=== PATIENT | female | born 1965 | race Two or more races ===

== ENCOUNTER 2018-10-26 18:33 | Emergency (ER) | payer SELFPAY ==
[~2018-10-26] VITALS: Ht 165.1 cm; Wt 95.3 kg
[2018-10-26] MEDS ORDERED: cefTRIAXone SOD 1,000 MG VL IM ONE (21:15)
[2018-10-26] MEDS ORDERED: DEXAMETHASONE SOD PHOS 10MG/1ML VIAL INJ IM ONE (21:15)
[2018-10-26 21:20] VITALS: BP 148/74
== END 2018-10-26 22:26 | disposition home or self-care (01) ==
LOC: ER 18:36
DX: Q69.9 Polydactyly, unspecified (principal)
CPT/HCPCS: 96372; 99283; J0696; J1100

== ENCOUNTER 2019-06-19 11:13 | Emergency (ER) | payer MEDICAID ==
[~2019-06-19] VITALS: Ht 167.6 cm; Wt 93.9 kg
[2019-06-19 11:45] VITALS: BP 142/71
== END 2019-06-19 13:43 | disposition home or self-care (01) ==
LOC: ER 11:13
DX: L98.9 Disorder of the skin and subcutaneous tissue, unspecified (principal)
CPT/HCPCS: 10120

== ENCOUNTER 2022-01-17 22:10 | Emergency (ER) | payer MEDICAID ==
[~2022-01-17] VITALS: Ht 170.2 cm; Wt 86.2 kg
[~2022-01-17 22:10] MED LIST: ASPI-431; ATOR40TA52; INSU1INJ26 SC; INSUINJ18 SC; LISI-716; METF-371
[2022-01-17 23:07] LABS: Eosinophils # (auto) 0 10 ^3/uL (0-0.8); Hemoglobin 12.4 g/dL (12.2-16.2); Lymphocytes # (auto) 2.2 10 ^3/uL (0.4-5.4)
[2022-01-17 23:11] LABS: Basophils # (auto) 0 10 ^3/uL (0-0.2); Basophils % (auto) 0.3 % (0.0-2.0); Hematocrit 38.2 % (36.0-46.0); Lymphocytes % (auto) 13.7 % (10.0-50.0); Mean Corpuscular Hemoglobin 26.3 pg (28.0-32.0); Mean Corpuscular Hgb Conc. 32.6 g/dL (32.0-36.0); Mean Corpuscular Volume 80.9 fL (80.0-100.0); Monocytes # (auto) 1.1 10 ^3/uL (0-1.3); Monocytes % (auto) 6.6 % (0.0-12.0); Neutrophils # (auto) 12.6 10 ^3/uL (1.6-8.6); Neutrophils % (auto) 79.4 % (37.0-80.0); Nucleated Red Blood Cells % 0.1 %; Red Blood Cells 4.72 10^6/uL (4.0-5.20); Red Cell Distribution Width 14.4 % (11.8-14.3); White Blood Cell 15.9 10^3/uL (4.4-10.8)
[2022-01-17 23:27] LABS: Albumin 3.2 g/dL (3.4-5.0); Potassium 4.2 mmol/L (3.5-5.1)
[2022-01-17 23:29] LABS: Bilirubin, Total 0.6 mg/dL (0.2-1.0); Total Protein 7.5 g/dL (6.4-8.2)
[2022-01-17] MEDS ORDERED: ACETAMINOPHEN 500 MG TAB PO ONE (23:45)
[2022-01-18 02:09] LABS: Urine Bacteria NONE SEEN /hpf (None Seen); Urine Blood TRACE /uL (Negative); Urine Mucus FEW (None Seen); Urine Specific Gravity 1.024 (1.001-1.035); Urine WBC 17 /hpf (0 - 5)
[2022-01-18] MEDS ORDERED: PRED20TA2 PO (05:50)
[2022-01-18] MEDS ORDERED: ACE3T PO (05:50)
[2022-01-18] MEDS ORDERED: LEVO500T31 PO (05:50)
[2022-01-18 06:09] VITALS: BP 113/47
== END 2022-01-18 06:11 | disposition home or self-care (01) ==
LOC: ER 22:10
DX: N39.0 Urinary tract infection, site not specified (principal); J20.9 Acute bronchitis, unspecified; Z20.822 Contact with and (suspected) exposure to COVID-19
CPT/HCPCS: 36415; 71045; 74176; 80053; 81001; 84484; 85025; 93005

== ENCOUNTER 2022-11-01 18:03 | Emergency (ER) | payer MEDICAID ==
[~2022-11-01] VITALS: Ht 167.6 cm; Wt 86.0 kg
[~2022-11-01 18:03] MED LIST changes: +ACE3T PO; +LEVO500T31 PO; +PRED20TA2 PO
[2022-11-01 18:17] VITALS: BP 150/89
[2022-11-01 18:59] LABS: Urine Bacteria NONE SEEN /hpf (None Seen); Urine Blood TRACE /uL (Negative); Urine Specific Gravity 1.026 (1.001-1.035); Urine WBC 3 /hpf (0 - 5)
[2022-11-01 19:41] LABS: Basophils # (auto) 0 10 ^3/uL (0-0.2); Basophils % (auto) 0.3 % (0.0-2.0); Eosinophils # (auto) 0 10 ^3/uL (0-0.8); Hematocrit 38.3 % (36.0-46.0); Hemoglobin 12.1 g/dL (12.2-16.2); Lymphocytes % (auto) 14.1 % (10.0-50.0); Mean Corpuscular Hemoglobin 25.3 pg (28.0-32.0); Mean Corpuscular Hgb Conc. 31.5 g/dL (32.0-36.0); Mean Corpuscular Volume 80.3 fL (80.0-100.0); Monocytes # (auto) 1.1 10 ^3/uL (0-1.3); Neutrophils # (auto) 11.2 10 ^3/uL (1.6-8.6); Neutrophils % (auto) 77.6 % (37.0-80.0); Nucleated Red Blood Cells % 0.1 %; Red Blood Cells 4.78 10^6/uL (4.0-5.20); Red Cell Distribution Width 15.1 % (11.8-14.3); White Blood Cell 14.4 10^3/uL (4.4-10.8)
[2022-11-01 19:45] LABS: BUN/Creatinine Ratio 11.9 (10.0-20.0); Calcium 8.8 mg/dL (8.5-10.1); Potassium 4.7 mmol/L (3.5-5.1)
[2022-11-01 19:48] LABS: Bilirubin, Total 0.5 mg/dL (0.2-1.0); Total Protein 8.2 g/dL (6.4-8.2)
[2022-11-01] MEDS ORDERED: SODIUM CHLORIDE 0.9% 1,000 ML IV ONE (22:00)
[2022-11-01] MEDS ORDERED: cefTRIAXone 1GM/50ML D5W 50 ML IV ONE (22:00)
[2022-11-01] MEDS ORDERED: InsuLIN REG 1unit/0.01ml Soln (100units/ml) IV ONE (22:00)
== END 2022-11-01 23:04 | disposition left against medical advice (07) ==
LOC: ER 18:03
DX: R05.9 Cough, unspecified (principal); E11.9 Type 2 diabetes mellitus without complications; E78.5 Hyperlipidemia, unspecified; I10 Essential (primary) hypertension; R11.2 Nausea with vomiting, unspecified
CPT/HCPCS: 36415; 71045; 80053; 81001; 82962; 84484; 85025

== ENCOUNTER 2022-11-09 17:55 | Inpatient (IN) | payer MEDICAID ==
[~2022-11-09] VITALS: Ht 167.6 cm; Wt 90.3 kg
[2022-11-09 18:39] LABS: Eosinophils % (auto) 0.3 % (0.0-7.0); Hemoglobin 10.8 g/dL (12.2-16.2); Monocytes # (auto) 1.2 10 ^3/uL (0-1.3); Nucleated Red Blood Cells % 0.1 %
[2022-11-09 18:41] LABS: Basophils # (auto) 0.1 10 ^3/uL (0-0.2); Basophils % (auto) 0.7 % (0.0-2.0); Eosinophils # (auto) 0 10 ^3/uL (0-0.8); Hematocrit 32.8 % (36.0-46.0); Lymphocytes # (auto) 2.6 10 ^3/uL (0.4-5.4); Lymphocytes % (auto) 15.3 % (10.0-50.0); Mean Corpuscular Hemoglobin 25.6 pg (28.0-32.0); Mean Corpuscular Hgb Conc. 32.9 g/dL (32.0-36.0); Mean Corpuscular Volume 77.8 fL (80.0-100.0); Monocytes % (auto) 7.2 % (0.0-12.0); Neutrophils # (auto) 12.9 10 ^3/uL (1.6-8.6); Neutrophils % (auto) 76.5 % (37.0-80.0); Red Blood Cells 4.22 10^6/uL (4.0-5.20); Red Cell Distribution Width 15.3 % (11.8-14.3); White Blood Cell 16.9 10^3/uL (4.4-10.8)
[2022-11-09 18:56] LABS: Albumin 2.6 g/dL (3.4-5.0); Calcium 9.3 mg/dL (8.5-10.1); Potassium 3.4 mmol/L (3.5-5.1)
[2022-11-09 18:59] LABS: Lactic Acid w/Reflex 2.1 mmol/L (0.4-2.0)
[2022-11-09 19:00] LABS: BUN/Creatinine Ratio 10.8 (10.0-20.0); Bilirubin, Total 0.4 mg/dL (0.2-1.0); Total Protein 8.9 g/dL (6.4-8.2)
[2022-11-09] MEDS ORDERED: PIPERACILLIN-TAZOB 3.375GM 100 ML IV ONE (19:15)
[2022-11-09] MEDS ORDERED: CLINDAMYCIN 600MG IV 50 ML IV ONE (20:30)
[2022-11-09] MEDS ORDERED: SODIUM CHLORIDE 0.9% 1,000 ML IV ONE ×2 (20:30)
[2022-11-09] MEDS ORDERED: NITROGLYCERIN 0.4 MG SL TAB SL PRN (23:30)
[2022-11-09] MEDS ORDERED: ONDANSETRON HCL 4 MG/2 ML VIAL IV PRN (23:30)
[2022-11-09] MEDS ORDERED: DOCUSATE SOD 100 MG CAP PO PRN (23:30)
[2022-11-09] MEDS ORDERED: DEXTROSE (50%) 50ML SYRG IV PRN (23:30)
[2022-11-09] MEDS ORDERED: MORPHINE SULFATE INJ 2 MG/ml SYRG IV PRN ×2 (23:30)
[2022-11-09] MEDS ORDERED: HYDROcodone-ACET 5/325MG TAB PO PRN (23:30)
[2022-11-10] VITALS (7 sets, daily range): BP systolic 103–138; BP diastolic 43–67
[2022-11-10] MEDS ORDERED: CLINDAMYCIN 600MG IV 50 ML IV SCH (06:00)
[2022-11-10] MEDS: SODIUM CHLOR 0.9% PF (SALINE LOCK) 10ML VIAL/SYR IV SCH ×3 (06:10→21:25)
[2022-11-10] MEDS: PIPERACILLIN-TAZOB 3.375GM 100 ML IV SCH ×3 (06:10→21:22)
[2022-11-10] MEDS: InsuLIN REG 1unit/0.01ml Soln (100units/ml) SC SCH ×4 (06:18→21:41)
[2022-11-10] MEDS: ACCU-CHEK COMFORT CURVE STRIP VI SCH ×4 (06:18→21:26)
[2022-11-10 06:25] LABS: Basophils # (auto) 0 10 ^3/uL (0-0.2); Eosinophils # (auto) 0.1 10 ^3/uL (0-0.8); Eosinophils % (auto) 0.5 % (0.0-7.0); Monocytes # (auto) 0.9 10 ^3/uL (0-1.3)
[2022-11-10 06:27] LABS: Basophils % (auto) 0.3 % (0.0-2.0); Hematocrit 29.9 % (36.0-46.0); Hemoglobin 9.6 g/dL (12.2-16.2); Lymphocytes # (auto) 2.8 10 ^3/uL (0.4-5.4); Lymphocytes % (auto) 21.5 % (10.0-50.0); Mean Corpuscular Volume 78.1 fL (80.0-100.0); Monocytes % (auto) 7.4 % (0.0-12.0); Neutrophils % (auto) 70.3 % (37.0-80.0); Red Blood Cells 3.83 10^6/uL (4.0-5.20); Red Cell Distribution Width 15.1 % (11.8-14.3); White Blood Cell 12.8 10^3/uL (4.4-10.8)
[2022-11-10 06:37] LABS: Potassium 3.8 mmol/L (3.5-5.1)
[2022-11-10 06:53] LABS: BUN/Creatinine Ratio 12.5 (10.0-20.0); Bilirubin, Total 0.3 mg/dL (0.2-1.0); Calcium 8.5 mg/dL (8.5-10.1); Total Protein 7.1 g/dL (6.4-8.2)
[2022-11-10] MEDS: CLINDAMYCIN 600MG IV 50 ML IV SCH ×2 (10:00→18:00)
[2022-11-10] MEDS: ASPirin-EC 81 mg tab PO SCH (10:29)
[2022-11-10] MEDS: LISINOPRIL 10 MG TAB PO SCH (10:30)
[2022-11-10] MEDS ORDERED: GADOTERATE MEG 10 MMOL/20ml INJ (0.5MMOL/ml) IV ONE (11:07)
[2022-11-10] MEDS ORDERED: LIDOCAINE 1% HCL (LOCAL ANESTH.) INJ 20ML MDV IJ ONE ×2 (12:30)
[2022-11-10] MEDS: ATORVASTATIN 20 MG TAB PO SCH (21:22)
[2022-11-10] MEDS: DAKINS QUARTER STR 0.125% (NaHypochlorite) 473 ML TOPICAL SOL TOP SCH (21:26)
[2022-11-11 00:20] LABS: Urine WBC None Seen /hpf (0 - 5)
[2022-11-11 00:34] LABS: Urine Bacteria NONE SEEN /hpf (None Seen); Urine Blood Negative /uL (Negative); Urine Specific Gravity 1.005 (1.001-1.035)
[2022-11-11] MEDS: CLINDAMYCIN 600MG IV 50 ML IV SCH ×2 (02:00→10:00)
[2022-11-11 05:00] VITALS: BP 117/50
[2022-11-11 05:15] LABS: Eosinophils # (auto) 0.1 10 ^3/uL (0-0.8); Lymphocytes # (auto) 3.6 10 ^3/uL (0.4-5.4); Monocytes # (auto) 0.8 10 ^3/uL (0-1.3)
[2022-11-11 05:18] LABS: Basophils # (auto) 0 10 ^3/uL (0-0.2); Basophils % (auto) 0.5 % (0.0-2.0); Eosinophils % (auto) 0.9 % (0.0-7.0); Hematocrit 29.3 % (36.0-46.0); Hemoglobin 9.6 g/dL (12.2-16.2); Lymphocytes % (auto) 37.2 % (10.0-50.0); Mean Corpuscular Hemoglobin 25.5 pg (28.0-32.0); Mean Corpuscular Hgb Conc. 32.9 g/dL (32.0-36.0); Mean Corpuscular Volume 77.5 fL (80.0-100.0); Monocytes % (auto) 8.6 % (0.0-12.0); Neutrophils # (auto) 5.2 10 ^3/uL (1.6-8.6); Neutrophils % (auto) 52.8 % (37.0-80.0); Nucleated Red Blood Cells % 0.2 %; Red Blood Cells 3.77 10^6/uL (4.0-5.20); Red Cell Distribution Width 15.1 % (11.8-14.3); White Blood Cell 9.8 10^3/uL (4.4-10.8)
[2022-11-11 05:33] LABS: BUN/Creatinine Ratio 10.6 (10.0-20.0); Magnesium 1.9 mg/dL (1.6-2.6); Potassium 4.8 mmol/L (3.5-5.1)
[2022-11-11] MEDS: SODIUM CHLOR 0.9% PF (SALINE LOCK) 10ML VIAL/SYR IV SCH ×3 (05:38→21:46)
[2022-11-11] MEDS: PIPERACILLIN-TAZOB 3.375GM 100 ML IV SCH ×3 (05:38→23:30)
[2022-11-11] MEDS: ACCU-CHEK COMFORT CURVE STRIP VI SCH ×4 (06:21→22:00)
[2022-11-11] MEDS: InsuLIN REG 1unit/0.01ml Soln (100units/ml) SC SCH ×4 (06:26→21:56)
[2022-11-11 09:14] VITALS: BP 111/51
[2022-11-11] MEDS: ASPirin-EC 81 mg tab PO SCH (10:18)
[2022-11-11] MEDS: LISINOPRIL 10 MG TAB PO SCH (10:19)
[2022-11-11] MEDS: DAKINS QUARTER STR 0.125% (NaHypochlorite) 473 ML TOPICAL SOL TOP SCH ×2 (10:21→22:00)
[2022-11-11] MEDS ORDERED: PATIENTS OWN MEDICATION (zyvox 600 MG) IV SCH (13:00)
[2022-11-11 13:04] VITALS: BP 126/57
[2022-11-11] MEDS ORDERED: LINEZOLID 600MG/300ML 300 ML IV SCH (13:08)
[2022-11-11] MEDS: INSULIN 70/30 1unit/0.01ml Susp (100units/ml) SC SCH ×2 (13:16→17:46)
[2022-11-11] MEDS ORDERED: LINEZOLID 600MG/300ML 300 ML IV ONE (13:45)
[2022-11-11 17:00] VITALS: BP 126/60
[2022-11-11 20:00] VITALS: BP 126/60
[2022-11-11] MEDS: LINEZOLID 600MG/300ML 300 ML IV SCH (21:55)
[2022-11-11] MEDS: ATORVASTATIN 20 MG TAB PO SCH (21:56)
[2022-11-12 05:00] VITALS: BP 96/43
[2022-11-12] MEDS: PIPERACILLIN-TAZOB 3.375GM 100 ML IV SCH ×3 (05:21→22:05)
[2022-11-12] MEDS: SODIUM CHLOR 0.9% PF (SALINE LOCK) 10ML VIAL/SYR IV SCH ×3 (05:21→21:50)
[2022-11-12] MEDS: ACCU-CHEK COMFORT CURVE STRIP VI SCH ×4 (06:06→21:51)
[2022-11-12] MEDS: InsuLIN REG 1unit/0.01ml Soln (100units/ml) SC SCH ×5 (06:06→21:51)
[2022-11-12] MEDS: INSULIN 70/30 1unit/0.01ml Susp (100units/ml) SC SCH ×2 (08:00→17:52)
[2022-11-12] MEDS: LINEZOLID 600MG/300ML 300 ML IV SCH ×2 (08:23)
[2022-11-12] MEDS: ASPirin-EC 81 mg tab PO SCH (08:23)
[2022-11-12 08:47] VITALS: BP 108/68
[2022-11-12] MEDS: LISINOPRIL 10 MG TAB PO SCH (08:53)
[2022-11-12] MEDS: DAKINS QUARTER STR 0.125% (NaHypochlorite) 473 ML TOPICAL SOL TOP SCH ×2 (08:53→21:51)
[2022-11-12 13:00] VITALS: BP 144/69
[2022-11-12 17:00] VITALS: BP 115/55
[2022-11-12] MEDS: ACETAMINOPHEN 325 MG TAB PO PRN (18:25)
[2022-11-12 20:00] VITALS: BP 115/55
[2022-11-12] MEDS: ATORVASTATIN 20 MG TAB PO SCH (21:51)
[2022-11-12 22:00] VITALS: BP 121/44
[2022-11-13 05:00] VITALS: BP 134/58
[2022-11-13] MEDS: PIPERACILLIN-TAZOB 3.375GM 100 ML IV SCH ×3 (06:02→21:37)
[2022-11-13] MEDS: SODIUM CHLOR 0.9% PF (SALINE LOCK) 10ML VIAL/SYR IV SCH ×4 (06:02→21:39)
[2022-11-13] MEDS: ACCU-CHEK COMFORT CURVE STRIP VI SCH ×4 (06:03→21:44)
[2022-11-13] MEDS: ASPirin-EC 81 mg tab PO SCH (08:25)
[2022-11-13] MEDS: LISINOPRIL 10 MG TAB PO SCH (08:26)
[2022-11-13] MEDS: INSULIN 70/30 1unit/0.01ml Susp (100units/ml) SC SCH ×2 (08:30→19:07)
[2022-11-13 08:52] VITALS: BP 140/65
[2022-11-13] MEDS: DAKINS QUARTER STR 0.125% (NaHypochlorite) 473 ML TOPICAL SOL TOP SCH ×2 (10:15→21:44)
[2022-11-13] MEDS: LINEZOLID 600MG/300ML 300 ML IV SCH ×2 (10:15→21:38)
[2022-11-13 13:00] VITALS: BP 110/61
[2022-11-13] MEDS: InsuLIN REG 1unit/0.01ml Soln (100units/ml) SC SCH ×3 (15:18→21:44)
[2022-11-13 16:51] LABS: INR 1.04 (0.9-1.15); Partial Thromboplastin Time 23.9 sec (24.6-33.4)
[2022-11-13] MEDS: ACETAMINOPHEN 325 MG TAB PO PRN (17:12)
[2022-11-13] MEDS ORDERED: LIDOCAINE 1% (LOCAL ANESTH.) PF 5ml SDV ID ONE (19:15)
[2022-11-13 20:00] VITALS: BP 111/56
[2022-11-13] MEDS: ATORVASTATIN 20 MG TAB PO SCH ×3 (21:37→23:00)
[2022-11-13 23:03] VITALS: BP 111/56
[2022-11-14 04:41] VITALS: BP 110/55
[2022-11-14] MEDS: PIPERACILLIN-TAZOB 3.375GM 100 ML IV SCH (05:30)
[2022-11-14] MEDS: SODIUM CHLOR 0.9% PF (SALINE LOCK) 10ML VIAL/SYR IV SCH ×3 (05:30→14:16)
[2022-11-14] MEDS: ACCU-CHEK COMFORT CURVE STRIP VI SCH ×3 (06:30→17:57)
[2022-11-14] MEDS: InsuLIN REG 1unit/0.01ml Soln (100units/ml) SC SCH ×3 (06:36→17:00)
[2022-11-14] MEDS ORDERED: VANCOMYCIN PER PHARMACY 0 MG IV SCH (07:45)
[2022-11-14 08:00] VITALS: BP 139/58
[2022-11-14] MEDS: INSULIN 70/30 1unit/0.01ml Susp (100units/ml) SC SCH ×2 (08:00→18:00)
[2022-11-14 09:00] VITALS: BP 139/58
[2022-11-14] MEDS ORDERED: CEFEPIME 2 GM in SODIUM CHL 0.9% 50 ML IV SCH (09:00)
[2022-11-14] MEDS: ASPirin-EC 81 mg tab PO SCH (10:50)
[2022-11-14] MEDS: LISINOPRIL 10 MG TAB PO SCH (10:51)
[2022-11-14] MEDS ORDERED: VANCOMYCIN 1GM/250ML 250 ML IV SCH (11:00)
[2022-11-14] MEDS: DAKINS QUARTER STR 0.125% (NaHypochlorite) 473 ML TOPICAL SOL TOP SCH (11:08)
[2022-11-14 13:00] VITALS: BP 112/75
[2022-11-14 17:00] VITALS: BP 117/60
[2022-11-14 18:24] VITALS: BP 112/75
[2022-11-15] MEDS ORDERED: VANCOMYCIN 1GM/250ML 250 ML IV SCH (01:00)
== END 2022-11-14 21:10 | disposition home health service (06) | DRG 720 ==
LOC: ER 17:55 → OVERFLOW 23:27 → TELE-EAST 11-10 00:40 → EAST 11-10 00:42
PROVIDERS: ADMIT Nurse Practitioner Family; ATTEND Internal Medicine
PROC: 0Y9N0ZZ Drainage of Left Foot, Open Approach (ICD-10-PCS; 2022-11-10)
PROC: 0JBQ0ZZ Excision of Right Foot Subcutaneous Tissue and Fascia, Open Approach (ICD-10-PCS; 2022-11-12)
PROC: 02HV33Z Insertion of Infusion Device into Superior Vena Cava, Percutaneous Approach (ICD-10-PCS; principal; 2022-11-13)
DX: A41.9 Sepsis, unspecified organism (principal); E87.20 Acidosis, unspecified; A48.0 Gas gangrene; E46 Unspecified protein-calorie malnutrition; N17.9 Acute kidney failure, unspecified; E11.52 Type 2 diabetes mellitus with diabetic peripheral angiopathy with gangrene; M86.172 Other acute osteomyelitis, left ankle and foot; E11.621 Type 2 diabetes mellitus with foot ulcer; D50.9 Iron deficiency anemia, unspecified; E88.09 Other disorders of plasma-protein metabolism, not elsewhere classified; L02.612 Cutaneous abscess of left foot; L03.116 Cellulitis of left lower limb; L97.512 Non-pressure chronic ulcer of other part of right foot with fat layer exposed; L97.522 Non-pressure chronic ulcer of other part of left foot with fat layer exposed; E11.69 Type 2 diabetes mellitus with other specified complication; E78.5 Hyperlipidemia, unspecified; I10 Essential (primary) hypertension; Z68.32 Body mass index [BMI] 32.0-32.9, adult; Z80.0 Family history of malignant neoplasm of digestive organs; Z80.8 Family history of malignant neoplasm of other organs or systems; Z79.4 Long term (current) use of insulin
CPT/HCPCS: 36415; 36569; 73700; 73720; 80048; 80053; 81001; 82962; 83036; 83605; 83735; 84484; 85025; 85610; 85730; 87040; 87205; 96361; 96365; 96366; G0378; J1815; J2001; J2543

== ENCOUNTER 2022-12-01 20:07 | Emergency (ER) | payer MEDICAID ==
[~2022-12-01] VITALS: Ht 167.6 cm; Wt 90.9 kg
[~2022-12-01 20:07] MED LIST changes: -ACE3T PO; -LEVO500T31 PO; -PRED20TA2 PO
[2022-12-01] MEDS ORDERED: DexAMETHasone SOD PHOS 10MG/1ML VIAL INJ IM ONE (21:00)
[2022-12-01] MEDS ORDERED: hydrOXYzine 25 MG TAB or CAP PO ONE (21:00)
[2022-12-01] MEDS ORDERED: LEVO500T31 IV (22:00)
[2022-12-01] MEDS ORDERED: HYDR-3682 PO (22:06)
[2022-12-01 22:53] VITALS: BP 105/48
[2022-12-01] MEDS ORDERED: ACETAMINOPHEN 500 MG TAB PO ONE (23:15)
== END 2022-12-01 23:28 | disposition home or self-care (01) ==
LOC: ER 20:07
DX: R21 Rash and other nonspecific skin eruption (principal); T36.1X5A Adverse effect of cephalosporins and other beta-lactam antibiotics, initial encounter; E11.9 Type 2 diabetes mellitus without complications; E78.5 Hyperlipidemia, unspecified; I10 Essential (primary) hypertension; Y92.89 Other specified places as the place of occurrence of the external cause
CPT/HCPCS: 96372; 99283; J1100

== ENCOUNTER 2024-01-30 18:32 | Inpatient (IN) | payer MEDICAID ==
[~2024-01-30] VITALS: Ht 157.5 cm; Wt 93.6 kg
[~2024-01-30 18:32] MED LIST changes: +HYDR-3682 PO; +LEVO500T31 IV; -LISI-716; +LISI10TA34
[2024-01-30] MEDS: ACETAMINOPHEN 325 MG TAB PO ONE (19:01)
[2024-01-30 19:31] LABS: Basophils # (auto) 0.1 10 ^3/uL (0-0.2); Eosinophils # (auto) 0 10 ^3/uL (0-0.8); Eosinophils % (auto) 0.1 % (0.0-7.0); Hemoglobin 11.5 g/dL (12.2-16.2); Lymphocytes # (auto) 1.1 10 ^3/uL (0.4-5.4); Mean Corpuscular Hgb Conc. 32.9 g/dL (32.0-36.0); Monocytes # (auto) 0.6 10 ^3/uL (0-1.3); Red Blood Cells 4.31 10^6/uL (4.0-5.20)
[2024-01-30 19:34] LABS: Basophils % (auto) 0.4 % (0.0-2.0); Hematocrit 34.9 % (36.0-46.0); Lymphocytes % (auto) 7.8 % (10.0-50.0); Mean Corpuscular Hemoglobin 26.6 pg (28.0-32.0); Mean Corpuscular Volume 80.9 fL (80.0-100.0); Neutrophils # (auto) 12.1 10 ^3/uL (1.6-8.6); Neutrophils % (auto) 87.7 % (37.0-80.0); Nucleated Red Blood Cells % 0.1 %; Red Cell Distribution Width 14.6 % (11.8-14.3); White Blood Cell 13.8 10^3/uL (4.4-10.8)
[2024-01-30 19:51] LABS: Alanine Aminotransferase 35 U/L (7-40); Albumin 3.8 g/dL (3.2-4.8); Alkaline Phosphatase 123 U/L (46-116); Anion Gap 8 (5-15); Aspartate Aminotransferase 35 U/L (13-40); BUN/Creatinine Ratio 11.3 (10.0-20.0); Bilirubin, Total 0.7 mg/dL (0.2-1.0); Blood Urea Nitrogen 11 mg/dL (9-23); Calcium 9.2 mg/dL (8.7-10.4); Carbon Dioxide 22 mmol/L (20-30); Chloride 99 mmol/L (98-107); Potassium 4.3 mmol/L (3.5-5.1); Sodium 129 mmol/L (136-145)
[2024-01-30 20:11] LABS: Lactic Acid w/Reflex 2.1 mmol/L (0.4-2.0)
[2024-01-30 20:12] LABS: Glucose 405 mg/dL (74-106)
[2024-01-30] MEDS: SODIUM CHLORIDE 0.9% 1,500 ML IV ONE (20:40)
[2024-01-30 21:42] LABS: INR 1.06 (0.9-1.15); Partial Thromboplastin Time 26.6 SEC (24.5-34.5); Prothrombin Time 11.2 sec (9.3-11.8)
[2024-01-30] MEDS: cefTRIAXone 1GM/50ML D5W 50 ML IV SCH (22:16)
[2024-01-30] MEDS: VANCOMYCIN 1GM/200ML 200 ML IV SCH (22:18)
[2024-01-31] MEDS ORDERED: MORPHINE SULFATE INJ 2 MG/ml SYRG IV PRN (00:30)
[2024-01-31] MEDS ORDERED: DEXTROSE (50%) 50ML SYRG IV PRN ×2 (00:30→09:30)
[2024-01-31] MEDS ORDERED: ONDANSETRON HCL 4 MG/2 ML VIAL IV PRN (00:30)
[2024-01-31] MEDS: CLINDAMYCIN 900MG IV 50 ML IV ONE (01:00)
[2024-01-31] MEDS: HYDROcodone-ACET 5/325MG TAB PO PRN (01:16)
[2024-01-31] MEDS: InsuLIN REG 1unit/0.01ml Soln (100units/ml) SC ONE (01:41)
[2024-01-31] MEDS: ACCU-CHEK COMFORT CURVE STRIP VI SCH ×2 (04:45→11:30)
[2024-01-31] MEDS: InsuLIN REG 1unit/0.01ml Soln (100units/ml) SC SCH ×3 (04:58→21:39)
[2024-01-31 05:40] VITALS: PULSE 84; RESP 18; O2SAT 97
[2024-01-31] MEDS: CLINDAMYCIN 900MG IV 50 ML IV SCH (05:57)
[2024-01-31] MEDS: LISINOPRIL 5 MG TAB PO SCH (08:10)
[2024-01-31 09:00] VITALS: BP 147/71; PULSE 96; RESP 18; TEMP 100; O2SAT 98
[2024-01-31] MEDS ORDERED: VANCOMYCIN PER PHARMACY 0 MG IV SCH (09:45)
[2024-01-31 11:30] LABS: Triglycerides 158 mg/dL (< 150)
[2024-01-31 11:31] LABS: LDL Cholesterol 64 mg/dL (< 100)
[2024-01-31 11:32] LABS: Cholesterol 122 mg/dL (< 200); HDL Cholesterol 32 mg/dL (40-59)
[2024-01-31 13:00] VITALS: BP 131/62; PULSE 89; RESP 16; TEMP 99; O2SAT 97
[2024-01-31] MEDS: LINEZOLID 600MG/300ML 300 ML IV SCH (14:18)
[2024-01-31] MEDS: ASPirin 81 mg TAB PO ONE (14:22)
[2024-01-31 16:08] LABS: Triglycerides 177 mg/dL (< 150)
[2024-01-31 16:09] LABS: LDL Cholesterol 71 mg/dL (< 100)
[2024-01-31 16:10] LABS: Cholesterol 136 mg/dL (< 200); HDL Cholesterol 33 mg/dL (40-59)
[2024-01-31 17:00] VITALS: BP 104/52; PULSE 95; RESP 17; TEMP 99.6; O2SAT 94
[2024-01-31 17:34] LABS: Urine Bacteria None Seen /hpf (None Seen)
[2024-01-31] MEDS: PANTOPRAZOLE 40 MG TAB PO ONE (17:52)
[2024-01-31] MEDS: ENOXAPARIN SOD 40 MG/0.4 ML SYRINGE SC ONE (17:54)
[2024-01-31 17:55] LABS: Urine Blood 1+ /uL (Negative); Urine Clarity Clear (Clear); Urine Color Light-Yellow (Yellow); Urine Protein, UAD 1+ (Negative); Urine Specific Gravity 1.023 (1.001-1.035); Urine Urobilinogen Normal (Negative); Urine WBC 1 /hpf (0 - 5)
[2024-01-31] MEDS: CEFEPIME 1GM/ 50ML 50 ML IV SCH (17:55)
[2024-01-31] MEDS: INSULIN LANTUS (GLARGINE) 1 /0.01ml (100units/ml) SC SCH (18:08)
[2024-01-31 20:10] LABS: Rapid Influenza A Negative (Negative); Rapid Influenza B Negative (Negative)
[2024-01-31 20:11] LABS: COVID19 ANTIGEN SOFIA FIA NEGATIVE (NEGATIVE)
[2024-01-31 21:00] VITALS: BP_SYST 128; BP_SYST 98; BP_DIAS 53; BP_DIAS 69; PULSE 66; PULSE 91; RESP 21; TEMP 100.5; TEMP 98.1; O2SAT 96; O2SAT 98
[2024-01-31] MEDS: ACETAMINOPHEN 325 MG TAB PO PRN (21:47)
[2024-01-31] MEDS: ATORVASTATIN 20 MG TAB PO SCH (21:47)
[2024-02-01] VITALS (7 sets, daily range): BP systolic 111–137; BP diastolic 40–81; PULSE 77–89; RESP 14–20; TEMP 97.5–100.1; O2SAT 95–97
[2024-02-01] MEDS: PANTOPRAZOLE 40 MG TAB PO SCH (05:58)
[2024-02-01 07:10] LABS: Basophils # (auto) 0 10 ^3/uL (0-0.2); Basophils % (auto) 0.1 % (0.0-2.0); Eosinophils # (auto) 0 10 ^3/uL (0-0.8); Eosinophils % (auto) 0.3 % (0.0-7.0); Monocytes # (auto) 1.5 10 ^3/uL (0-1.3)
[2024-02-01 07:13] LABS: Hematocrit 32.3 % (36.0-46.0); Hemoglobin 10.7 g/dL (12.2-16.2); Lymphocytes # (auto) 2.1 10 ^3/uL (0.4-5.4); Mean Corpuscular Hemoglobin 26.4 pg (28.0-32.0); Mean Corpuscular Volume 80.1 fL (80.0-100.0); Monocytes % (auto) 10.9 % (0.0-12.0); Neutrophils # (auto) 10.3 10 ^3/uL (1.6-8.6); Neutrophils % (auto) 73.7 % (37.0-80.0); Nucleated Red Blood Cells % 0.1 %; Red Blood Cells 4.03 10^6/uL (4.0-5.20); Red Cell Distribution Width 14.4 % (11.8-14.3)
[2024-02-01 07:28] LABS: Chloride 102 mmol/L (98-107); Potassium 4.1 mmol/L (3.5-5.1)
[2024-02-01 07:29] LABS: Anion Gap 7 (5-15); Carbon Dioxide 26 mmol/L (20-30)
[2024-02-01 07:34] LABS: BUN/Creatinine Ratio 9.2 (10.0-20.0); Blood Urea Nitrogen 7 mg/dL (9-23); Glucose 238 mg/dL (74-106)
[2024-02-01 07:46] LABS: Sodium 135 mmol/L (136-145)
[2024-02-01] MEDS: ASPirin 81 mg TAB PO SCH (09:27)
[2024-02-01] MEDS: ENOXAPARIN SOD 40 MG/0.4 ML SYRINGE SC SCH (09:28)
[2024-02-01] MEDS: IRON SUCROSE COMPLEX 100 ML IV SCH (14:30)
[2024-02-01] MEDS ORDERED: IOHEXOL 350 MG/ML 100ML IJ ONE (17:38)
[2024-02-02] VITALS (8 sets, daily range): BP systolic 122–138; BP diastolic 51–63; PULSE 65–85; RESP 16–18; TEMP 98.1–99.3; O2SAT 92–99
[2024-02-02] MEDS: CEFEPIME 1GM/ 50ML 50 ML IV SCH (00:13)
[2024-02-02 06:46] LABS: Basophils # (auto) 0 10 ^3/uL (0-0.2); Basophils % (auto) 0.3 % (0.0-2.0); Eosinophils # (auto) 0.1 10 ^3/uL (0-0.8); Hemoglobin 10.4 g/dL (12.2-16.2); Monocytes # (auto) 1.2 10 ^3/uL (0-1.3); Red Blood Cells 3.88 10^6/uL (4.0-5.20)
[2024-02-02 06:49] LABS: Hematocrit 31.3 % (36.0-46.0); Lymphocytes # (auto) 2.6 10 ^3/uL (0.4-5.4); Lymphocytes % (auto) 20.4 % (10.0-50.0); Mean Corpuscular Hemoglobin 26.8 pg (28.0-32.0); Mean Corpuscular Hgb Conc. 33.2 g/dL (32.0-36.0); Mean Corpuscular Volume 80.7 fL (80.0-100.0); Monocytes % (auto) 9.8 % (0.0-12.0); Neutrophils # (auto) 8.7 10 ^3/uL (1.6-8.6); Neutrophils % (auto) 68.5 % (37.0-80.0); Red Cell Distribution Width 14.2 % (11.8-14.3); White Blood Cell 12.6 10^3/uL (4.4-10.8)
[2024-02-02 06:50] LABS: Anion Gap 7 (5-15); Carbon Dioxide 25 mmol/L (20-30); Chloride 105 mmol/L (98-107); Potassium 3.8 mmol/L (3.5-5.1); Sodium 137 mmol/L (136-145)
[2024-02-02 06:52] LABS: Calcium 8.9 mg/dL (8.5-10.1)
[2024-02-02 06:56] LABS: Glucose 153 mg/dL (74-106)
[2024-02-02 06:57] LABS: BUN/Creatinine Ratio 8.6 (10.0-20.0); Blood Urea Nitrogen 6 mg/dL (9-23)
[2024-02-02] MEDS: cefTRIAXone 1GM/50ML D5W 50 ML IV ONE (10:31)
[2024-02-03] VITALS (7 sets, daily range): BP systolic 119–147; BP diastolic 41–69; PULSE 67–80; RESP 17–18; TEMP 98.1–99.8; O2SAT 95–96
[2024-02-03] MEDS: DOCUSATE SOD 100 MG CAP PO ONE (01:15)
[2024-02-03] MEDS: cefTRIAXone 1GM/50ML D5W 50 ML IV SCH (09:18)
[2024-02-03] MEDS: DOCUSATE SOD 100 MG CAP PO SCH (09:19)
[2024-02-03] MEDS: INSULIN LANTUS (GLARGINE) 1 /0.01ml (100units/ml) SC ONE (09:29)
[2024-02-03] MEDS ORDERED: DEXTROSE (50%) 50ML SYRG IV PRN (16:45)
[2024-02-03] MEDS: InsuLIN REG 1unit/0.01ml Soln (100units/ml) SC SCH (17:40)
[2024-02-03] MEDS: ACCU-CHEK COMFORT CURVE STRIP VI SCH (17:40)
[2024-02-04] VITALS (7 sets, daily range): BP systolic 128–140; BP diastolic 48–73; PULSE 64–78; RESP 16–18; TEMP 97.6–98.6; O2SAT 97–99
[2024-02-04] MEDS: INSULIN LANTUS (GLARGINE) 1 /0.01ml (100units/ml) SC SCH ×2 (06:26→17:35)
[2024-02-04 06:54] LABS: Basophils # (auto) 0.1 10 ^3/uL (0-0.2); Basophils % (auto) 0.7 % (0.0-2.0); Eosinophils # (auto) 0.3 10 ^3/uL (0-0.8); Eosinophils % (auto) 2.4 % (0.0-7.0); Hematocrit 34.1 % (36.0-46.0); Hemoglobin 11.5 g/dL (12.2-16.2); Lymphocytes # (auto) 3.3 10 ^3/uL (0.4-5.4); Lymphocytes % (auto) 28.5 % (10.0-50.0); Mean Corpuscular Hemoglobin 26.9 pg (28.0-32.0); Mean Corpuscular Hgb Conc. 33.9 g/dL (32.0-36.0); Mean Corpuscular Volume 79.5 fL (80.0-100.0); Monocytes # (auto) 1.1 10 ^3/uL (0-1.3); Monocytes % (auto) 9.2 % (0.0-12.0); Neutrophils # (auto) 6.8 10 ^3/uL (1.6-8.6); Neutrophils % (auto) 59.2 % (37.0-80.0); Nucleated Red Blood Cells % 0.1 %; Red Blood Cells 4.29 10^6/uL (4.0-5.20); Red Cell Distribution Width 14.1 % (11.8-14.3); White Blood Cell 11.5 10^3/uL (4.4-10.8)
[2024-02-04 07:00] LABS: Alanine Aminotransferase 29 U/L (7-40); Albumin 3.7 g/dL (3.2-4.8); Alkaline Phosphatase 140 U/L (46-116); Anion Gap 3 (5-15); Aspartate Aminotransferase 21 U/L (13-40); BUN/Creatinine Ratio 10.8 (10.0-20.0); Bilirubin, Total 0.3 mg/dL (0.2-1.0); Blood Urea Nitrogen 8 mg/dL (9-23); Calcium 9.3 mg/dL (8.5-10.1); Carbon Dioxide 29 mmol/L (20-30); Chloride 107 mmol/L (98-107); Glucose 106 mg/dL (74-106); Potassium 3.7 mmol/L (3.5-5.1); Sodium 139 mmol/L (136-145); Total Protein 6.7 g/dL (5.7-8.2)
[2024-02-04 07:08] LABS: CRP High Sensitivity 7.72 mg/dL (<1.0)
== END 2024-02-04 19:25 | disposition home health service (06) | DRG 720 ==
LOC: ER 18:32 → OVERFLOW 23:57 → EAST 01-31 05:40
PROVIDERS: ADMIT Internal Medicine Geriatric Medicine; ATTEND Internal Medicine Geriatric Medicine
DX: A41.9 Sepsis, unspecified organism (principal); E87.20 Acidosis, unspecified; E11.22 Type 2 diabetes mellitus with diabetic chronic kidney disease; L97.412 Non-pressure chronic ulcer of right heel and midfoot with fat layer exposed; E11.621 Type 2 diabetes mellitus with foot ulcer; D50.9 Iron deficiency anemia, unspecified; L03.115 Cellulitis of right lower limb; L97.522 Non-pressure chronic ulcer of other part of left foot with fat layer exposed; M86.671 Other chronic osteomyelitis, right ankle and foot; Z20.822 Contact with and (suspected) exposure to COVID-19; E11.69 Type 2 diabetes mellitus with other specified complication; E78.5 Hyperlipidemia, unspecified; I12.9 Hypertensive chronic kidney disease with stage 1 through stage 4 chronic kidney disease, or unspecified chronic kidney disease; N18.30 Chronic kidney disease, stage 3 unspecified; E11.65 Type 2 diabetes mellitus with hyperglycemia; Z79.4 Long term (current) use of insulin; Z80.49 Family history of malignant neoplasm of other genital organs; Z80.0 Family history of malignant neoplasm of digestive organs; Z88.1 Allergy status to other antibiotic agents; Z79.899 Other long term (current) drug therapy
CPT/HCPCS: 36415; 71045; 73700; 73706; 80048; 80053; 80061; 81001; 82553; 82728; 82962; 83036; 83540; 83550; 83605; 83735; 84439; 84443; 85025; 85379; 85610; 85730; 86141; 87040; 87077; 87081; 87186; 87205; 87426; 87804; 93970; 99291; G0378; J1756; J1815; J3490

== ENCOUNTER 2024-05-30 22:05 | Inpatient (IN) | payer MEDICAID ==
[~2024-05-30] VITALS: Ht 167.6 cm; Wt 90.0 kg
[~2024-05-30 22:05] MED LIST changes: -HYDR-3682 PO
--- NOTE | 2024-05-30 22:52 | ED.PDOC ---
Musculoskeletal HPI Comments 58-year-old female who came to ER due to right lower leg swelling. Patient does have history of hypertension and diabetes. Does have a diabetic right foot, status post debridement of a sore of the great toe recently. Noted open wound of the great toe. For the past week, noted swelling and burning pain of the right lower leg. Denies any fever. Patient was seen by wound care nurse and advised to come to the ER. Chief Complaint: Lower Extremity Time Seen by MD: 22:52 Primary Care Provider: SURY Erwin Notes: Nurses Notes Allergies: Coded Allergies: Vancomycin (Verified Allergy, Unknown, 01/30/24) RASH AND ITCHING Home Meds Active Scripts Levofloxacin (Levaquin) 500 Mg Tab, 500 MG IV DAILY for 10 Days, #10 INJ Please dispense in an IV formulary for the patient to self dispense through her PICC line Prov:MICAHEL JEAN PAC 12/01/22 Reported Medications Insulin Aspart Protamine & Asp (Insulin Aspart Protamine/ (70-30) 100 Unit/ml) 1 Inj Inj, 16 UNITS SC QPM, INJ 09/12/19 Insulin Aspart Protamine & Asp (Novolog Mix 70/30 Prefill (70-30) 100 Unit/ml) 1 Inj Inj, 56 UNITS SC QAM, INJ 09/12/19 Metformin Hydrochloride (Metformin Hcl) 850 Mg Tab 09/12/19 Aspirin (EQ ASPIRIN ADULT LOW DOSE) 81 Mg Tab 09/12/19 Atorvastatin Calcium (ATORVASTATIN CALCIUM) 40 Mg Tab 09/12/19 Lisinopril (Lisinopril) 10 Mg Tab 09/12/19 Mode of Arrival: Ambulatory Location: Right Extremity Location: Leg Timing: Days Prehospital treatment: None Severity: Moderate Able to Move Extremity: Yes Bear Weight: Fully Hand Dominance: Right Mechanism: Spontaneous Circumstances: Spontaneous Onset of Symptoms: Spontaneous Symptoms: Swelling DVT Risk Factors: NONE Associated signs and symptoms: Leg pain Past Medical History PAST MEDICAL HISTORY: DM, High Lipids, HTN Past Medical History (Other): Diabetic foot right status post debridement Surgical History: Denies all surgeries 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 Family History Family History: Reviewed,noncontributory to illness Social History Smoker: Non-Smoker Alcohol: Denies ETOH Use Drugs: Denies Drug Use Lives In: Home Constitutional: denies: chills, diaphoresis, fatigue, fever, malaise, sweats, weakness, others EENTM: denies: blurred vision, double vision, ear bleeding, ear discharge, ear drainage, ear pain, ear ringing, eye pain, eye redness, hearing loss, mouth pain, mouth swelling, nasal discharge, nose bleeding, nose congestion, nose pain, photophobia, tearing, throat pain, throat swelling, voice changes, others Respiratory: denies: cough, hemoptysis, orthopnea, SOB at rest, shortness of breath, SOB with excertion, stridor, wheezing, others Cardiovascular: denies: chest pain, dizzy spells, diaphoresis, Dyspnea on exertion, edema, irregular heart beat, left arm pain, lightheadedness, palpitations, PND, syncope, others Gastrointestinal: denies: abdomen distended, abdominal pain, blood streaked bowels, constipated, diarrhea, dysphagia, difficulty swallowing, hematemesis, melena, nausea, poor appetite, poor fluid intake, rectal bleeding, rectal pain, vomiting, others Genitourinary: denies: abnormal vagina bleeding, burning, dyspareunia, dysuria, flank pain, frequency, hematuria, incontinence, pain, , vagina discharge, urgency, others Neurological: denies: dizziness, fainting, headache, left sided numbness, left sided weakness, numbness, paresthesia, pre-existing deficit, right sided numbness, right sided weakness, seizure, speech problems, tingling, tremors, weakness, others Musculoskeletal: reports: others (Right lower leg swelling); denies: back pain, gout, joint pain, joint swelling, muscle pain, muscle stiffness, neck pain Integumetry: reports: wounds (Open wound base of great toe, right foot); denies: bruises, change in color, change in hair/nails, dryness, laceration, lesions, lumps, rash, others Allergic/Immunocompromised: denies: Difficulty Healing, Frequent Infections, Hives, Itching, others Hematologic/Lymphatic: denies: anemia, blood clots, easy bleeding, easy bruising, swollen glands, others Endocrine: denies: excessive hunger, excessive sweating, excessive thirst, excessive urination, flushing, intolerance to cold, intolerance to heat, unexplained weight gain, unexplained weight loss, others Psychiatric: denies: anxiety, bipolar disorder, depression, hopeless, panic disorder, schizophrenia, sleepless, suicidal, others Physical Exam General Appearance: No Apparent Distress, Normal HEENT: Normal ENT Inspection, Pharynx Normal, TMs Normal Neck: Full Range of Motion, Non-Tender, Normal, Normal Inspection Respiratory: Chest Non-Tender, Lungs Clear, No Accessory Muscle Use, No Respiratory Distress, Normal Breath Sounds Cardiovascular: No Edema, No JVD, No Murmur, No Gallop, Normal Peripheral Pulses, Regular Rate/Rhythm Breast Exam: Deferred Gastrointestinal: No Organomegaly, Non Tender, No Pulsatile Mass, Normal Bowel Sounds, Soft Genitalia: Deferred Pelvic: Deferred Rectal: Deferred Extremities: No calf tenderness, Normal capillary refill, Normal inspection, Normal range of motion, Non-tender, No pedal edema, Swelling (Right lower leg), Other (3 x 2 cm ulcerated sore of the great toe of the right foot) Musculoskeletal : Apperance: Normal Neurologic: Alert, marble polisher II-XII nml as Tested, No Motor Deficits, Normal Affect, Normal Mood, No Sensory Deficits Cerebellar Function: Normal Reflexes: Normal Skin: Dry, Normal Color, Warm Lymphatic: No Adenopathy Was a procedure done? Was a procedure done?: No Differential Diagnosis EXT Differential Diagnosis: Cellulitis, CHF, Deep Vein Thrombosis, Other (Diabetes) X-Ray, Labs, Meds, VS Vital Signs Date Time Temp Pulse Resp B/P (MAP) Pulse Ox O2 Delivery O2 Flow Rate FiO2 05/30/24 22:34 98.6 79 14 146/69 (94) 97 Lab Test 05/30/24 23:50 05/30/24 23:33 Range/Units POC Glucose 61 L 70-106 mg/dl White Blood Count 9.4 4.4-10.8 10^3/uL Red Blood Count 4.79 4.0-5.20 10^6/uL Hemoglobin 13.4 12.2-16.2 g/dL Hematocrit 40.3 36.0-46.0 % Mean Corpuscular Volume 84.2 80.0-100.0 fL Mean Corpuscular Hemoglobin 28.0 28.0-32.0 pg Mean Corpuscular Hemoglobin Concent 33.2 32.0-36.0 g/dL Red Cell Distribution Width 14.5 H 11.8-14.3 % Platelet Count 377 140-450 10^3/uL Mean Platelet Volume 6.8 L 6.9-10.8 fL Neutrophils (%) (Auto) 42.8 37.0-80.0 % Lymphocytes (%) (Auto) 49.4 10.0-50.0 % Monocytes (%) (Auto) 5.5 0.0-12.0 % Eosinophils (%) (Auto) 1.8 0.0-7.0 % Basophils (%) (Auto) 0.5 0.0-2.0 % Neutrophils # (Auto) 4.0 1.6-8.6 10 ^3/uL Lymphocytes # (Auto) 4.6 0.4-5.4 10 ^3/uL Monocytes # (Auto) 0.5 0-1.3 10 ^3/uL Eosinophils # (Auto) 0.2 0-0.8 10 ^3/uL Basophils # (Auto) 0 0-0.2 10 ^3/uL Nucleated Red Blood Cells 0.0 % Sodium Level 140 136-145 mmol/L Potassium Level 3.9 3.5-5.1 mmol/L Chloride Level 108 H 98-107 mmol/L Carbon Dioxide Level 27 20-31 mmol/L Anion Gap 5 5-15 Blood Urea Nitrogen 7 L 9-23 mg/dL Creatinine 0.85 0.550-1.02 mg/dL Glomerular Filtration Rate Calc 80 >90 mL/min BUN/Creatinine Ratio 8.2 L 10.0-20.0 Serum Glucose 73 L 74-106 mg/dL Calcium Level 9.7 8.7-10.4 mg/dL Time of 1ST Reevaluation: 22:48 Reevaluation 1ST: Unchanged Patient Education/Counseling: Diagnosis, Treatment Family Education/Counseling: No Family Present Departure 1 Departure Time of Disposition: 00:21 (Patient with worsening cellulitis and ulceration of the right foot. We will empirically cover with antibiotics and admit patient for further workup and expert consultation) Impression: Primary Impression: Cellulitis of right lower extremity Disposition: ADMITTED INPATIENT Admit to: Med Surg Condition: Serious Critical Care Note Critical Care Time?: No Stability Stability form required: No Heart Score Heart Score: Heart Score Response (Comments) Value History N/A 0 EKG N/A 0 Age N/A 0 Risk Factors N/A 0 Troponin N/A 0 Total 0 I personally scribed for RUDDY RODRIGUEZ MD ([email or web address]) on 05/30/24 at 22:52. Electronically submitted by Keagan Fraire ([facility] I personally scribed for RUDDY ROD[facility]IGUEZ MD ([facility] on 05/30/24 at 23:07. Electronically submitted by Keagan Fraire ([facility]). RUDDY RODRIGUEZ MD May 30, 2024 22:52
--- NOTE | 2024-05-30 23:11 | DVH ---
Right lower extremity venous duplex Clinical History: rle swelling and pain Comparison: None Technique: Duplex Doppler evaluation of the deep venous system of the right lower extremity from the common femo ral vein to the popliteal vein including color Doppler and spectral/pulsed waveform analysis was perf ormed. Findings: The common femoral vein demonstrates appropriate compressibility and waveform variability. There is compressibility/patency of the great saphenous vein at the proximal thigh. The femoral vein demonstrates appropriate compressibility and waveform variability. The deep femoral vein demonstrates appropriate compressibility and waveform variability. The popliteal vein demonstrates appropriate compressibility and waveform variability. There is normal compressibility at the tibioperoneal trunk. Impression: No right femoropopliteal venous thrombosis. If clinical concern/symptoms persist or worsen, short-interval follow-up study is suggested. Multiple lymph nodes seen throughout the extremity with largest measuring 4.3 cm in the mid thigh reg ion.
--- NOTE | 2024-05-30 23:38 | DVH ---
CLINICAL INDICATION: chronic wound TECHNIQUE: XY R FOOT 2 VIEW XRAY Comparison: CT of the right foot January 30, 2024 FINDINGS/IMPRESSION: Chronic appearing erosions, subluxations, and deformities of the 1st, 2nd, and 3rd MTP joints. Unchan ged soft tissue calcification of the distal right leg. Diffuse soft tissue edema. No definitive evide nce of acute fracture.
[2024-05-30 23:41] LABS: Basophils # (auto) 0 10 ^3/uL (0-0.2); Basophils % (auto) 0.5 % (0.0-2.0); Eosinophils # (auto) 0.2 10 ^3/uL (0-0.8); Eosinophils % (auto) 1.8 % (0.0-7.0); Hematocrit 40.3 % (36.0-46.0); Hemoglobin 13.4 g/dL (12.2-16.2); Lymphocytes # (auto) 4.6 10 ^3/uL (0.4-5.4); Lymphocytes % (auto) 49.4 % (10.0-50.0); Mean Corpuscular Hgb Conc. 33.2 g/dL (32.0-36.0); Mean Corpuscular Volume 84.2 fL (80.0-100.0); Monocytes # (auto) 0.5 10 ^3/uL (0-1.3); Monocytes % (auto) 5.5 % (0.0-12.0); Neutrophils % (auto) 42.8 % (37.0-80.0); Platelet Count (auto) 377 10^3/uL (140-450); Red Blood Cells 4.79 10^6/uL (4.0-5.20); Red Cell Distribution Width 14.5 % (11.8-14.3); White Blood Cell 9.4 10^3/uL (4.4-10.8)
[2024-05-30 23:55] LABS: Chloride 108 mmol/L (98-107); Potassium 3.9 mmol/L (3.5-5.1); Sodium 140 mmol/L (136-145)
[2024-05-30 23:56] LABS: Anion Gap 5 (5-15); Calcium 9.7 mg/dL (8.7-10.4); Carbon Dioxide 27 mmol/L (20-31)
[2024-05-31 00:01] LABS: BUN/Creatinine Ratio 8.2 (10.0-20.0); Blood Urea Nitrogen 7 mg/dL (9-23); Glucose 73 mg/dL (74-106)
[2024-05-31 00:30] VITALS: PULSE 80; RESP 18; O2SAT 98
[2024-05-31] MEDS ORDERED: DEXTROSE (50%) 50ML SYRG IV PRN (00:45)
[2024-05-31] MEDS ORDERED: DOCUSATE SOD 100 MG CAP PO PRN (00:45)
[2024-05-31] MEDS ORDERED: cloNIDine HCL 0.1 MG TAB PO PRN (00:45)
[2024-05-31] MEDS ORDERED: ONDANSETRON HCL 4 MG/2 ML VIAL IV PRN (00:45)
[2024-05-31] MEDS ORDERED: HYDROcodone-ACET 5/325MG TAB PO PRN (00:45)
[2024-05-31] MEDS: CLINDAMYCIN 900MG IV 50 ML IV ONE (01:02)
[2024-05-31 04:26] LABS: Basophils # (auto) 0 10 ^3/uL (0-0.2); Basophils % (auto) 0.4 % (0.0-2.0); Eosinophils # (auto) 0.2 10 ^3/uL (0-0.8); Eosinophils % (auto) 2.2 % (0.0-7.0); Hematocrit 36.9 % (36.0-46.0); Hemoglobin 12.5 g/dL (12.2-16.2); Lymphocytes # (auto) 3.7 10 ^3/uL (0.4-5.4); Lymphocytes % (auto) 45.1 % (10.0-50.0); Mean Corpuscular Hemoglobin 28.2 pg (28.0-32.0); Mean Corpuscular Hgb Conc. 33.9 g/dL (32.0-36.0); Mean Corpuscular Volume 83.1 fL (80.0-100.0); Monocytes # (auto) 0.5 10 ^3/uL (0-1.3); Monocytes % (auto) 6.6 % (0.0-12.0); Neutrophils # (auto) 3.8 10 ^3/uL (1.6-8.6); Neutrophils % (auto) 45.7 % (37.0-80.0); Nucleated Red Blood Cells % 0.1 %; Platelet Count (auto) 352 10^3/uL (140-450); Red Blood Cells 4.44 10^6/uL (4.0-5.20); Red Cell Distribution Width 14.3 % (11.8-14.3); White Blood Cell 8.3 10^3/uL (4.4-10.8)
[2024-05-31 04:46] LABS: Albumin 3.7 g/dL (3.2-4.8); Alkaline Phosphatase 83 U/L (46-116); Anion Gap 5 (5-15); Aspartate Aminotransferase < 8 U/L (13-40); BUN/Creatinine Ratio 10.8 (10.0-20.0); Bilirubin, Total 0.3 mg/dL (0.2-1.0); Blood Urea Nitrogen 9 mg/dL (9-23); Calcium 9.1 mg/dL (8.7-10.4); Carbon Dioxide 26 mmol/L (20-31); Chloride 109 mmol/L (98-107); Glucose 152 mg/dL (74-106); Potassium 3.9 mmol/L (3.5-5.1); Sodium 140 mmol/L (136-145); Total Protein 6.7 g/dL (5.7-8.2)
[2024-05-31 04:48] LABS: Alanine Aminotransferase < 9 U/L (7-40)
[2024-05-31] MEDS ORDERED: MORPHINE SULFATE INJ 2 MG/ml SYRG IV PRN (05:15)
[2024-05-31] MEDS ORDERED: NITROGLYCERIN 0.4 MG SL TAB SL PRN (05:15)
--- NOTE | 2024-05-31 05:31 | DVHHP2 ---
History of Present Illness Reason for Visit: Cellulitis of right lower extremity History of Present Illness The patient is a 58-year-old female with past medical history of DM, hyperlipidemia, and hypertension who presented to [facility] [place] ED for evaluation of right lower extremity swelling. Patient has diabetic right foot ulcer status post debridement of a sore of the great to recently, noted open wound of the great toe for the past week with swellings, burning pain, getting worse that prompted this visit. Patient was seen by wound care nurse and advised to come to the ER. Patient was seen and evaluated in the ED, laboratory data shows WBC 9.4, platelets 377, sodium 140, potassium 3.9, BUN 7, creatinine 0.85, glucose 73, blood pressure 146/59, heart rate 76, temperature 99.1 F, O2 saturation 98% on room air. Extremity venous study showed no right femoropopliteal venous thrombosis. Patient was started on IV antibiotic regimen clindamycin, please see medication orders section in the computer. On my assessment, patient denies chest pain, no headache, no dizziness, no diaphoresis, no shortness of breath, no nausea, no vomiting, no fever, no chills. Patient was admitted for further evaluation and medical management. Past Medical History DM, High Lipids, HTN Past Surgical History Diabetic foot right status post debridement Family History Reviewed, noncontributory to the management of this case. Past Social History The patient lives at home, denies smoking, alcohol or illicit drugs abuse. Review of Systems Constitutional: No: Fever, Chills, Sweats, Weakness, Malaise, Other Eyes: No: Pain, Vision change, Conjunctivae inflammation, Eyelid inflammation, Other, Redness ENT: No: Ear pain, Ear discharge, Nose pain, Nose discharge, Nose congestion, Mouth pain, Mouth swelling, Throat pain, Throat swelling, Other Respiratory: No: Cough, Dry, Shortness of breath, SOB with excertion, Wheezing, Hemoptysis, Pleuritic Pain, Sputum, Wheezing, Other Cardiovascular: No: Chest Pain, Palpitations, Orthopnea, Paroxysmal Noc. Dyspnea, Edema, Lt Headedness, Other Gastrointestinal: No: Nausea, Vomiting, Abdominal Pain, Diarrhea, Constipation, Melena, Hematochezia, Other Genitourinary: No Dysuria, No Frequency, No Incontinence, No Hematuria, No Retention, No Other Musculoskeletal: other (Right lower leg swelling.); No: neck pain, shoulder pain, arm pain, back pain, hand pain, leg pain, foot pain Skin: Other (Open wound base of great toe, right foot.); No: Rash, Lesions, Jaundice, Bruising Neurological: No: Weakness, Numbness, Incoordination, Change in speech, Confusion, Seizures, Other Allergies: Coded Allergies: Vancomycin (Verified Allergy, Unknown, 01/30/24) RASH AND ITCHING Medications Current Medications Medications Dose Ordered Sig/Mely Route Start Time Stop Time Status Last Admin Dose Admin Clindamycin Phosphate 50 ml @ 50 mls/hr Q8HR IV 05/31/24 06:00 Diagnostic Test (Pha) 1 strip ACHS 05/31/24 07:00 Insulin Human Regular ACHS SC 05/31/24 07:00 Dextrose 50 ml UD PRN IV 05/31/24 00:45 Sodium Chloride 10 ml Q8HR IV 05/31/24 06:00 Acetaminophen/ Hydrocodone Bitart 1 tab Q4HP PRN PO 05/31/24 00:45 Ondansetron HCl 4 mg Q4HP PRN IV 05/31/24 00:45 Docusate Sodium 100 mg BIDPRN PRN PO 05/31/24 00:45 Zinc Sulfate 220 mg DAILY PO 05/31/24 10:00 Ascorbic Acid 500 mg BID PO 05/31/24 10:00 Acetaminophen 650 mg Q6HP PRN PO 05/31/24 00:45 Clonidine HCl 0.1 mg Q4HP PRN PO 05/31/24 00:45 Aspirin 81 mg DAILY PO 05/31/24 10:00 Atorvastatin Calcium 40 mg HS PO 05/31/24 22:00 Exam Vital Signs Vital Signs Date Time Temp Pulse Resp B/P (MAP) Pulse Ox O2 Delivery O2 Flow Rate FiO2 05/31/24 01:00 78 18 146/59 (88) 98 05/31/24 00:30 Room Air* 0 21 05/31/24 00:30 99.1 99.1 General Appearance: Alert, Oriented X3, Cooperative, No acute distress HEENT: Atraumatic, PERRLA, EOMI, Mucous membr. moist/pink Respiratory: Clear to auscultation, Normal air movement Cardiovascular: Regular rate, Normal S1, Normal S2, No murmurs Abdominal: Normal bowel sounds, Soft, No tenderness, No hepatospenomegaly, No masses Extremities: No clubbing, No cyanosis, No edema, Normal pulses, Other (Right great toe swelling/tenderness) Skin: No rashes, No breakdown, No significant lesion Neuro: Normal gait, Normal speech, Strength at 5/5 X4 ext, Normal tone, Sensation intact, Cranial nerves 3-12 NL, Reflexes 2+ Psych/Mental Status: Mental status NL, Mood NL Labs/Xrays Labs Test 05/31/24 03:59 05/30/24 23:50 Range/Units White Blood Count 8.3 4.4-10.8 10^3/uL Red Blood Count 4.44 4.0-5.20 10^6/uL Hemoglobin 12.5 12.2-16.2 g/dL Hematocrit 36.9 36.0-46.0 % Mean Corpuscular Volume 83.1 80.0-100.0 fL Mean Corpuscular Hemoglobin 28.2 28.0-32.0 pg Mean Corpuscular Hemoglobin Concent 33.9 32.0-36.0 g/dL Red Cell Distribution Width 14.3 11.8-14.3 % Platelet Count 352 140-450 10^3/uL Mean Platelet Volume 6.9 6.9-10.8 fL Neutrophils (%) (Auto) 45.7 37.0-80.0 % Lymphocytes (%) (Auto) 45.1 10.0-50.0 % Monocytes (%) (Auto) 6.6 0.0-12.0 % Eosinophils (%) (Auto) 2.2 0.0-7.0 % Basophils (%) (Auto) 0.4 0.0-2.0 % Neutrophils # (Auto) 3.8 1.6-8.6 10 ^3/uL Lymphocytes # (Auto) 3.7 0.4-5.4 10 ^3/uL Monocytes # (Auto) 0.5 0-1.3 10 ^3/uL Eosinophils # (Auto) 0.2 0-0.8 10 ^3/uL Basophils # (Auto) 0 0-0.2 10 ^3/uL Nucleated Red Blood Cells 0.1 % Sodium Level 140 136-145 mmol/L Potassium Level 3.9 3.5-5.1 mmol/L Chloride Level 109 H 98-107 mmol/L Carbon Dioxide Level 26 20-31 mmol/L Anion Gap 5 5-15 Blood Urea Nitrogen 9 9-23 mg/dL Creatinine 0.83 0.550-1.02 mg/dL Glomerular Filtration Rate Calc 82 >90 mL/min BUN/Creatinine Ratio 10.8 10.0-20.0 Serum Glucose 152 H 74-106 mg/dL Calcium Level 9.1 8.7-10.4 mg/dL Total Bilirubin 0.3 0.2-1.0 mg/dL Aspartate Amino Transferase (AST) < 8 L 13-40 U/L Alanine Aminotransferase (ALT) < 9 7-40 U/L Alkaline Phosphatase 83 46-116 U/L Total Protein 6.7 5.7-8.2 g/dL Albumin 3.7 3.2-4.8 g/dL POC Glucose 61 L 70-106 mg/dl PATIENT: CALE SERRANO NACCT: [id number] UNIT: [id number] : 1965 LOC: ER ROOM / BED: / AGE / SEX: 58 / F ADM STATUS: REG ER SERVICE 30 ORDERING PHYSICIAN: RUDDY RODRIGUEZ MD PROCEDURE(s): RLDVT - RT Lower DVT REASON: rle swelling and pain ORDER NUMBER(s): [id number], ACCESSION NUMBER(s): [id number] Right lower extremity venous duplex Clinical History: rle swelling and pain Comparison: None Technique: Duplex Doppler evaluation of the deep venous system of the right lower extremity from the common femoral vein to the popliteal vein including color Doppler and spectral/pulsed waveform analysis was performed. Findings: The common femoral vein demonstrates appropriate compressibility and waveform variability. There is compressibility/patency of the great saphenous vein at the proximal thigh. The femoral vein demonstrates appropriate compressibility and waveform variability. The deep femoral vein demonstrates appropriate compressibility and waveform variability. The popliteal vein demonstrates appropriate compressibility and waveform variability. There is normal compressibility at the tibioperoneal trunk. Impression: No right femoropopliteal venous thrombosis. If clinical concern/symptoms persist or worsen, short-interval follow-up study is suggested. Multiple lymph nodes seen throughout the extremity with largest measuring 4.3 cm in the mid thigh region. ORDERING PHYSICIAN: RUDDY RODRIGUEZ MD PROCEDURE(s): RFOT2 - R FOOT 2 VIEW XRAY REASON: chronic wound ORDER NUMBER(s): [id number], ACCESSION NUMBER(s): [id number] CLINICAL INDICATION: chronic wound TECHNIQUE: XY R FOOT 2 VIEW XRAY Comparison: CT of the right foot January 30, 2024 FINDINGS/IMPRESSION: Chronic appearing erosions, subluxations, and deformities of the 1st, 2nd, and 3rd MTP joints. Unchanged soft tissue calcification of the distal right leg. Diffuse soft tissue edema. No definitive evidence of acute fracture. Assessment/Plan Assessment/Plan Diabetic foot ulcer Cellulitis of right lower extremity Plan 1. Admit to med surge unit 2. Breathing treatment 3. Pain control management 4. IV antibiotic management 5. Management of fluids and electrolytes 6. Consultation for hospitalist/wound care 7. Diagnostic test extremity venous study 8. DVT prophylaxis-on aspirin 9. Repeat labs CBC, CMP in a.m. 10. Home medication reviewed and reconciled 11. Continue with current medical management 12. Treatment plan discussed with patient and RN. Patient verbalized understanding. Plan discussed with: Patient, Other (RN) My Orders Orders - CECI PATEL DNP Procedure Category Date Status Time Clindamycin 600mg Iv PHA 05/31/24 In Process (Cleocin Iv) 06:00 Consistent DIET 05/31/24 Transmitted Carb(Ccho)Diabetes Breakfast Glucose Blood PHA 05/31/24 In Process (Accu-Chek Comfort 07:00 Insulin R (Human) PHA 05/31/24 In Process (Insulin R) 07:00 Dextrose 50% Syringe PHA 05/31/24 In Process 00:45 Allergies MELISSA 05/31/24 In Process 00:31 Code Status CODE 05/31/24 Transmitted 00:31 Sodium Chloride Lock PHA 05/31/24 In Process (Saline Lock Ns) 06:00 Oxygen Per Hour RT 05/31/24 Transmitted 00:31 Hydrocodone-Acet PHA 05/31/24 In Process 5/325mg Tab ([place] 00:45 Ondansetron Hcl PHA 05/31/24 In Process (Zofran) 00:45 Docusate Sodium PHA 05/31/24 In Process Capsule (Colace 00:45 Zinc Sulfate PHA 05/31/24 In Process 10:00 Ascorbic Acid Tablet PHA 05/31/24 In Process (Vitamin C Tablet) 10:00 Complete Blood Count LAB 06/01/24 Verified 04:00 Comprehensive LAB 06/01/24 Verified Metabolic Panel 04:00 Condition: Fair MELISSA 05/31/24 In Process 00:31 Acetaminophen Tablet PHA 05/31/24 In Process (Tylenol Tablet) 00:45 Bedrest With Bathroom MELISSA 05/31/24 In Process Privileg 00:31 Sequential [facility] 05/31/24 In Process Compression Device Clonidine Hcl Tablet PHA 05/31/24 In Process (Catapres Tablet) 00:45 Aspirin Tablet PHA 05/31/24 In Process 10:00 Atorvastatin (Lipitor) [facility] 05/31/24 In Process 22:00 Admit ADMIT 05/31/24 Verified 05:14 Nitroglycerin [facility] 05/31/24 Verified Sublingual (Ntrostat 05:15 Morphine Sulfate [facility] 05/31/24 Verified Injection 05:15 Notify Md Of Changes [facility] 05/31/24 Verified From Base 05:14 Emergency Dysrhythmia [facility] 05/31/24 Verified Protocol 05:14 Oxygen By Nasal RT 05/31/24 Verified Cannula 05:14 Problem List: (1) Diabetic foot ulcer (2) Cellulitis of right lower extremity Date of Service: May 31, 2024 Billing Provider: CECI PATEL DNP Common Visit Codes: 32879-[id number] INP/OBS CARE (HIGH) CECI PATEL DNP May 31, 2024 05:31
[2024-05-31] MEDS: SODIUM CHLOR 0.9% PF (SALINE LOCK) 10ML VIAL/SYR IV SCH (06:02)
[2024-05-31] MEDS: CLINDAMYCIN 600MG IV 50 ML IV SCH (06:04)
[2024-05-31] MEDS: InsuLIN REG 1unit/0.01ml Soln (100units/ml) SC SCH (06:43)
[2024-05-31] MEDS: ACCU-CHEK COMFORT CURVE STRIP VI SCH (06:43)
[2024-05-31 08:00] VITALS: PULSE 70; RESP 15; O2SAT 96
[2024-05-31] MEDS: ZINC SULFATE 220mg CAP or TAB PO SCH (10:00)
[2024-05-31] MEDS: ASCORBIC ACID 500 MG TAB PO SCH (10:07)
[2024-05-31] MEDS: ASPirin 81 mg TAB PO SCH (10:08)
[2024-05-31 17:11] VITALS: BP 144/74; PULSE 72; RESP 18; TEMP 98.1; O2SAT 94
[2024-05-31 17:13] VITALS: BP 144/76; PULSE 80; RESP 17; TEMP 98.3; O2SAT 95
[2024-05-31 20:00] VITALS: PULSE 86; RESP 20; O2SAT 100
[2024-05-31 21:00] VITALS: BP 148/83; PULSE 86; RESP 22; TEMP 98.9; O2SAT 100
[2024-05-31] MEDS: ATORVASTATIN 20 MG TAB PO SCH (21:36)
[2024-05-31] MEDS: ACETAMINOPHEN 325 MG TAB PO PRN (21:37)
[2024-06-01] VITALS (7 sets, daily range): BP systolic 123–154; BP diastolic 43–75; PULSE 67–81; RESP 16–20; TEMP 97.6–98.6; O2SAT 94–98
[2024-06-01 06:41] LABS: Basophils # (auto) 0 10 ^3/uL (0-0.2); Basophils % (auto) 0.6 % (0.0-2.0); Eosinophils # (auto) 0.2 10 ^3/uL (0-0.8); Eosinophils % (auto) 3.4 % (0.0-7.0); Hematocrit 39.3 % (36.0-46.0); Hemoglobin 13.3 g/dL (12.2-16.2); Lymphocytes % (auto) 51.3 % (10.0-50.0); Mean Corpuscular Hemoglobin 28.2 pg (28.0-32.0); Mean Corpuscular Hgb Conc. 33.8 g/dL (32.0-36.0); Mean Corpuscular Volume 83.5 fL (80.0-100.0); Monocytes # (auto) 0.4 10 ^3/uL (0-1.3); Monocytes % (auto) 6.4 % (0.0-12.0); Neutrophils # (auto) 2.3 10 ^3/uL (1.6-8.6); Neutrophils % (auto) 38.3 % (37.0-80.0); Nucleated Red Blood Cells % 0.4 %; Platelet Count (auto) 353 10^3/uL (140-450); White Blood Cell 5.9 10^3/uL (4.4-10.8)
[2024-06-01 07:02] LABS: Albumin 3.7 g/dL (3.2-4.8); Alkaline Phosphatase 93 U/L (46-116); Anion Gap 5 (5-15); Aspartate Aminotransferase < 8 U/L (13-40); BUN/Creatinine Ratio 13.6 (10.0-20.0); Blood Urea Nitrogen 11 mg/dL (9-23); Calcium 9.2 mg/dL (8.7-10.4); Carbon Dioxide 27 mmol/L (20-31); Chloride 109 mmol/L (98-107); Glucose 208 mg/dL (74-106); Potassium 4.3 mmol/L (3.5-5.1); Sodium 141 mmol/L (136-145)
[2024-06-01 07:03] LABS: Bilirubin, Total 0.3 mg/dL (0.2-1.0); Total Protein 6.6 g/dL (5.7-8.2)
[2024-06-01 07:07] LABS: Alanine Aminotransferase < 9 U/L (7-40)
--- NOTE | 2024-06-01 13:29 | DVHPN2 ---
Subjective The patient is seen and examined at bedside. Complain of leg pain. Reviewed: Care Plan, H&P, Labs, Medications, Previous Orders Changes from previous H/P or p: No Changes Eyes: No Pain, No Vision change, No Conjunctivae inflammation, No Eyelid inflammation, No Other, No Redness ENT: No Ear pain, No Ear discharge, No Nose pain, No Nose discharge, No Nose congestion, No Mouth pain, No Mouth swelling, No Throat pain, No Throat swelling, No Other Cardiovascular: No Chest Pain, No Palpitations, No Orthopnea, No Paroxysmal Noc. Dyspnea, No Edema, No Lt Headedness, No Other Respiratory: No Cough, No Dry, No Shortness of breath, No SOB with excertion, No Wheezing, No Hemoptysis, No Pleuritic Pain, No Sputum, No Other Gastrointestinal: No Nausea, No Vomiting, No Abdominal Pain, No Diarrhea, No Constipation, No Melena, No Hematochezia, No Other Genitourinary: No Dysuria, No Frequency, No Incontinence, No Hematuria, No Retention, No Other Musculoskeletal: other (Right lower leg swelling.); No neck pain, No shoulder pain, No arm pain, No back pain, No hand pain, No leg pain, No foot pain Skin: No Rash, No Lesions, No Jaundice, No Bruising; Other (Open wound base of great toe, right foot.) Objective Vitals Vital Signs Date Time Temp Pulse Resp B/P (MAP) Pulse Ox O2 Delivery O2 Flow Rate FiO2 06/01/24 09:00 97.6 69 18 141/60 (87) 96 97.6 06/01/24 08:00 Room Air* 0 21 Intake/Output Intake and Output 06/01/24 07:00 Intake Total 545 ml Output Total 450 ml Balance 95 ml Intake Oral 495 ml IV Total 50 ml Output Urine Total 450 ml # Bowel Movements 1 General Appearance: Alert, Oriented X3, Cooperative, No acute distress HEENT: Atraumatic, PERRLA, EOMI, Mucous membr. moist/pink Neck: Supple Lungs: Clear to auscultation, Normal air movement Cardiovascular: Regular rate, Normal S1, Normal S2, No murmurs, Gallops, Rubs Abdomen: Normal bowel sounds, Soft, No tenderness Extremities: Normal pulses, Other (Right foot ulcer, nonhealing) Neuro: Cranial nerves 3-12 NL Psych/Mental Status: Mental status NL Medications Current Medications Medications Dose Ordered Sig/Mely Route Start Time Stop Time Status Last Admin Dose Admin Clindamycin Phosphate 50 ml @ 50 mls/hr Q8HR IV 05/31/24 06:00 06/01/24 06:05 50 MLS/HR Diagnostic Test (Pha) 1 strip ACHS 05/31/24 07:00 06/01/24 11:36 1 STRIP Insulin Human Regular ACHS SC 05/31/24 07:00 06/01/24 11:36 6 UNITS Dextrose 50 ml UD PRN IV 05/31/24 00:45 Sodium Chloride 10 ml Q8HR IV 05/31/24 06:00 06/01/24 06:10 10 ML Acetaminophen/ Hydrocodone Bitart 1 tab Q4HP PRN PO 05/31/24 00:45 Ondansetron HCl 4 mg Q4HP PRN IV 05/31/24 00:45 Docusate Sodium 100 mg BIDPRN PRN PO 05/31/24 00:45 Zinc Sulfate 220 mg DAILY PO 05/31/24 10:00 06/01/24 08:40 220 MG Ascorbic Acid 500 mg BID PO 05/31/24 10:00 06/01/24 08:39 500 MG Acetaminophen 650 mg Q6HP PRN PO 05/31/24 00:45 05/31/24 21:37 650 MG Clonidine HCl 0.1 mg Q4HP PRN PO 05/31/24 00:45 Aspirin 81 mg DAILY PO 05/31/24 10:00 06/01/24 08:40 81 MG Atorvastatin Calcium 40 mg HS PO 05/31/24 22:00 05/31/24 21:36 40 MG Nitroglycerin 0.4 mg Q5MINP PRN SL 05/31/24 05:15 Morphine Sulfate 2 mg Q30M PRN IV 05/31/24 05:15 Insulin Glargine 25 units HS SC 06/01/24 22:00 UNV Laboratory Results Laboratory Tests 06/01/24 05:42 Chemistry Test 06/01/24 05:42 Albumin 3.7 g/dL (3.2-4.8) Calcium Level 9.2 mg/dL (8.7-10.4) Total Protein 6.6 g/dL (5.7-8.2) LFT Test 06/01/24 05:42 Alanine Aminotransferase (ALT) < 9 U/L (7-40) Alkaline Phosphatase 93 U/L (46-116) Aspartate Amino Transferase (AST) < 8 U/L (13-40) L Total Bilirubin 0.3 mg/dL (0.2-1.0) Microbiology Microbiology Date/Time Source Procedure Growth Status 05/31/24 11:20 Foot Right Gram Stain - Final Resulted 05/31/24 11:20 Foot Right Wound Culture - Preliminary Resulted Assessment/Plan Assessment/Plan Non healing diabetic foot ulcer Cellulitis of right lower extremity Diabetes type 2 uncontrolled Hypertension Hyperlipidemia Plan: Continuing current management. Continuing with IV antibiotic with clindamycin. I will increase sliding scale insulin to moderate scale and add Lantus 25 units subQ q.h.s.. Continuing hypertensive medication. I will consult wildlife biology technician. The patient wanted to go home however I explained to her that her nonhealing diabetic foot ulcer need to be treated with antibiotic and possible wound debridement. Plan discussed with: Patient, Other (RN) My Orders Orders - SHAN SAMAYOA MD Procedure Category Date Status Time Insulin Lantus PHA 06/01/24 Logged (Glargine) (Lantus) 22:00 Date of Service: Jun 01, 2024 Billing Provider: SHAN SAMAYOA MD Common Visit Codes: [id number] INP/OBS CARE(HIGH) SHAN SAMAYOA MD Jun 01, 2024 13:29
[2024-06-01] MEDS ORDERED: DEXTROSE (50%) 50ML SYRG IV PRN (13:45)
[2024-06-01] MEDS: InsuLIN REG 1unit/0.01ml Soln (100units/ml) SC SCH ×2 (17:06→22:01)
[2024-06-01] MEDS: ACCU-CHEK COMFORT CURVE STRIP VI SCH (17:06)
[2024-06-01] MEDS: INSULIN LANTUS (GLARGINE) 1 /0.01ml (100units/ml) SC SCH (22:01)
[2024-06-02] VITALS (7 sets, daily range): BP systolic 122–147; BP diastolic 61–86; PULSE 64–79; RESP 16–20; TEMP 98.4–98.8; O2SAT 95–98
[2024-06-02 09:01] LABS: Basophils # (auto) 0 10 ^3/uL (0-0.2); Basophils % (auto) 0.6 % (0.0-2.0); Eosinophils # (auto) 0.1 10 ^3/uL (0-0.8); Hematocrit 43.3 % (36.0-46.0); Hemoglobin 14.4 g/dL (12.2-16.2); Lymphocytes # (auto) 2.8 10 ^3/uL (0.4-5.4); Lymphocytes % (auto) 39.5 % (10.0-50.0); Mean Corpuscular Hemoglobin 27.8 pg (28.0-32.0); Mean Corpuscular Hgb Conc. 33.2 g/dL (32.0-36.0); Mean Corpuscular Volume 83.8 fL (80.0-100.0); Monocytes # (auto) 0.4 10 ^3/uL (0-1.3); Monocytes % (auto) 6.3 % (0.0-12.0); Neutrophils # (auto) 3.7 10 ^3/uL (1.6-8.6); Neutrophils % (auto) 51.6 % (37.0-80.0); Nucleated Red Blood Cells % 0.1 %; Platelet Count (auto) 404 10^3/uL (140-450); Red Blood Cells 5.17 10^6/uL (4.0-5.20); Red Cell Distribution Width 14.2 % (11.8-14.3); White Blood Cell 7.1 10^3/uL (4.4-10.8)
[2024-06-02 09:08] LABS: Chloride 104 mmol/L (98-107); Potassium 4.5 mmol/L (3.5-5.1); Sodium 138 mmol/L (136-145)
[2024-06-02 09:09] LABS: Anion Gap 5 (5-15); Carbon Dioxide 29 mmol/L (20-31)
[2024-06-02 09:10] LABS: Calcium 9.7 mg/dL (8.7-10.4)
--- NOTE | 2024-06-02 09:12 | DVHINCON2 ---
Date Seen: Jun 02, 2024 Reason for Consultation Right foot wound History of Present Illness The patient is a 58-year-old female with past medical history of DM, hyperlipidemia, and hypertension who presented to [facility] ED for evaluation of right lower extremity swelling. Patient has diabetic right foot ulcer status post debridement of a sore of the great to recently, noted open wound of the great toe for the past week with swellings, burning pain, getting worse that prompted this visit. Patient was seen by wound care nurse and advised to come to the ER. Patient was seen and evaluated in the ED, laboratory data shows WBC 9.4, platelets 377, sodium 140, potassium 3.9, BUN 7, creatinine 0.85, glucose 73, blood pressure 146/59, heart rate 76, temperature 99.1 F, O2 saturation 98% on room air. Extremity venous study showed no right femoropopliteal venous thrombosis. Patient was started on IV antibiotic regimen clindamycin, please see medication orders section in the computer. On my assessment, patient denies chest pain, no headache, no dizziness, no diaphoresis, no shortness of breath, no nausea, no vomiting, no fever, no chills. Patient was admitted for further evaluation and medical management. Past Medical History See HPI Past Surgical History See H&P Family History: FH: stomach cancer G8 FATHER Malignant neoplasm of endometrium G8 MOTHER Allergies: Coded Allergies: Vancomycin (Verified Allergy, Unknown, 01/30/24) RASH AND ITCHING Home Meds Active Scripts Levofloxacin (Levaquin) 500 Mg Tab, 500 MG IV DAILY for 10 Days, #10 INJ Please dispense in an IV formulary for the patient to self dispense through her PICC line Prov:MICHAEL JEAN PAC 12/01/22 Reported Medications Insulin Aspart Protamine & Asp (Insulin Aspart Protamine/ (70-30) 100 Unit/ml) 1 Inj Inj, 16 UNITS SC QPM, INJ 09/12/19 Insulin Aspart Protamine & Asp (Novolog Mix 70/30 Prefill (70-30) 100 Unit/ml) 1 Inj Inj, 56 UNITS SC QAM, INJ 09/12/19 Metformin Hydrochloride (Metformin Hcl) 850 Mg Tab 09/12/19 Aspirin (EQ ASPIRIN ADULT LOW DOSE) 81 Mg Tab 09/12/19 Atorvastatin Calcium (ATORVASTATIN CALCIUM) 40 Mg Tab 09/12/19 Lisinopril (Lisinopril) 10 Mg Tab 2/14/20 Current Medications Current Medications Medications (Trade) Dose Ordered Sig/Mely Route PRN Reason Start Time Stop Time Status Last Admin Insulin Glargine (Lantus) 25 units HS SC 06/01/24 22:00 06/01/24 22:01 Diagnostic Test (Pha) (Accu-Chek Comfort Curve T) 1 strip ACHS 06/01/24 17:00 06/02/24 06:39 Insulin Human Regular (InsuLIN R) HS SC 06/01/24 22:00 06/01/24 22:01 Insulin Human Regular (InsuLIN R) AC SC 06/01/24 17:00 06/02/24 06:42 Dextrose 50 ml UD PRN IV Blood Sugar LESS THAN 60 06/01/24 13:45 Vital Signs Vital Signs Date Time Temp Pulse Resp B/P (MAP) Pulse Ox O2 Delivery O2 Flow Rate FiO2 06/02/24 08:42 98.5 70 17 123/67 (85) 97 98.5 06/01/24 20:00 Room Air* 0 21 Physical Exam DERMATOLOGIC EXAM: - Skin is dry and cool to the touch dry bilaterally. - Nails 1-5 of the bilateral foot are thickened, discolored, dystrophic, and tender to palpate with subungual debris - Hair loss noted to bilateral feet Wound #1: Location: Right plantar foot Measurements: Length 4 cm x width 2 cm x depth 1 cm. Wound margins: Hyperkeratotic. Wound base: Full thickness. General Appearance: Healthy and bleeding. Probes to Bone: Yes Purulent drainage: S Serous drainage: No Erythema: Periwound VASCULAR EXAM: - DP and PT pulses are palpable bilaterally. - DIRECT SUPPORT SPECIALIST is brisk to all digits. - Feet are cool to touch compared to lower legs bilaterally. NEUROLOGIC EXAM: - Normal light touch sensation to the superficial peroneal, deep peroneal, sural , saphenous, and tibial nerve branches. - Protective sensation is diminished as tested with a 5.07 10g Milfay-Jesus bilaterally. MUSCULOSKELETAL EXAM: - No gross deformities - Muscle strength is 5/5 and active motion is pain-free and symmetrical bilat erally - No pain or crepitation with passive range of motion bilaterally to all major pedal joints Labs/Diagnostic Data Labs Test 06/02/24 08:45 06/02/24 05:48 06/01/24 05:42 Range/Units White Blood Count 7.1 4.4-10.8 10^3/uL Red Blood Count 5.17 4.0-5.20 10^6/uL Hemoglobin 14.4 12.2-16.2 g/dL Hematocrit 43.3 # 36.0-46.0 % Mean Corpuscular Volume 83.8 80.0-100.0 fL Mean Corpuscular Hemoglobin 27.8 L 28.0-32.0 pg Mean Corpuscular Hemoglobin Concent 33.2 32.0-36.0 g/dL Red Cell Distribution Width 14.2 11.8-14.3 % Platelet Count 404 140-450 10^3/uL Mean Platelet Volume 6.9 6.9-10.8 fL Neutrophils (%) (Auto) 51.6 37.0-80.0 % Lymphocytes (%) (Auto) 39.5 10.0-50.0 % Monocytes (%) (Auto) 6.3 0.0-12.0 % Eosinophils (%) (Auto) 2.0 0.0-7.0 % Basophils (%) (Auto) 0.6 0.0-2.0 % Neutrophils # (Auto) 3.7 1.6-8.6 10 ^3/uL Lymphocytes # (Auto) 2.8 0.4-5.4 10 ^3/uL Monocytes # (Auto) 0.4 0-1.3 10 ^3/uL Eosinophils # (Auto) 0.1 0-0.8 10 ^3/uL Basophils # (Auto) 0 0-0.2 10 ^3/uL Nucleated Red Blood Cells 0.1 % POC Glucose 137 H 70-106 mg/dl Total Bilirubin 0.3 0.2-1.0 mg/dL Aspartate Amino Transferase (AST) < 8 L 13-40 U/L Alanine Aminotransferase (ALT) < 9 7-40 U/L Alkaline Phosphatase 93 46-116 U/L Total Protein 6.6 5.7-8.2 g/dL Albumin 3.7 3.2-4.8 g/dL Microbiology Date/Time Source Procedure Growth Status 05/31/24 11:20 Foot Right Gram Stain - Final Resulted 05/31/24 11:20 Wound Culture - Preliminary Proteus mirabilis Resulted Problems(with codes): (1) Cellulitis (2) Diabetic foot ulcer associated with type 2 diabetes mellitus, with fat layer exposed (3) Acute bronchitis (4) Sepsis (5) UTI (urinary tract infection) (6) Osteomyelitis (7) Allergic reaction caused by a drug (8) Ulcer of left foot (9) Gangrene of left foot (10) Cellulitis of right lower extremity (11) Diabetic foot ulcer Plan/Recommendation ASSESSMENT: Patient is a 58-year-old female seen on floor for a right foot wound PLAN: - The patients chart was reviewed, clinical findings were discussed with the juan francisco blanca, the etiologies of the conditions were discussed in detail, and a treatment plan was agreed to at this time, with both oral and written instructions provided. - reviewed x-rays do not see any soft tissue emphysema - patient says the wound has been there for almost 15 years and there is some destruction of the metatarsal heads - recommend that we get an MRI to rule out osteomyelitis or any abscess formation - depending on the MRI results would recommend we take her to the OR for I and D possible met head amputation if there is osteomyelitis - continue antibiotics - limit weight-bearing on that foot All questions were answered and concerns addressed to the patient's satisfaction. The patient was given the phone number to the clinic and was told how to make contact with the clinic should any concerns or questions arise. Patient understands that if any questions or concerns arise prior to the next appointment, we should be contacted immediately. FOLLOW-UP: Patient will follow up with me in 1 week for continued wound care Plan discussed with: Patient Date of Service: Jun 02, 2024 Billing Provider: KELLY CASTELLANOS DPM Common Visit Codes: [id number] INP/OBS CARE (MOD) KELLY CASTELLANOS DPM Jun 02, 2024 09:12
[2024-06-02 09:14] LABS: BUN/Creatinine Ratio 11.8 (10.0-20.0); Blood Urea Nitrogen 10 mg/dL (9-23); Glucose 213 mg/dL (74-106)
[2024-06-02] MEDS ORDERED: levoFLOXacin 500MG 100 ML IV ONE (11:15)
--- NOTE | 2024-06-02 11:26 | DVHPN2 ---
Reviewed: Care Plan, H&P, Labs, Medications, Previous Orders Changes from previous H/P or p: No Changes Eyes: No Pain, No Vision change, No Conjunctivae inflammation, No Eyelid inflammation, No Other, No Redness ENT: No Ear pain, No Ear discharge, No Nose pain, No Nose discharge, No Nose congestion, No Mouth pain, No Mouth swelling, No Throat pain, No Throat swelling, No Other Cardiovascular: No Chest Pain, No Palpitations, No Orthopnea, No Paroxysmal Noc. Dyspnea, No Edema, No Lt Headedness, No Other Respiratory: No Cough, No Dry, No Shortness of breath, No SOB with excertion, No Wheezing, No Hemoptysis, No Pleuritic Pain, No Sputum, No Other Gastrointestinal: No Nausea, No Vomiting, No Abdominal Pain, No Diarrhea, No Constipation, No Melena, No Hematochezia, No Other Genitourinary: No Dysuria, No Frequency, No Incontinence, No Hematuria, No Retention, No Other Musculoskeletal: other (Right lower leg swelling.); No neck pain, No shoulder pain, No arm pain, No back pain, No hand pain, No leg pain, No foot pain Skin: No Rash, No Lesions, No Jaundice, No Bruising; Other (Open wound base of great toe, right foot.) Objective Vitals Vital Signs Date Time Temp Pulse Resp B/P (MAP) Pulse Ox O2 Delivery O2 Flow Rate FiO2 06/02/24 08:42 98.5 70 17 123/67 (85) 97 98.5 06/02/24 08:00 Room Air* 0 21 Intake/Output Intake and Output 06/02/24 07:00 Intake Total 2720 ml Balance 2720 ml Intake Oral 2620 ml IV Total 100 ml # Voids 7 General Appearance: Alert, Oriented X3, Cooperative, No acute distress HEENT: Atraumatic, PERRLA, EOMI, Mucous membr. moist/pink Neck: Supple Lungs: Clear to auscultation, Normal air movement Cardiovascular: Regular rate, Normal S1, Normal S2, No murmurs, Gallops, Rubs Abdomen: Normal bowel sounds, Soft, No tenderness Extremities: Normal pulses, Other (Right foot ulcer, nonhealing) Neuro: Cranial nerves 3-12 NL Psych/Mental Status: Mental status NL Medications Current Medications Medications Dose Ordered Sig/Mely Route Start Time Stop Time Status Last Admin Dose Admin Sodium Chloride 10 ml Q8HR IV 05/31/24 06:00 06/02/24 06:39 10 ML Acetaminophen/ Hydrocodone Bitart 1 tab Q4HP PRN PO 05/31/24 00:45 Ondansetron HCl 4 mg Q4HP PRN IV 05/31/24 00:45 Docusate Sodium 100 mg BIDPRN PRN PO 05/31/24 00:45 Zinc Sulfate 220 mg DAILY PO 05/31/24 10:00 06/02/24 08:51 220 MG Ascorbic Acid 500 mg BID PO 05/31/24 10:00 06/02/24 08:51 500 MG Acetaminophen 650 mg Q6HP PRN PO 05/31/24 00:45 05/31/24 21:37 650 MG Clonidine HCl 0.1 mg Q4HP PRN PO 05/31/24 00:45 Aspirin 81 mg DAILY PO 05/31/24 10:00 06/02/24 08:51 81 MG Atorvastatin Calcium 40 mg HS PO 05/31/24 22:00 06/01/24 21:55 40 MG Nitroglycerin 0.4 mg Q5MINP PRN SL 05/31/24 05:15 Morphine Sulfate 2 mg Q30M PRN IV 05/31/24 05:15 Insulin Glargine 25 units HS SC 06/01/24 22:00 06/01/24 22:01 25 UNITS Diagnostic Test (Pha) 1 strip ACHS 06/01/24 17:00 06/02/24 06:39 1 STRIP Insulin Human Regular HS SC 06/01/24 22:00 06/01/24 22:01 8 UNITS Insulin Human Regular AC SC 06/01/24 17:00 06/02/24 06:42 2 UNITS Dextrose 50 ml UD PRN IV 06/01/24 13:45 Levofloxacin/ Dextrose 100 ml @ 100 mls/hr DAILY IV 06/03/24 10:00 UNV Laboratory Results Laboratory Tests 06/02/24 08:45 Chemistry Test 06/02/24 08:45 Calcium Level 9.7 mg/dL (8.7-10.4) Microbiology Microbiology Date/Time Source Procedure Growth Status 05/31/24 11:20 Foot Right Gram Stain - Final Resulted 05/31/24 11:20 Wound Culture - Preliminary Proteus mirabilis Resulted Labs and/or images reviewed: Labs reviewed by me, Image(s) reviewed by me Assessment/Plan Assessment/Plan Sepsis secondary to cellulitis of the right foot Cellulitis of the right foot and lower extremity: MRI right foot pending, podiatric consult by Dr. Soto appreciated Diabetic foot ulcer right foot, wound cultures growing Proteus mirabilis: DC clindamycin start Levaquin Bronchitis UTI Osteomyelitis Gangrene of left foot Uncontrolled diabetes Noncompliance Awaiting MRI right foot result Plan discussed with: Patient My Orders Orders - OMAR ADDISON MD Procedure Category Date Status Time Levofloxacin 500mg PHA 06/03/24 Logged (Levaquin 500mg/ 100m 10:00 Levofloxacin 500mg PHA 06/02/24 Logged (Levaquin 500mg/ 100m 11:15 Date of Service: Jun 02, 2024 Billing Provider: OMAR ADDISON MD Common Visit Codes: [id number] INP/OBS CARE(HIGH) OMAR ADDISON MD Jun 02, 2024 11:26
--- NOTE | 2024-06-02 11:42 | DVH ---
CLINICAL INFORMATION: 58 years old, Female; open wound in the plantar aspect of the right forefoot. Infection. Rule out osteomyelitis. TECHNIQUE: Multi sequence multi planar MRI images of the right midfoot and forefoot were obtained wit hout IV contrast. COMPARISON: Radiographs dated 05/30/2024. CT dated 01/31/2024. FINDINGS: Motion artifact limits evaluation. Wound at the plantar aspect of the forefoot near the lev el of the 2nd MTP joint measuring up to 4 cm in greatest dimension. There are adjacent soft tissue i nflammatory changes, likely cellulitis. Ill-defined fluid extending adjacent to the 2nd MTP joint wit h prominent marrow edema involving most of the proximal phalanx of the 2nd digit with erosive change at the base, suspicious for osteomyelitis. Marrow edema and cortical deformity in the distal aspect o f the 2nd metatarsal, likely sequela of osteomyelitis. Dislocation of the 2nd tarsometatarsal joint a lso noted. There are areas of prominent sclerosis in the distal aspect of the 2nd metatarsal. There is T2 hyperintense signal extending more proximally in the 2nd metatarsal to the base. There is mar ked sclerosis and cortical destruction at the distal aspects of the 1st and 3rd metatarsals, grossly similar in appearance compared to the prior CT exam, with dislocation of the 1st and 3rd MTP joints. There is some T2 hyperintense and T1 hypointense signal at the base of the proximal phalanx of the gr eat toe, suspected acute osteomyelitis. IMPRESSION: 1. Wound at the plantar aspect of the forefoot centered near the 2nd MTP joint with adjacent soft tis kitty inflammatory changes, likely cellulitis and possible phlegmon extending adjacent to the 2nd MTP j oint. Limited evaluation for abscess on noncontrast enhanced exam. T2 hyperintense signal extending m ore proximally to the base of the 2nd metatarsal may be reactive marrow signal changes, although oste omyelitis not excluded. 2. Suspected osteomyelitis involving the distal aspect of the 2nd metatarsal and most of the 2nd digi t proximal phalanx. 3. Suspected osteomyelitis involving the base of the proximal phalanx of the great toe. 4. Dislocations at the 1st through 3rd MTP joints with adjacent cortical destructive changes, also se en on the prior CT exam. 5. Additional findings as detailed above.
[2024-06-02] MEDS: levoFLOXacin 250MG 50 ML IV ONE ×2 (12:04→14:30)
[2024-06-03 05:00] VITALS: BP 116/65; PULSE 75; RESP 18; TEMP 98.3; O2SAT 96
[2024-06-03] MEDS: levoFLOXacin 250MG 50 ML IV SCH (08:23)
[2024-06-03 09:00] VITALS: BP 118/59; PULSE 79; RESP 18; TEMP 98.8; O2SAT 97
--- NOTE | 2024-06-03 09:47 | DVHPN2 ---
Reviewed: Care Plan, H&P, Labs, Medications, Previous Orders Changes from previous H/P or p: No Changes Eyes: No Pain, No Vision change, No Conjunctivae inflammation, No Eyelid inflammation, No Other, No Redness ENT: No Ear pain, No Ear discharge, No Nose pain, No Nose discharge, No Nose congestion, No Mouth pain, No Mouth swelling, No Throat pain, No Throat swelling, No Other Cardiovascular: No Chest Pain, No Palpitations, No Orthopnea, No Paroxysmal Noc. Dyspnea, No Edema, No Lt Headedness, No Other Respiratory: No Cough, No Dry, No Shortness of breath, No SOB with excertion, No Wheezing, No Hemoptysis, No Pleuritic Pain, No Sputum, No Other Gastrointestinal: No Nausea, No Vomiting, No Abdominal Pain, No Diarrhea, No Constipation, No Melena, No Hematochezia, No Other Genitourinary: No Dysuria, No Frequency, No Incontinence, No Hematuria, No Retention, No Other Musculoskeletal: other (Right lower leg swelling.); No neck pain, No shoulder pain, No arm pain, No back pain, No hand pain, No leg pain, No foot pain Skin: No Rash, No Lesions, No Jaundice, No Bruising; Other (Open wound base of great toe, right foot.) Objective Vitals Vital Signs Date Time Temp Pulse Resp B/P (MAP) Pulse Ox O2 Delivery O2 Flow Rate FiO2 06/03/24 08:00 Room Air* 0 21 06/03/24 05:00 98.3 75 18 116/65 (82) 96 98.3 Intake/Output Intake and Output 06/03/24 07:00 Intake Total 3000 ml Output Total 450 ml Balance 2550 ml Intake Oral 2950 ml IV Total 50 ml Output Urine Total 450 ml # Voids 5 # Bowel Movements 1 General Appearance: Alert, Oriented X3, Cooperative, No acute distress HEENT: Atraumatic, PERRLA, EOMI, Mucous membr. moist/pink Neck: Supple Lungs: Clear to auscultation, Normal air movement Cardiovascular: Regular rate, Normal S1, Normal S2, No murmurs, Gallops, Rubs Abdomen: Normal bowel sounds, Soft, No tenderness Extremities: Normal pulses, Other (Right foot ulcer, nonhealing) Neuro: Cranial nerves 3-12 NL Psych/Mental Status: Mental status NL Medications Current Medications Medications Dose Ordered Sig/Mely Route Start Time Stop Time Status Last Admin Dose Admin Sodium Chloride 10 ml Q8HR IV 05/31/24 06:00 06/03/24 06:16 10 ML Acetaminophen/ Hydrocodone Bitart 1 tab Q4HP PRN PO 05/31/24 00:45 Ondansetron HCl 4 mg Q4HP PRN IV 05/31/24 00:45 Docusate Sodium 100 mg BIDPRN PRN PO 05/31/24 00:45 Zinc Sulfate 220 mg DAILY PO 05/31/24 10:00 06/03/24 08:23 220 MG Ascorbic Acid 500 mg BID PO 05/31/24 10:00 06/03/24 08:22 500 MG Acetaminophen 650 mg Q6HP PRN PO 05/31/24 00:45 05/31/24 21:37 650 MG Clonidine HCl 0.1 mg Q4HP PRN PO 05/31/24 00:45 Aspirin 81 mg DAILY PO 05/31/24 10:00 06/03/24 08:23 81 MG Atorvastatin Calcium 40 mg HS PO 05/31/24 22:00 06/02/24 22:24 40 MG Nitroglycerin 0.4 mg Q5MINP PRN SL 05/31/24 05:15 Morphine Sulfate 2 mg Q30M PRN IV 05/31/24 05:15 Insulin Glargine 25 units HS SC 06/01/24 22:00 06/02/24 22:00 25 UNITS Diagnostic Test (Pha) 1 strip ACHS 06/01/24 17:00 06/03/24 06:32 1 STRIP Insulin Human Regular HS SC 06/01/24 22:00 06/02/24 22:55 6 UNITS Insulin Human Regular AC SC 06/01/24 17:00 06/02/24 22:32 6 UNITS Dextrose 50 ml UD PRN IV 06/01/24 13:45 Levofloxacin 50 ml @ 50 mls/hr DAILY@1000,1100 IV 06/03/24 10:00 06/03/24 08:23 50 MLS/HR Laboratory Results Laboratory Tests 06/02/24 08:45 Microbiology Microbiology Date/Time Source Procedure Growth Status 05/31/24 11:20 Foot Right Gram Stain - Final Resulted 05/31/24 11:20 Wound Culture - Preliminary Proteus mirabilis Resulted Labs and/or images reviewed: Labs reviewed by me, Image(s) reviewed by me Assessment/Plan Assessment/Plan Sepsis secondary to cellulitis of the right foot Acute osteomyelitis right 2nd metatarsal: Levaquin 500 mg IV daily for six weeks through PICC line Cellulitis of the right foot and lower extremity: MRI right foot shows osteomyelitis right 2nd metatarsal, podiatric consult by Dr. 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
[2024-06-03] MEDS ORDERED: levoFLOXacin 500MG 100 ML IV SCH (10:00)
--- NOTE | 2024-06-03 12:38 | DVHPN2 ---
Subjective The patient is a 58-year-old female with past medical history of DM, hyperlipidemia, and hypertension who presented to [facility] ED for evaluation of right lower extremity swelling. Patient has diabetic right foot ulcer status post debridement of a sore of the great to recently, noted open wound of the great toe for the past week with swellings, burning pain, getting worse that prompted this visit. Patient was seen by wound care nurse and advised to come to the ER. Patient was seen and evaluated in the ED, laboratory data shows WBC 9.4, platelets 377, sodium 140, potassium 3.9, BUN 7, creatinine 0.85, glucose 73, blood pressure 146/59, heart rate 76, temperature 99.1 F, O2 saturation 98% on room air. Extremity venous study showed no right femoropopliteal venous thrombosis. Patient was started on IV antibiotic regimen clindamycin, please see medication orders section in the computer. On my assessment, patient denies chest pain, no headache, no dizziness, no diaphoresis, no shortness of breath, no nausea, no vomiting, no fever, no chills. Patient was admitted for further evaluation and medical management. Reviewed: Care Plan, H&P, Labs, Medications, Previous Orders Changes from previous H/P or p: No Changes Eyes: No Pain, No Vision change, No Conjunctivae inflammation, No Eyelid inflammation, No Other, No Redness ENT: No Ear pain, No Ear discharge, No Nose pain, No Nose discharge, No Nose congestion, No Mouth pain, No Mouth swelling, No Throat pain, No Throat swelling, No Other Cardiovascular: No Chest Pain, No Palpitations, No Orthopnea, No Paroxysmal Noc. Dyspnea, No Edema, No Lt Headedness, No Other Respiratory: No Cough, No Dry, No Shortness of breath, No SOB with excertion, No Wheezing, No Hemoptysis, No Pleuritic Pain, No Sputum, No Other Gastrointestinal: No Nausea, No Vomiting, No Abdominal Pain, No Diarrhea, No Constipation, No Melena, No Hematochezia, No Other Genitourinary: No Dysuria, No Frequency, No Incontinence, No Hematuria, No Retention, No Other Musculoskeletal: other (Right lower leg swelling.); No neck pain, No shoulder pain, No arm pain, No back pain, No hand pain, No leg pain, No foot pain Skin: No Rash, No Lesions, No Jaundice, No Bruising; Other (Open wound base of great toe, right foot.) Objective Vitals Vital Signs Date Time Temp Pulse Resp B/P (MAP) Pulse Ox O2 Delivery O2 Flow Rate FiO2 06/03/24 09:00 98.8 79 18 118/59 (78) 97 98.8 06/03/24 08:00 Room Air* 0 21 Intake/Output Intake and Output 06/03/24 07:00 Intake Total 3000 ml Output Total 450 ml Balance 2550 ml Intake Oral 2950 ml IV Total 50 ml Output Urine Total 450 ml # Voids 5 # Bowel Movements 1 Exam DERMATOLOGIC EXAM: - Skin is dry and cool to the touch dry bilaterally. - Nails 1-5 of the bilateral foot are thickened, discolored, dystrophic, and tender to palpate with subungual debris - Hair loss noted to bilateral feet Wound #1: Location: Right plantar foot Measurements: Length 4 cm x width 2 cm x depth 1 cm. Wound margins: Hyperkeratotic. Wound base: Full thickness. General Appearance: Healthy and bleeding. Probes to Bone: Yes Purulent drainage: S Serous drainage: No Erythema: Periwound VASCULAR EXAM: - DP and PT pulses are palpable bilaterally. - ROUTE AIDE is brisk to all digits. - Feet are cool to touch compared to lower legs bilaterally. NEUROLOGIC EXAM: - Normal light touch sensation to the superficial peroneal, deep peroneal, sural, saphenous, and tibial nerve branches. - Protective sensation is diminished as tested with a 5.07 10g [place]-Jesus bilaterally. MUSCULOSKELETAL EXAM: - No gross deformities - Muscle strength is 5/5 and active motion is pain-free and symmetrical bilaterally - No pain or crepitation with passive range of motion bilaterally to all major pedal joints General Appearance: Alert, Oriented X3, Cooperative, No acute distress HEENT: Atraumatic, PERRLA, EOMI, Mucous membr. moist/pink Neck: Supple Lungs: Clear to auscultation, Normal air movement Cardiovascular: Regular rate, Normal S1, Normal S2, No murmurs, Gallops, Rubs Abdomen: Normal bowel sounds, Soft, No tenderness Extremities: Normal pulses, Other (Right foot ulcer, nonhealing) Neuro: Cranial nerves 3-12 NL Psych/Mental Status: Mental status NL Medications Current Medications Medications Dose Ordered Sig/Mely Route Start Time Stop Time Status Last Admin Dose Admin Sodium Chloride 10 ml Q8HR IV 05/31/24 06:00 06/03/24 06:16 10 ML Acetaminophen/ Hydrocodone Bitart 1 tab Q4HP PRN PO 05/31/24 00:45 Ondansetron HCl 4 mg Q4HP PRN IV 05/31/24 00:45 Docusate Sodium 100 mg BIDPRN PRN PO 05/31/24 00:45 Zinc Sulfate 220 mg DAILY PO 05/31/24 10:00 06/03/24 08:23 220 MG Ascorbic Acid 500 mg BID PO 05/31/24 10:00 06/03/24 08:22 500 MG Acetaminophen 650 mg Q6HP PRN PO 05/31/24 00:45 05/31/24 21:37 650 MG Clonidine HCl 0.1 mg Q4HP PRN PO 05/31/24 00:45 Aspirin 81 mg DAILY PO 05/31/24 10:00 06/03/24 08:23 81 MG Atorvastatin Calcium 40 mg HS PO 05/31/24 22:00 06/02/24 22:24 40 MG Nitroglycerin 0.4 mg Q5MINP PRN SL 05/31/24 05:15 Morphine Sulfate 2 mg Q30M PRN IV 05/31/24 05:15 Insulin Glargine 25 units HS SC 06/01/24 22:00 06/02/24 22:00 25 UNITS Diagnostic Test (Pha) 1 strip ACHS 06/01/24 17:00 06/03/24 11:32 1 STRIP Insulin Human Regular HS SC 06/01/24 22:00 06/02/24 22:55 6 UNITS Insulin Human Regular AC SC 06/01/24 17:00 06/03/24 11:32 12 UNITS Dextrose 50 ml UD PRN IV 06/01/24 13:45 Levofloxacin 50 ml @ 50 mls/hr DAILY@1000,1100 IV 06/03/24 10:00 06/03/24 09:58 50 MLS/HR Laboratory Results Laboratory Tests 06/02/24 08:45 Microbiology Microbiology Date/Time Source Procedure Growth Status 05/31/24 11:20 Foot Right Gram Stain - Final Complete 05/31/24 11:20 Wound Culture - Final Proteus mirabilis Enterococcus faecalis Complete Assessment/Plan Assessment/Plan ASSESSMENT: Patient is a 58-year-old female seen on floor for a right foot wound PLAN: - The patients chart was reviewed, clinical findings were discussed with the patient, the etiologies of the conditions were discussed in detail, and a treatment plan was agreed to at this time, with both oral and written instructions provided. - reviewed MRI which did show osteomyelitis of the 2nd metatarsal as well as concern in the 1st proximal phalanx and dislocation of the 3rd - Discussed what but patient my recommendation is to perform I&D with amputation of the 2nd possibly 1st and 3rd metatarsals - discussed that we would keep the toes but the surgical operation would offload and decrease pressure which would allow the plantar wound to heal - patient to be NPO at midnight - we will obtain cultures All questions were answered and concerns addressed to the patient's satisfaction. The patient was given the phone number to the clinic and was told how to make contact with the clinic should any concerns or questions arise. Patient understands that if any questions or concerns arise prior to the next appointment, we should be contacted immediately. FOLLOW-UP: Follow while inpatient Plan discussed with: Patient Problem List: (1) Cellulitis of right lower extremity (2) Diabetic foot ulcer (3) Cellulitis (4) Acute bronchitis (5) Sepsis (6) UTI (urinary tract infection) (7) Osteomyelitis (8) Allergic reaction caused by a drug (9) Ulcer of left foot (10) Diabetic foot ulcer associated with type 2 diabetes mellitus, with fat layer exposed (11) Gangrene of left foot Date of Service: Jun 03, 2024 Billing Provider: KELLY CASTELLANOS DPM Common Visit Codes: [id number] INP/OBS CARE(MOD) KELLY CASTELLANOS DPM Jun 03, 2024 12:38
[2024-06-03 13:00] VITALS: BP 134/69; PULSE 70; RESP 17; TEMP 98.4; O2SAT 93
[2024-06-03 14:23] LABS: COVID19 ANTIGEN SOFIA FIA NEGATIVE (NEGATIVE)
[2024-06-03 15:23] LABS: INR 1.08 (0.9-1.15); Partial Thromboplastin Time 24.5 SEC (24.5-34.5); Prothrombin Time 11.4 sec (9.3-11.8)
[2024-06-03 17:00] VITALS: BP 124/60; PULSE 67; RESP 17; TEMP 99; O2SAT 95
--- NOTE | 2024-06-03 18:16 | MEDREC ---
[facility] Intervention Section I [facility] Intervention: Review courses of therapy (PLEASE CONSIDER REVIEWING COURSE OF THERAPY ACCORDING TO CULTURE RESULTS ) ADRIAN VO PHARMACIST Jun 03, 2024 18:16
[2024-06-03 20:00] VITALS: PULSE 73; O2SAT 96
[2024-06-03 21:00] VITALS: BP 113/59; PULSE 73; RESP 17; TEMP 98.9; O2SAT 96
[2024-06-03] MEDS: SODIUM CHLOR 0.9% PF (SALINE LOCK) 10ML VIAL/SYR IV SCH (22:15)
[2024-06-04] VITALS (7 sets, daily range): BP systolic 97–136; BP diastolic 50–81; PULSE 61–84; RESP 18–20; TEMP 97.6–98.3; O2SAT 95–98
[2024-06-04 06:25] LABS: Basophils # (auto) 0 10 ^3/uL (0-0.2); Basophils % (auto) 0.6 % (0.0-2.0); Eosinophils # (auto) 0.1 10 ^3/uL (0-0.8); Eosinophils % (auto) 1.5 % (0.0-7.0); Hematocrit 40.3 % (36.0-46.0); Hemoglobin 13.8 g/dL (12.2-16.2); Lymphocytes # (auto) 3.3 10 ^3/uL (0.4-5.4); Lymphocytes % (auto) 40.7 % (10.0-50.0); Mean Corpuscular Hemoglobin 28.5 pg (28.0-32.0); Mean Corpuscular Hgb Conc. 34.3 g/dL (32.0-36.0); Mean Corpuscular Volume 83.1 fL (80.0-100.0); Monocytes # (auto) 0.5 10 ^3/uL (0-1.3); Monocytes % (auto) 6.4 % (0.0-12.0); Neutrophils # (auto) 4.1 10 ^3/uL (1.6-8.6); Neutrophils % (auto) 50.8 % (37.0-80.0); Nucleated Red Blood Cells % 0.1 %; Platelet Count (auto) 366 10^3/uL (140-450); Red Blood Cells 4.85 10^6/uL (4.0-5.20); White Blood Cell 8.1 10^3/uL (4.4-10.8)
[2024-06-04 06:31] LABS: Alanine Aminotransferase 11 U/L (7-40); Albumin 3.7 g/dL (3.2-4.8); Alkaline Phosphatase 87 U/L (46-116); Anion Gap 5 (5-15); Aspartate Aminotransferase < 8 U/L (13-40); BUN/Creatinine Ratio 17.5 (10.0-20.0); Bilirubin, Total 0.4 mg/dL (0.2-1.0); Blood Urea Nitrogen 17 mg/dL (9-23); Calcium 9.6 mg/dL (8.7-10.4); Carbon Dioxide 29 mmol/L (20-31); Chloride 109 mmol/L (98-107); Glucose 117 mg/dL (74-106); Potassium 4.1 mmol/L (3.5-5.1); Sodium 143 mmol/L (136-145); Total Protein 7.1 g/dL (5.7-8.2)
[2024-06-04 06:44] LABS: INR 1.07 (0.9-1.15); Partial Thromboplastin Time 24.5 SEC (24.5-34.5); Prothrombin Time 11.3 sec (9.3-11.8)
--- NOTE | 2024-06-04 09:32 | DVHPN2 ---
Reviewed: Care Plan, H&P, Labs, Medications, Previous Orders Changes from previous H/P or p: No Changes Eyes: No Pain, No Vision change, No Conjunctivae inflammation, No Eyelid inflammation, No Other, No Redness ENT: No Ear pain, No Ear discharge, No Nose pain, No Nose discharge, No Nose congestion, No Mouth pain, No Mouth swelling, No Throat pain, No Throat swelling, No Other Cardiovascular: No Chest Pain, No Palpitations, No Orthopnea, No Paroxysmal Noc. Dyspnea, No Edema, No Lt Headedness, No Other Respiratory: No Cough, No Dry, No Shortness of breath, No SOB with excertion, No Wheezing, No Hemoptysis, No Pleuritic Pain, No Sputum, No Other Gastrointestinal: No Nausea, No Vomiting, No Abdominal Pain, No Diarrhea, No Constipation, No Melena, No Hematochezia, No Other Genitourinary: No Dysuria, No Frequency, No Incontinence, No Hematuria, No Retention, No Other Musculoskeletal: other (Right lower leg swelling.); No neck pain, No shoulder pain, No arm pain, No back pain, No hand pain, No leg pain, No foot pain Skin: No Rash, No Lesions, No Jaundice, No Bruising; Other (Open wound base of great toe, right foot.) Objective Vitals Vital Signs Date Time Temp Pulse Resp B/P (MAP) Pulse Ox O2 Delivery O2 Flow Rate FiO2 06/04/24 09:00 98.3 80 18 97/57 (70) 97 98.3 06/03/24 20:00 Room Air* 0 21 Intake/Output Intake and Output 06/04/24 07:00 Intake Total 2085 ml Balance 2085 ml Intake Oral 1985 ml IV Total 100 ml # Voids 6 # Bowel Movements 1 General Appearance: Alert, Oriented X3, Cooperative, No acute distress HEENT: Atraumatic, PERRLA, EOMI, Mucous membr. moist/pink Neck: Supple Lungs: Clear to auscultation, Normal air movement Cardiovascular: Regular rate, Normal S1, Normal S2, No murmurs, Gallops, Rubs Abdomen: Normal bowel sounds, Soft, No tenderness Extremities: Normal pulses, Other (Right foot ulcer, nonhealing) Neuro: Cranial nerves 3-12 NL Psych/Mental Status: Mental status NL Medications Current Medications Medications Dose Ordered Sig/Mely Route Start Time Stop Time Status Last Admin Dose Admin Acetaminophen/ Hydrocodone Bitart 1 tab Q4HP PRN PO 05/31/24 00:45 Ondansetron HCl 4 mg Q4HP PRN IV 05/31/24 00:45 Docusate Sodium 100 mg BIDPRN PRN PO 05/31/24 00:45 Zinc Sulfate 220 mg DAILY PO 05/31/24 10:00 06/03/24 08:23 220 MG Ascorbic Acid 500 mg BID PO 05/31/24 10:00 06/03/24 22:05 500 MG Acetaminophen 650 mg Q6HP PRN PO 05/31/24 00:45 05/31/24 21:37 650 MG Clonidine HCl 0.1 mg Q4HP PRN PO 05/31/24 00:45 Aspirin 81 mg DAILY PO 05/31/24 10:00 06/03/24 08:23 81 MG Atorvastatin Calcium 40 mg HS PO 05/31/24 22:00 06/03/24 22:05 40 MG Nitroglycerin 0.4 mg Q5MINP PRN SL 05/31/24 05:15 Morphine Sulfate 2 mg Q30M PRN IV 05/31/24 05:15 Insulin Glargine 25 units HS SC 06/01/24 22:00 06/03/24 22:08 25 UNITS Diagnostic Test (Pha) 1 strip ACHS 06/01/24 17:00 06/04/24 06:21 1 STRIP Insulin Human Regular HS SC 06/01/24 22:00 06/03/24 22:14 6 UNITS Insulin Human Regular AC SC 06/01/24 17:00 06/03/24 17:01 9 UNITS Dextrose 50 ml UD PRN IV 06/01/24 13:45 Levofloxacin 50 ml @ 50 mls/hr DAILY@1000,1100 IV 06/03/24 10:00 06/03/24 09:58 50 MLS/HR Sodium Chloride 10 ml QSHIFT@10,22 IV 06/03/24 22:00 06/03/24 22:15 10 ML Laboratory Results Laboratory Tests 06/04/24 05:37 Chemistry Test 06/04/24 05:37 Albumin 3.7 g/dL (3.2-4.8) Calcium Level 9.6 mg/dL (8.7-10.4) Total Protein 7.1 g/dL (5.7-8.2) Coagulation Test 06/03/24 14:40 06/04/24 05:37 Prothrombin Time 11.4 sec (9.3-11.8) 11.3 sec (9.3-11.8) Prothrombin Time INR 1.08 (0.9-1.15) 1.07 (0.9-1.15) Activated Partial Thromboplast Time 24.5 SEC (24.5-34.5) 24.5 SEC (24.5-34.5) LFT Test 06/04/24 05:37 Alanine Aminotransferase (ALT) 11 U/L (7-40) Alkaline Phosphatase 87 U/L (46-116) Aspartate Amino Transferase (AST) < 8 U/L (13-40) L Total Bilirubin 0.4 mg/dL (0.2-1.0) HgA1c, TSH Test 06/03/24 14:40 Hemoglobin A1c 7.5 % A1C (<5.7) H Microbiology Microbiology Date/Time Source Procedure Growth Status 05/31/24 11:20 Foot Right Gram Stain - Final Complete 05/31/24 11:20 Wound Culture - Final Proteus mirabilis Enterococcus faecalis Complete Labs and/or images reviewed: Labs reviewed by me, Image(s) reviewed by me Assessment/Plan Assessment/Plan Sepsis secondary to cellulitis of the right foot Acute osteomyelitis right 2nd metatarsal: Rocephin 2 g IV daily for six weeks through PICC line Cellulitis of the right foot and lower extremity: MRI right foot shows osteomyelitis right 2nd metatarsal, podiatric consult by Dr. Soto appreciated Diabetic foot ulcer right foot, wound cultures growing Proteus mirabilis: DC clindamycin start Levaquin Bronchitis UTI Osteomyelitis Old Gangrene of left foot Uncontrolled diabetes: Diabetic education, insulin Noncompliance Awaiting possible amputation of the right 2nd metatarsal head by the wallpaper remover steam Patient does not want to go to snf facility wants to be discharged home on home health with [facility] Examined and discussed with the patient with the help of import export manager Plan discussed with: Patient My Orders Orders - OMAR ADDISON MD Procedure Category Date Status Time * Picc Line Consult CONS 06/03/24 Transmitted 10:06 * Loss Prevention Auditor CONS 06/03/24 Transmitted Consult Pt Request For Service PT 06/03/24 Logged 10:06 Change Dressing Prn MELISSA 06/03/24 In Process 17:42 Sodium Chloride Lock [facility] 06/03/24 In Process (Saline Lock Ns) 22:00 Do Not Use Picc For [facility] 06/03/24 In Process Blood Cult 17:42 May Draw Blood From [facility] 06/03/24 In Process Picc 17:42 Ok To Use Picc [facility] 06/03/24 In Process 17:42 Change Picc Dressing [facility] 06/03/24 In Process Q7 Days 17:42 Us Guided Vascular US 06/03/24 Taken Access 17:42 Date of Service: Jun 04, 2024 Billing Provider: OMAR ADDISON MD Common Visit Codes: [id number] INP/OBS CARE(HIGH) OMAR ADDISON MD Jun 04, 2024 09:32
[2024-06-04] MEDS: cefTRIAXone 2GM/50ML D5W 50 ML IV SCH (11:19)
[2024-06-04] MEDS: LINEZOLID 600MG/300ML 300 ML IV SCH (12:44)
--- NOTE | 2024-06-04 14:08 | DVHPN2 ---
Subjective The patient is a 58-year-old female with past medical history of DM, hyperlipidemia, and hypertension who presented to [facility] ED for evaluation of right lower extremity swelling. Patient has diabetic right foot ulcer status post debridement of a sore of the great to recently, noted open wound of the great toe for the past week with swellings, burning pain, getting worse that prompted this visit. Patient was seen by wound care nurse and advised to come to the ER. Patient was seen and evaluated in the ED, laboratory data shows WBC 9.4, platelets 377, sodium 140, potassium 3.9, BUN 7, creatinine 0.85, glucose 73, blood pressure 146/59, heart rate 76, temperature 99.1 F, O2 saturation 98% on room air. Extremity venous study showed no right femoropopliteal venous thrombosis. Patient was started on IV antibiotic regimen clindamycin, please see medication orders section in the computer. On my assessment, patient denies chest pain, no headache, no dizziness, no diaphoresis, no shortness of breath, no nausea, no vomiting, no fever, no chills. Patient was admitted for further evaluation and medical management. Reviewed: Care Plan, H&P, Labs, Medications, Previous Orders Changes from previous H/P or p: No Changes Eyes: No Pain, No Vision change, No Conjunctivae inflammation, No Eyelid inflammation, No Other, No Redness ENT: No Ear pain, No Ear discharge, No Nose pain, No Nose discharge, No Nose congestion, No Mouth pain, No Mouth swelling, No Throat pain, No Throat swelling, No Other Cardiovascular: No Chest Pain, No Palpitations, No Orthopnea, No Paroxysmal Noc. Dyspnea, No Edema, No Lt Headedness, No Other Respiratory: No Cough, No Dry, No Shortness of breath, No SOB with excertion, No Wheezing, No Hemoptysis, No Pleuritic Pain, No Sputum, No Other Gastrointestinal: No Nausea, No Vomiting, No Abdominal Pain, No Diarrhea, No Constipation, No Melena, No Hematochezia, No Other Genitourinary: No Dysuria, No Frequency, No Incontinence, No Hematuria, No Retention, No Other Musculoskeletal: other (Right lower leg swelling.); No neck pain, No shoulder pain, No arm pain, No back pain, No hand pain, No leg pain, No foot pain Skin: No Rash, No Lesions, No Jaundice, No Bruising; Other (Open wound base of great toe, right foot.) Objective Vitals Vital Signs Date Time Temp Pulse Resp B/P (MAP) Pulse Ox O2 Delivery O2 Flow Rate FiO2 06/04/24 12:13 98.1 83 18 104/56 (72) 95 98.1 06/03/24 20:00 Room Air* 0 21 Intake/Output Intake and Output 06/04/24 07:00 Intake Total 2085 ml Balance 2085 ml Intake Oral 1985 ml IV Total 100 ml # Voids 6 # Bowel Movements 1 Exam DERMATOLOGIC EXAM: - Skin is dry and cool to the touch dry bilaterally. - Nails 1-5 of the bilateral foot are thickened, discolored, dystrophic, and tender to palpate with subungual debris - Hair loss noted to bilateral feet Wound #1: Location: Right plantar foot Measurements: Length 4 cm x width 2 cm x depth 1 cm. Wound margins: Hyperkeratotic. Wound base: Full thickness. General Appearance: Healthy and bleeding. Probes to Bone: Yes Purulent drainage: S Serous drainage: No Erythema: Periwound VASCULAR EXAM: - DP and PT pulses are palpable bilaterally. - MELLOWING MACHINE OPERATOR is brisk to all digits. - Feet are cool to touch compared to lower legs bilaterally. NEUROLOGIC EXAM: - Normal light touch sensation to the superficial peroneal, deep peroneal, sural, saphenous, and tibial nerve branches. - Protective sensation is diminished as tested with a 5.07 10g [place]-Jesus bilaterally. MUSCULOSKELETAL EXAM: - No gross deformities - Muscle strength is 5/5 and active motion is pain-free and symmetrical bilaterally - No pain or crepitation with passive range of motion bilaterally to all major pedal joints General Appearance: Alert, Oriented X3, Cooperative, No acute distress HEENT: Atraumatic, PERRLA, EOMI, Mucous membr. moist/pink Neck: Supple Lungs: Clear to auscultation, Normal air movement Cardiovascular: Regular rate, Normal S1, Normal S2, No murmurs, Gallops, Rubs Abdomen: Normal bowel sounds, Soft, No tenderness Extremities: Normal pulses, Other (Right foot ulcer, nonhealing) Neuro: Cranial nerves 3-12 NL Psych/Mental Status: Mental status NL Medications Current Medications Medications Dose Ordered Sig/Mely Route Start Time Stop Time Status Last Admin Dose Admin Acetaminophen/ Hydrocodone Bitart 1 tab Q4HP PRN PO 05/31/24 00:45 Ondansetron HCl 4 mg Q4HP PRN IV 05/31/24 00:45 Docusate Sodium 100 mg BIDPRN PRN PO 05/31/24 00:45 Zinc Sulfate 220 mg DAILY PO 05/31/24 10:00 06/04/24 11:18 220 MG Ascorbic Acid 500 mg BID PO 05/31/24 10:00 06/04/24 11:18 500 MG Acetaminophen 650 mg Q6HP PRN PO 05/31/24 00:45 05/31/24 21:37 650 MG Clonidine HCl 0.1 mg Q4HP PRN PO 05/31/24 00:45 Aspirin 81 mg DAILY PO 05/31/24 10:00 06/03/24 08:23 81 MG Atorvastatin Calcium 40 mg HS PO 05/31/24 22:00 06/03/24 22:05 40 MG Nitroglycerin 0.4 mg Q5MINP PRN SL 05/31/24 05:15 Morphine Sulfate 2 mg Q30M PRN IV 05/31/24 05:15 Insulin Glargine 25 units HS SC 06/01/24 22:00 06/03/24 22:08 25 UNITS Diagnostic Test (Pha) 1 strip ACHS 06/01/24 17:00 06/04/24 12:20 1 STRIP Insulin Human Regular HS SC 06/01/24 22:00 06/03/24 22:14 6 UNITS Insulin Human Regular AC SC 06/01/24 17:00 06/03/24 17:01 9 UNITS Dextrose 50 ml UD PRN IV 06/01/24 13:45 Sodium Chloride 10 ml QSHIFT@10,22 IV 06/03/24 22:00 06/04/24 11:19 10 ML Ceftriaxone Sodium/Dextrose 50 ml @ 50 mls/hr DAILY IV 06/04/24 10:00 06/04/24 11:19 50 MLS/HR Linezolid 300 ml @ 150 mls/hr Q12H IV 06/04/24 10:30 06/04/24 12:44 150 MLS/HR Laboratory Results Laboratory Tests 06/04/24 05:37 Chemistry Test 06/04/24 05:37 Albumin 3.7 g/dL (3.2-4.8) Calcium Level 9.6 mg/dL (8.7-10.4) Total Protein 7.1 g/dL (5.7-8.2) Coagulation Test 06/03/24 14:40 06/04/24 05:37 Prothrombin Time 11.4 sec (9.3-11.8) 11.3 sec (9.3-11.8) Prothrombin Time INR 1.08 (0.9-1.15) 1.07 (0.9-1.15) Activated Partial Thromboplast Time 24.5 SEC (24.5-34.5) 24.5 SEC (24.5-34.5) LFT Test 06/04/24 05:37 Alanine Aminotransferase (ALT) 11 U/L (7-40) Alkaline Phosphatase 87 U/L (46-116) Aspartate Amino Transferase (AST) < 8 U/L (13-40) L Total Bilirubin 0.4 mg/dL (0.2-1.0) HgA1c, TSH Test 06/03/24 14:40 Hemoglobin A1c 7.5 % A1C (<5.7) H Microbiology Microbiology Date/Time Source Procedure Growth Status 05/31/24 11:20 Foot Right Gram Stain - Final Complete 05/31/24 11:20 Wound Culture - Final Proteus mirabilis Enterococcus faecalis Complete Assessment/Plan Assessment/Plan ASSESSMENT: Patient is a 58-year-old female seen on floor for a right foot wound PLAN: - The patients chart was reviewed, clinical findings were discussed with the patient, the etiologies of the conditions were discussed in detail, and a treatment plan was agreed to at this time, with both oral and written instructions provided. - reviewed MRI which did show osteomyelitis of the 2nd metatarsal as well as concern in the 1st proximal phalanx and dislocation of the 3rd - Discussed what but patient my recommendation is to perform I&D with amputation of the 2nd possibly 1st and 3rd metatarsals - discussed that we would keep the toes but the surgical operation would offload and decrease pressure which would allow the plantar wound to heal - patient NPO since midnight - we will obtain cultures All questions were answered and concerns addressed to the patient's satisfaction. The patient was given the phone number to the clinic and was told how to make contact with the clinic should any concerns or questions arise. Patient understands that if any questions or concerns arise prior to the next appointment, we should be contacted immediately. FOLLOW-UP: Follow while inpatient Plan discussed with: Patient Problem List: (1) Cellulitis of right lower extremity (2) Diabetic foot ulcer (3) Cellulitis (4) Acute bronchitis (5) Sepsis (6) UTI (urinary tract infection) (7) Osteomyelitis (8) Allergic reaction caused by a drug (9) Ulcer of left foot (10) Diabetic foot ulcer associated with type 2 diabetes mellitus, with fat layer exposed (11) Gangrene of left foot Date of Service: Jun 04, 2024 Billing Provider: KELLY CASTELLANOS DPM Common Visit Codes: [id number] INP/OBS CARE(MOD) KELLY CASTELLANOS DPM Jun 04, 2024 14:08
[2024-06-04] MEDS ORDERED: DexAMETHasone SOD PHOS 10MG/1ML VIAL INJ ONE (15:46)
[2024-06-04] MEDS ORDERED: GLYCOPYRROLATE 0.2 MG/ML 1ML VIAL ONE (15:46)
[2024-06-04] MEDS ORDERED: ONDANSETRON HCL 4 MG/2 ML VIAL ONE (15:46)
[2024-06-04] MEDS ORDERED: PROPOFOL 10 MG/ML 20 ML IV ONE (15:46)
[2024-06-04] MEDS ORDERED: KETOROLAC TROMETH 30 MG/ML 1ML VIAL ONE (15:46)
[2024-06-04] MEDS ORDERED: KETAMINE 50mg/ML 1ml syringe ONE (15:51)
--- NOTE | 2024-06-04 16:33 | DVHOP2 ---
Operative Report - 2 Report Details Date: 06/04/24 Preop Diagnosis: 1. Right foot osteomyelitis 2. Right foot abscess 3. Right foot diabetic ulcer Postop Diagnosis: Same as preop Surgeon: Kelly Castellanos MD Anesthesiologist: See anesthesia Anesthesia: Mac Consent: The patient was informed of the risks and benefits of the procedure. These include but are not limited to complications of anesthesia, postoperative infection, incomplete relief of symptoms, recurrence of symptoms, damage to blood vessels, nerves and tendons, deep venous thrombosis, pulmonary embolism and possible need for repeat surgery in the future. Complications: None Estimated Blood Loss: Minimal Fluids: See anesthesia Findings: Consistent with diagnosis Indications for Surgery: Worsening right foot wound Name of Procedure Performed 1. Right foot I&D to bone 2. Right foot second metatarsal partial amputation 3. Right foot bone biopsy Procedure Details Procedure Details: PRE-PROCEDURE INFORMATION: In the pre-op holding area, the extremity to be operated on was clearly marked and the patient verified correct laterality of the marking. The patient was transferred to the OR table and placed in a supine position. A timeout was performed in which identification of the correct patient, procedure, location, and materials was done. The right foot and leg were prepped and draped in normal sterile fashion. DESCRIPTION OF PROCEDURE: Attention was directed to the right foot where area of fluctuance was noted. An incision was made over this area and was deepened through blunt dissection. The incision was deepened to the level of abscess and bone. Care was taken to the dissection to avoid any neurovascular and tendinous structures. The incision was deepened to the area of fluctuance. The abscess appeared to be purulent fluid consistent with pus, proximally 2 cc. After the abscess was drained, the area was irrigated with 3 L normal saline using cysto tubing. It was decided at that point that partial amputation of the 2nd metatarsal head was in agreement per MRI as well as clinically. He is in sagittal saw the metatarsal head was then amputated. Deep cultures were then obtained of the right foot. The wound was then closed with 2-0 nylon. All surgical wounds were irrigated copiously with saline and closed in layers with the aforementioned suture material. A dry sterile dressing was placed on the surgical extremity. The patient was placed in a postop shoe POSTOPERATIVE INFORMATION: The patient tolerated the above noted procedure and anesthesia well and was transferred to the PACU with vital signs stable, and vascular status intact with capillary refill intact to all digits. Cultures were obtained the patient will return for IV antibiotics on the floor. Patient can weightbear as tolerated in the postoperative shoe. Condition Good Disposition Still a Patient KELLY CASTELLANOS DPM Jun 04, 2024 16:33
[2024-06-04] MEDS: BUPIVACAINE 0.5% P/F INJ 10 ML VIAL ONE (16:41)
[2024-06-04] MEDS ORDERED: fentaNYL CITRATE 100 MCG/2 ML VL IV PRN (16:45)
[2024-06-04] MEDS ORDERED: FLUMAZENIL 0.1 MG/ML INJ 10ML MDV IV PRN (16:45)
[2024-06-04] MEDS ORDERED: ePHEDrine SULFATE 50 MG/ML AMP IV PRN (16:45)
[2024-06-04] MEDS ORDERED: NALOXONE HCL 0.4 MG/ML VIAL IV PRN (16:45)
[2024-06-04] MEDS ORDERED: HYDROmorphone HCL 2 MG/ML VL/or syr IV PRN (16:45)
[2024-06-04] MEDS ORDERED: hydrALAZINE HCL 20 MG/ML VL IV PRN (16:45)
[2024-06-04] MEDS ORDERED: ONDANSETRON HCL 4 MG/2 ML VIAL IV PRN (16:45)
[2024-06-04] MEDS ORDERED: DEXTROSE (50%) 50ML SYRG IV PRN (22:45)
[2024-06-04] MEDS: InsuLIN REG 1unit/0.01ml Soln (100units/ml) SC SCH (23:09)
[2024-06-04] MEDS: ACCU-CHEK COMFORT CURVE STRIP VI SCH (23:23)
[2024-06-05 05:00] VITALS: BP 123/48; PULSE 78; RESP 18; TEMP 97.5; O2SAT 93
[2024-06-05 08:46] VITALS: BP 142/69; PULSE 81; RESP 16; TEMP 97.6; O2SAT 95
--- NOTE | 2024-06-05 10:08 | DVHPN2 ---
Reviewed: Care Plan, H&P, Labs, Medications, Previous Orders Changes from previous H/P or p: No Changes Eyes: No Pain, No Vision change, No Conjunctivae inflammation, No Eyelid inflammation, No Other, No Redness ENT: No Ear pain, No Ear discharge, No Nose pain, No Nose discharge, No Nose congestion, No Mouth pain, No Mouth swelling, No Throat pain, No Throat swelling, No Other Cardiovascular: No Chest Pain, No Palpitations, No Orthopnea, No Paroxysmal Noc. Dyspnea, No Edema, No Lt Headedness, No Other Respiratory: No Cough, No Dry, No Shortness of breath, No SOB with excertion, No Wheezing, No Hemoptysis, No Pleuritic Pain, No Sputum, No Other Gastrointestinal: No Nausea, No Vomiting, No Abdominal Pain, No Diarrhea, No Constipation, No Melena, No Hematochezia, No Other Genitourinary: No Dysuria, No Frequency, No Incontinence, No Hematuria, No Retention, No Other Musculoskeletal: other (Right lower leg swelling.); No neck pain, No shoulder pain, No arm pain, No back pain, No hand pain, No leg pain, No foot pain Skin: No Rash, No Lesions, No Jaundice, No Bruising; Other (Open wound base of great toe, right foot.) Objective Vitals Vital Signs Date Time Temp Pulse Resp B/P (MAP) Pulse Ox O2 Delivery O2 Flow Rate FiO2 06/05/24 08:46 97.6 81 16 142/69 (93) 95 97.6 06/05/24 07:45 Room Air* 0 21 Intake/Output Intake and Output 06/05/24 07:00 Intake Total 1060 ml Output Total 500 ml Balance 560 ml Intake Oral 400 ml IV Total 660 ml Output Urine Total 500 ml # Voids 2 General Appearance: Alert, Oriented X3, Cooperative, No acute distress HEENT: Atraumatic, PERRLA, EOMI, Mucous membr. moist/pink Neck: Supple Lungs: Clear to auscultation, Normal air movement Cardiovascular: Regular rate, Normal S1, Normal S2, No murmurs, Gallops, Rubs Abdomen: Normal bowel sounds, Soft, No tenderness Extremities: Normal pulses, Other (Right foot ulcer, nonhealing) Neuro: Cranial nerves 3-12 NL Psych/Mental Status: Mental status NL Medications Current Medications Medications Dose Ordered Sig/Mely Route Start Time Stop Time Status Last Admin Dose Admin Acetaminophen/ Hydrocodone Bitart 1 tab Q4HP PRN PO 05/31/24 00:45 Ondansetron HCl 4 mg Q4HP PRN IV 05/31/24 00:45 Docusate Sodium 100 mg BIDPRN PRN PO 05/31/24 00:45 Zinc Sulfate 220 mg DAILY PO 05/31/24 10:00 06/04/24 11:18 220 MG Ascorbic Acid 500 mg BID PO 05/31/24 10:00 06/05/24 09:29 500 MG Acetaminophen 650 mg Q6HP PRN PO 05/31/24 00:45 05/31/24 21:37 650 MG Clonidine HCl 0.1 mg Q4HP PRN PO 05/31/24 00:45 Aspirin 81 mg DAILY PO 05/31/24 10:00 06/05/24 09:29 81 MG Atorvastatin Calcium 40 mg HS PO 05/31/24 22:00 06/04/24 22:58 40 MG Nitroglycerin 0.4 mg Q5MINP PRN SL 05/31/24 05:15 Morphine Sulfate 2 mg Q30M PRN IV 05/31/24 05:15 Insulin Glargine 25 units HS SC 06/01/24 22:00 06/04/24 23:22 25 UNITS Sodium Chloride 10 ml QSHIFT@10,22 IV 06/03/24 22:00 06/05/24 09:30 10 ML Ceftriaxone Sodium/Dextrose 50 ml @ 50 mls/hr DAILY IV 06/04/24 10:00 06/05/24 09:29 50 MLS/HR Linezolid 300 ml @ 150 mls/hr Q12H IV 06/04/24 10:30 06/04/24 22:57 150 MLS/HR Diagnostic Test (Pha) 1 strip IQ4HR 06/05/24 00:00 06/05/24 09:30 1 STRIP Insulin Human Regular IQ4HR SC 06/05/24 00:00 06/05/24 09:43 4 UNITS Dextrose 50 ml UD PRN IV 06/04/24 22:45 Laboratory Results Laboratory Tests 06/04/24 05:37 Microbiology Microbiology Date/Time Source Procedure Growth Status 05/31/24 11:20 Foot Right Gram Stain - Final Complete 05/31/24 11:20 Wound Culture - Final Proteus mirabilis Enterococcus faecalis Complete Labs and/or images reviewed: Labs reviewed by me, Image(s) reviewed by me Assessment/Plan Assessment/Plan Sepsis secondary to cellulitis of the right foot Acute osteomyelitis right 2nd metatarsal: Rocephin 2 g IV daily and Zyvox 600 mg IV q.12h for six weeks through PICC line Cellulitis of the right foot and lower extremity: MRI right foot shows osteomyelitis right 2nd metatarsal, podiatric consult by Dr. Soto appreciated Status post right foot surgery by Dr. Soto on 06-04-24: 1. Right foot I&D to bone 2. Right foot second metatarsal partial amputation 3. 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 Uncontrolled diabetes: Diabetic education, insulin Noncompliance Patient does not want to go to retirement facility wants to be discharged home on home health with [facility] Examined and discussed with the patient with the help of international exchange coordinator Social service consult placed for arranging IV antibiotics Plan discussed with: Patient My Orders Orders - OMAR ADDISON MD Procedure Category Date Status Time * Associate Medical Director CONS 06/05/24 Verified Consult 09:53 Date of Service: Jun 05, 2024 Billing Provider: OMAR ADDISON MD Common Visit Codes: [id number] INP/OBS CARE(HIGH) OMAR ADDISON MD Jun 05, 2024 10:08
--- NOTE | 2024-06-05 10:14 | DVHDS2 ---
Discharge Summary Date of Admission May 31, 2024 at 05:14 Date of Discharge: Jun 05, 2024 Admitting Diagnosis Right foot nonhealing diabetic ulcer Wounds: Diabetic ulcer Labs/Diagnostic Data: Laboratory Results Test 06/05/24 08:28 06/04/24 05:37 06/03/24 14:40 06/03/24 13:08 POC Glucose 238 mg/dl (70-106) White Blood Count 8.1 10^3/uL (4.4-10.8) Red Blood Count 4.85 10^6/uL (4.0-5.20) Hemoglobin 13.8 g/dL (12.2-16.2) Hematocrit 40.3 % (36.0-46.0) Mean Corpuscular Volume 83.1 fL (80.0-100.0) Mean Corpuscular Hemoglobin 28.5 pg (28.0-32.0) Mean Corpuscular Hemoglobin Concent 34.3 g/dL (32.0-36.0) Red Cell Distribution Width 14.0 % (11.8-14.3) Platelet Count 366 10^3/uL (140-450) Mean Platelet Volume 6.9 fL (6.9-10.8) Neutrophils (%) (Auto) 50.8 % (37.0-80.0) Lymphocytes (%) (Auto) 40.7 % (10.0-50.0) Monocytes (%) (Auto) 6.4 % (0.0-12.0) Eosinophils (%) (Auto) 1.5 % (0.0-7.0) Basophils (%) (Auto) 0.6 % (0.0-2.0) Neutrophils # (Auto) 4.1 10 ^3/uL (1.6-8.6) Lymphocytes # (Auto) 3.3 10 ^3/uL (0.4-5.4) Monocytes # (Auto) 0.5 10 ^3/uL (0-1.3) Eosinophils # (Auto) 0.1 10 ^3/uL (0-0.8) Basophils # (Auto) 0 10 ^3/uL (0-0.2) Nucleated Red Blood Cells 0.1 % Prothrombin Time 11.3 sec (9.3-11.8) Prothrombin Time INR 1.07 (0.9-1.15) Activated Partial Thromboplast Time 24.5 SEC (24.5-34.5) Sodium Level 143 mmol/L (136-145) Potassium Level 4.1 mmol/L (3.5-5.1) Chloride Level 109 mmol/L (98-107) Carbon Dioxide Level 29 mmol/L (20-31) Anion Gap 5 (5-15) Blood Urea Nitrogen 17 mg/dL (9-23) Creatinine 0.97 mg/dL (0.550-1.02) Glomerular Filtration Rate Calc 68 mL/min (>90) BUN/Creatinine Ratio 17.5 (10.0-20.0) Serum Glucose 117 mg/dL (74-106) Calcium Level 9.6 mg/dL (8.7-10.4) Total Bilirubin 0.4 mg/dL (0.2-1.0) Aspartate Amino Transferase (AST) < 8 U/L (13-40) Alanine Aminotransferase (ALT) 11 U/L (7-40) Alkaline Phosphatase 87 U/L (46-116) Total Protein 7.1 g/dL (5.7-8.2) Albumin 3.7 g/dL (3.2-4.8) Hemoglobin A1c 7.5 % A1C (<5.7) SARS-CoV-2 Antigen (Rapid) Negative (NEGATIVE) Other Laboratory Tests 06/04/24 05:37 Brief Hx & Hospital Course: 58-year-old female came in for diabetic nonhealing right foot ulcer. Wound cultures growing Proteus mirabilis and Enterococcus faecalis started on Rocephin and Zyvox patient underwent right foot I and D to bone and partial amputation of the 2nd metatarsal right foot bone biopsy done. The procedure was done by podiatric Dr. Soto. Patient was advised a correction facility placement for IV antibiotics and wound care but patient refused. Patient being discharged home on home health for IV antibiotics and wound care she will follow up with the primary Dr and with the die cast patternmaker. Discharge plan and management explained to the patient with the help of annealing torch operator JENNIFER Fernandez. Patient has PICC line. Consults/Reason for consult Podiatric Dr. Soto Operations or Procedures 1. Right foot I&D to bone 2. Right foot second metatarsal partial amputation 3. Right foot bone biopsy Condition at Discharge: Fair Final Diagnosis/Problems List Sepsis secondary to cellulitis of the right foot Acute osteomyelitis right 2nd metatarsal: Rocephin 2 g IV daily and Zyvox 600 mg IV q.12h for six weeks through PICC line Cellulitis of the right foot and lower extremity: MRI right foot shows osteomyelitis right 2nd metatarsal, podiatric consult by Dr. Soto appreciated Status post right foot surgery by Dr. Soto on 06-04-24: 1. Right foot I&D to bone 2. Right foot second metatarsal partial amputation 3. 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 Soto in one week Follow up with your home health DrClarisa Medications: Rocephin 1 g IV daily for six weeks Zyvox 600 mg IV q.12h for six weeks Both to be given by home health 35 (Time taken for discharge summary 35 minutes) Discharge Statement: "Patient was advised to return to the ER or call 911 if any headaches, dizziness, shortness of breath, chest pain, abdominal pain, bleeding, fevers, or worsening of medical condition. Patient was counseled about treatment plan, medications, possible side effects, patientverbalized understanding. All questions were answered to the best of my ability. This discharge took greater then 30 minutes in planning, reviewing documentation, counseling the patient, and discussing with other team members." ASSESSMENT ASSESSMENT Hospital Course Improved Assessment Sepsis secondary to cellulitis of the right foot Acute osteomyelitis right 2nd metatarsal: Rocephin 2 g IV daily and Zyvox 600 mg IV q.12h for six weeks through PICC line Cellulitis of the right foot and lower extremity: MRI right foot shows osteomyelitis right 2nd metatarsal, podiatric consult by Dr. Soto appreciated Status post right foot surgery by Dr. Soto on 06-04-24: 1. Right foot I&D to bone 2. Right foot second metatarsal partial amputation 3. 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
[2024-06-05 13:00] VITALS: BP 139/79; PULSE 75; RESP 18; TEMP 97.6; O2SAT 95
[2024-06-05 16:50] VITALS: BP 137/68; PULSE 86; RESP 16; TEMP 98.2; O2SAT 95
== END 2024-06-05 16:36 | disposition home health service (06) | DRG 710 ==
LOC: ER 22:05 → OVERFLOW 05-31 05:14 → EAST 05-31 17:04
PROVIDERS: ADMIT Internal Medicine; ATTEND Family Medicine
PROC: 02HV33Z Insertion of Infusion Device into Superior Vena Cava, Percutaneous Approach (ICD-10-PCS; 2024-06-03)
PROC: B548ZZA Ultrasonography of Superior Vena Cava, Guidance (ICD-10-PCS; 2024-06-03)
PROC: 0Y6M0ZB Detachment at Right Foot, Partial 2nd Ray, Open Approach (ICD-10-PCS; principal; 2024-06-04 16:06)
DX: A41.9 Sepsis, unspecified organism (principal); E11.621 Type 2 diabetes mellitus with foot ulcer; M86.171 Other acute osteomyelitis, right ankle and foot; N39.0 Urinary tract infection, site not specified; L03.115 Cellulitis of right lower limb; L97.519 Non-pressure chronic ulcer of other part of right foot with unspecified severity; Z20.822 Contact with and (suspected) exposure to COVID-19; E78.5 Hyperlipidemia, unspecified; I10 Essential (primary) hypertension; J20.9 Acute bronchitis, unspecified; E11.69 Type 2 diabetes mellitus with other specified complication; Z80.0 Family history of malignant neoplasm of digestive organs; Z91.199 Patient's noncompliance with other medical treatment and regimen due to unspecified reason; Z88.1 Allergy status to other antibiotic agents; Z79.4 Long term (current) use of insulin; Z80.49 Family history of malignant neoplasm of other genital organs
CPT/HCPCS: 36415; 36569; 73620; 73718; 80048; 80053; 82962; 83036; 85025; 85610; 85730; 86850; 86900; 86901; 87070; 87075; 87077; 87186; 87205; 87426; 93971; 96365; 97116; 97163; 97530; C1781; G0378; J1100; J1815; J1885; J2405; J2704; J3490

== ENCOUNTER 2024-12-17 18:39 | Emergency (ER) | payer MEDICAID ==
[~2024-12-17] VITALS: Ht 167.6 cm; Wt 92.0 kg
--- NOTE | 2024-12-17 19:04 | ED.PDOC ---
History of Present Illness HPI Comments 59-year-old female complains of some dull lower back pain that is worse with movement as well as some lightheadedness and dizziness and fatigue and malaise. Chief Complaint: Dizziness Time Seen by MD: 18:56 Primary Care Provider: SURY Allergies: Coded Allergies: Vancomycin (Verified Allergy, Unknown, 01/30/24) RASH AND ITCHING Home Meds Active Scripts Meclizine HCl (Meclizine) 25 Mg Chw, 25 MG PO Q6HP PRN, #30 CHW Prov:RITCHIE KAT MD 12/17/24 Levofloxacin (Levaquin) 500 Mg Tab, 500 MG IV DAILY for 10 Days, #10 INJ Please dispense in an IV formulary for the patient to self dispense through her PICC line Prov:MICHAEL JEAN PAC 12/01/22 Reported Medications Insulin Aspart Protamine & Asp (Insulin Aspart Protamine/ (70-30) 100 Unit/ml) 1 Inj Inj, 16 UNITS SC QPM, INJ 09/12/19 Insulin Aspart Protamine & Asp (Novolog Mix 70/30 Prefill (70-30) 100 Unit/ml) 1 Inj Inj, 56 UNITS SC QAM, INJ 09/12/19 Metformin Hydrochloride (Metformin Hcl) 850 Mg Tab 09/12/19 Aspirin (EQ ASPIRIN ADULT LOW DOSE) 81 Mg Tab 09/12/19 Atorvastatin Calcium (ATORVASTATIN CALCIUM) 40 Mg Tab 09/12/19 Lisinopril (Lisinopril) 10 Mg Tab 09/12/19 Information Source: Patient Severity: Moderate Timing: Days Duration: Since onset Past Medical History PAST MEDICAL HISTORY: DM, High Lipids, HTN Surgical History: Denies all surgeries SUBACUTE NURSE History: No Pertinent SUBACUTE NURSE History Family History Family History: Reviewed,noncontributory to illness Social History Smoker: Non-Smoker Alcohol: Denies ETOH Use Drugs: Denies Drug Use Lives In: Home Constitutional: reports: fatigue, malaise Neurological: reports: dizziness Musculoskeletal: reports: back pain, muscle stiffness All Other Systems: Reviewed and Negative Physical Exam General Appearance: Mild Distress, Obese HEENT: Normal ENT Inspection, Pharynx Normal, TMs Normal Neck: Full Range of Motion, Non-Tender, Normal, Normal Inspection Respiratory: Chest Non-Tender, Lungs Clear, No Accessory Muscle Use, No Respir atory Distress, Normal Breath Sounds Cardiovascular: No Edema, No JVD, No Murmur, No Gallop, Normal Peripheral Pulses, Regular Rate/Rhythm Breast Exam: Deferred Gastrointestinal: No Organomegaly, Non Tender, No Pulsatile Mass, Normal Bowel Sounds, Soft Genitalia: Deferred Pelvic: Deferred Rectal: Deferred Extremities: Normal capillary refill, Non-tender Musculoskeletal : Apperance: Normal Neurologic: Alert, home improvement advisor II-XII nml as Tested, No Motor Deficits, Normal Affect, Normal Mood, No Sensory Deficits Cerebellar Function: Normal Reflexes: Normal Skin: Dry, Normal Color, Warm Lymphatic: No Adenopathy Was a procedure done? Was a procedure done?: No EKG EKG : Pulse Rate (adult): 97 Cardiac Rhythm: NSR Comments low voltage Differential Dx Considerations may include: Differential diagnosis includes but is not limited to: coronary ischemia, dehydration, sepsis, electrolyte abnormality, symptomatic anemia, hypovolemia and others X-Ray, Labs, Meds, VS Vital Signs Date Time Temp Pulse Resp B/P (MAP) Pulse Ox O2 Delivery O2 Flow Rate FiO2 12/18/24 00:15 97.6 88 18 128/50 (76) 98 97.6 12/18/24 00:15 Room Air* 0 21 12/17/24 19:04 97 12/17/24 18:59 97 12/17/24 18:55 97.5 88 18 128/50 (76) 98 97.5 134/54 (80) Lab Test 12/17/24 20:04 12/17/24 19:13 12/17/24 18:55 Range/Units Troponin I High Sensitivity < 3 L < 3 L </=34 ng/L White Blood Count 9.9 4.4-10.8 10^3/uL Red Blood Count 5.17 4.0-5.20 10^6/uL Hemoglobin 14.5 12.2-16.2 g/dL Hematocrit 43.9 36.0-46.0 % Mean Corpuscular Volume 85.0 80.0-100.0 fL Mean Corpuscular Hemoglobin 28.1 28.0-32.0 pg Mean Corpuscular Hemoglobin Concent 33.1 32.0-36.0 g/dL Red Cell Distribution Width 13.8 11.8-14.3 % Platelet Count 293 140-450 10^3/uL Mean Platelet Volume 7.3 6.9-10.8 fL Neutrophils (%) (Auto) 65.4 37.0-80.0 % Lymphocytes (%) (Auto) 27.7 10.0-50.0 % Monocytes (%) (Auto) 6.1 0.0-12.0 % Eosinophils (%) (Auto) 0.4 0.0-7.0 % Basophils (%) (Auto) 0.4 0.0-2.0 % Neutrophils # (Auto) 6.5 1.6-8.6 10 ^3/uL Lymphocytes # (Auto) 2.7 0.4-5.4 10 ^3/uL Monocytes # (Auto) 0.6 0-1.3 10 ^3/uL Eosinophils # (Auto) 0 0-0.8 10 ^3/uL Basophils # (Auto) 0 0-0.2 10 ^3/uL Nucleated Red Blood Cells 0.0 % Sodium Level 140 136-145 mmol/L Potassium Level 4.6 3.5-5.1 mmol/L Chloride Level 106 98-107 mmol/L Carbon Dioxide Level 22 20-31 mmol/L Anion Gap 12 5-15 Blood Urea Nitrogen 20 9-23 mg/dL Creatinine 1.69 H 0.550-1.02 mg/dL Glomerular Filtration Rate Calc 35 >90 mL/min BUN/Creatinine Ratio 11.8 10.0-20.0 Serum Glucose 157 H 74-106 mg/dL Calcium Level 10.3 8.7-10.4 mg/dL Magnesium Level 2.1 1.6-2.6 mg/dL Total Bilirubin 0.4 0.2-1.0 mg/dL Aspartate Amino Transferase (AST) 16 13-40 U/L Alanine Aminotransferase (ALT) 16 7-40 U/L Alkaline Phosphatase 96 46-116 U/L Total Protein 7.6 5.7-8.2 g/dL Albumin 4.5 3.2-4.8 g/dL Urine Color Yellow Yellow Urine Clarity Turbid H Clear Urine pH 5.5 5.0-9.0 Urine Specific [employer] 1.023 1.001-1.035 Urine Protein 1+ H Negative Urine Ketones Trace Negative Urine Blood Negative Negative /uL Urine Nitrite Negative Negative Urine Bilirubin Negative Negative Urine Urobilinogen 2 H Negative mg/dL Urine Leukocyte Esterase Negative Negative /uL Urine RBC 2 0 - 4 /hpf Urine Microscopic WBC 5 0-5 /HPF Urine Squamous Epithelial Cells Few <5 /hpf Urine Calcium Oxalate Crystals Few None Seen Urine Bacteria None seen None Seen /hpf Urine Hyaline Casts Many 0 - 2 /lpf Urine Mucus Few None Seen Urine Glucose 4+ H Normal mg/dL POC Glucose 163 H 70-106 mg/dl Time of 1ST Reevaluation: 19:03 Reevaluation 1ST: Unchanged Patient Education/Counseling: Diagnosis, Treatment Family Education/Counseling: No Family Present Departure 1 Departure Time of Disposition: 21:00 Impression: Primary Impression: Dizziness Disposition: 01 HOME / SELF CARE / HOMELESS Condition: Stable e-Prescriptions Meclizine HCl (Meclizine) 25 Mg Chw 25 MG PO Q6HP PRN, #30 CHW Prov: RITCHIE KAT MD 12/17/24 Discharged With: Self Critical Care Note Critical Care Time?: No Stability Stability form required: No Heart Score Heart Score: Heart Score Response (Comments) Value History Slightly Suspicious 0 EKG Normal 0 Age 45-64 1 Risk Factors 1 or 2 risk factors 1 Troponin Normal limit 0 Total 2 RITCHIE KAT MD December 17, 2024 19:04
[2024-12-17 19:24] LABS: Urine Bacteria None Seen /hpf (None Seen)
[2024-12-17 19:28] LABS: Basophils # (auto) 0 10 ^3/uL (0-0.2); Basophils % (auto) 0.4 % (0.0-2.0); Eosinophils # (auto) 0 10 ^3/uL (0-0.8); Eosinophils % (auto) 0.4 % (0.0-7.0); Hematocrit 43.9 % (36.0-46.0); Hemoglobin 14.5 g/dL (12.2-16.2); Lymphocytes # (auto) 2.7 10 ^3/uL (0.4-5.4); Lymphocytes % (auto) 27.7 % (10.0-50.0); Mean Corpuscular Hemoglobin 28.1 pg (28.0-32.0); Mean Corpuscular Hgb Conc. 33.1 g/dL (32.0-36.0); Monocytes # (auto) 0.6 10 ^3/uL (0-1.3); Monocytes % (auto) 6.1 % (0.0-12.0); Neutrophils # (auto) 6.5 10 ^3/uL (1.6-8.6); Neutrophils % (auto) 65.4 % (37.0-80.0); Platelet Count (auto) 293 10^3/uL (140-450); Red Blood Cells 5.17 10^6/uL (4.0-5.20); Red Cell Distribution Width 13.8 % (11.8-14.3); White Blood Cell 9.9 10^3/uL (4.4-10.8)
[2024-12-17 19:40] LABS: Urine Blood Negative /uL (Negative); Urine Clarity Turbid (Clear); Urine Color Yellow (Yellow); Urine Hyaline Cast MANY /lpf (0 - 2); Urine Mucus FEW (None Seen); Urine Protein, UAD 1+ (Negative); Urine Specific Gravity 1.023 (1.001-1.035); Urine Squamous Epithelial Cell FEW /hpf (<5); Urine Urobilinogen 2 mg/dL (Negative); Urine WBC 5 /HPF (0-5); Urine pH 5.5 (5.0-9.0)
[2024-12-17 20:00] LABS: Alanine Aminotransferase 16 U/L (7-40); Albumin 4.5 g/dL (3.2-4.8); Alkaline Phosphatase 96 U/L (46-116); Anion Gap 12 (5-15); Aspartate Aminotransferase 16 U/L (13-40); BUN/Creatinine Ratio 11.8 (10.0-20.0); Bilirubin, Total 0.4 mg/dL (0.2-1.0); Blood Urea Nitrogen 20 mg/dL (9-23); Calcium 10.3 mg/dL (8.7-10.4); Carbon Dioxide 22 mmol/L (20-31); Chloride 106 mmol/L (98-107); Magnesium 2.1 mg/dL (1.6-2.6); Potassium 4.6 mmol/L (3.5-5.1); Sodium 140 mmol/L (136-145); Total Protein 7.6 g/dL (5.7-8.2)
[2024-12-17 20:01] LABS: Glucose 157 mg/dL (74-106)
[2024-12-17] MEDS ORDERED: MECL25CH38 PO (21:54)
[2024-12-18 00:15] VITALS: BP 128/50; PULSE 88; RESP 18; TEMP 97.6; O2SAT 98
--- NOTE | 2024-12-18 06:54 | ECG ---
[facility] Test Date: 2024-12-17 Test Time: 18:59:30 Pat Name: CALE SERRANO Department: ED Room: Gender: F Tactical Debriefer Officer: NICHELLE : 1965 Requested By: RITCHIE KAT Order Number: [id number] Reading MD: Measurements Intervals [place] Rate: 97 P: 52 CA: 152 QRS: 1 QRSD: 81 T: 58 QT: 339 QTc: 431 Interpretive Statements Sinus rhythm Low voltage, precordial leads Please click the below link to view image of tracing.
== END 2024-12-18 00:27 | disposition home or self-care (01) ==
LOC: ER 18:39
DX: R42 Dizziness and giddiness (principal); E11.9 Type 2 diabetes mellitus without complications; I10 Essential (primary) hypertension; E78.5 Hyperlipidemia, unspecified; Z88.1 Allergy status to other antibiotic agents
CPT/HCPCS: 36415; 80053; 81001; 82947; 82962; 83735; 84484; 85025; 93005

== ENCOUNTER 2025-03-04 09:39 | Day surgery (SDC) | payer MEDICAID ==
[2025-03-02 10:56] LABS: INR 0.97 (0.9-1.15); Partial Thromboplastin Time 23.5 SEC (24.5-34.5); Prothrombin Time 10.3 sec (9.3-11.8)
[2025-03-02 11:00] LABS: Hematocrit 40.9 % (36.0-46.0); Hemoglobin 13.9 g/dL (12.2-16.2); Mean Corpuscular Hemoglobin 28.4 pg (28.0-32.0); Mean Corpuscular Volume 83.5 fL (80.0-100.0); Nucleated Red Blood Cells % 0.0 %
[2025-03-02 11:14] LABS: Alanine Aminotransferase 24 U/L (7-40); Albumin 4.1 g/dL (3.2-4.8); Alkaline Phosphatase 105 U/L (46-116); Anion Gap 11 (5-15); BUN/Creatinine Ratio 16.3 (10.0-20.0); Blood Urea Nitrogen 15 mg/dL (9-23); Calcium 9.0 mg/dL (8.7-10.4); Carbon Dioxide 22 mmol/L (20-31); Potassium 3.9 mmol/L (3.5-5.1); Sodium 142 mmol/L (136-145); Total Protein 6.7 g/dL (5.7-8.2)
[2025-03-02 11:15] LABS: Bilirubin, Total 0.4 mg/dL (0.2-1.0); Chloride 109 mmol/L (98-107); Glucose 198 mg/dL (74-106)
[2025-03-02 11:17] LABS: Urine Protein, UAD Negative (Negative)
[~2025-03-04] VITALS: Ht 167.6 cm; Wt 93.0 kg
[~2025-03-04 09:39] MED LIST changes: -LEVO500T31 IV; +MECL25CH38 PO; -METF-371; +METF-929 PO
[2025-03-04] MEDS ORDERED: METOCLOPRAMIDE HCL 5MG/ml INJ 2ml VIAL IV ONE (09:40)
[2025-03-04 14:40] VITALS: BP 158/78; TEMP 97.3
[2025-03-04] MEDS ORDERED: ACETAMINOPHEN IV 1000 MG/100ML (10MG/ML) IV ONE (15:30)
[2025-03-04] MEDS ORDERED: CELECOXIB 100 MG CAP PO ONE (15:30)
[2025-03-04] MEDS ORDERED: GABAPENTIN 300 MG CAP PO ONE (15:30)
[2025-03-04] MEDS ORDERED: CELECOXIB 100 MG CAP ONE (15:35)
[2025-03-04] MEDS ORDERED: ACETAMINOPHEN IV 100 ML IV ONE (15:36)
[2025-03-04] MEDS ORDERED: GABAPENTIN 300 MG CAP ONE (15:36)
[2025-03-04] MEDS ORDERED: ONDANSETRON HCL 4 MG/2 ML VIAL ONE (15:40)
[2025-03-04] MEDS ORDERED: KETOROLAC TROMETH 30 MG/ML 1ML VIAL ONE (15:40)
[2025-03-04] MEDS ORDERED: GLYCOPYRROLATE 0.2 MG/ML 1ML VIAL ONE (15:40)
[2025-03-04] MEDS ORDERED: PROPOFOL 10 MG/ML 20 ML IV ONE (15:40)
[2025-03-04] MEDS ORDERED: LIDOCAINE 2% (LOCAL ANESTH.) PF 5ml SDV ONE (15:40)
[2025-03-04] MEDS: ceFAZolin 2 GM/D5W50ml 50 ML IV ONE (15:43)
[2025-03-04] MEDS: LIDOCAINE 1% HCL (LOCAL ANESTH.) INJ 20ML MDV ONE (15:43)
[2025-03-04] MEDS ORDERED: MIDAZOLAM HCL 2MG/2ML 2ml VIAL (1mg/ml) ONE (15:53)
[2025-03-04 16:09] VITALS: PULSE 67; RESP 14; O2SAT 100
[2025-03-04 16:15] VITALS: PULSE 71; RESP 14; O2SAT 100
--- NOTE | 2025-03-04 16:16 | DVHOP2 ---
Operative Report - 2 Report Details Date: 03/04/25 Preop Diagnosis: 1. Left foot metatarsalgia 2. Left foot diabetic ulcer 3. Left foot pain Postop Diagnosis: Same as preop Surgeon: Diogo Castellanos MD Anesthesiologist: See anesthesia Anesthesia: Mac Consent: The patient was informed of the risks and benefits of the procedure. These include but are not limited to complications of anesthesia, postoperative infection, incomplete relief of symptoms, recurrence of symptoms, damage to blood vessels, nerves and tendons, deep venous thrombosis, pulmonary embolism and possible need for repeat surgery in the future. Complications: None Estimated Blood Loss: Minimal Fluids: See anesthesia Findings: Consistent with diagnosis Indications for Surgery: Worsening foot pain Name of Procedure Performed 1. Left 1st metatarsal susan (56278) 2. Left 3rd metatarsal susan (69776) 3. Left 4th metatarsal susan (28584) 4. Left 5th metatarsal susan (01623) 5. Left 1st hammer toe repair (74674) 6. Left EHL tenotomy (47621) Procedure Details Procedure Details: PRE-PROCEDURE INFORMATION: In the pre-op holding area, the extremity to be operated on was clearly marked and the patient verified correct laterality of the marking. The patient was transferred to the OR table and placed in a supine position. A timeout was performed in which identification of the correct patient, procedure, location, and materials was done. The _ foot and leg were prepped and draped in normal sterile fashion. The foot and leg were exsanguinated and the _ tourniquet was inflated to 250 mmHg. DESCRIPTION OF PROCEDURE: Attention was directed to the left 2nd metatarsal head where a stab incision was made. The incision was deepened through blunt and sharp dissection. Care was taken to avoid damage to neurovascular structures throughout dissection. Incision was carried to the level of the 2nd metatarsal head or on fluoroscopy as well as preoperative x-rays, it was noted there was significant plantar flexion of the metatarsal head. Using an MIS bur, the an osteotomy was performed across the neck of the metatarsal head. The metatarsal head was then able to float. It was noted off intraoperative fluoroscopy, there was significant reduction deformity. Attention was directed to the left hallux where hammdaniellee was located was located. A stab incision was made medial to the right hallux. The incision was deepened through blunt and sharp dissection. Care was taken to avoid any ronny rovascular and tendinous structures. Using the Arthrex MIS bur, an osteotomy was performed and correction of the rigid hammertoe was noted. After the bur was used the exostosis was no longer felt clinically. A tenotomy of the EHL was then performed. The incision was closed with a 4-0 nylon. Attention was directed to the left 3rd metatarsal head where a stab incision was made. The incision was deepened through blunt and sharp dissection. Care was taken to avoid damage to neurovascular structures throughout dissection. Incision was carried to the level of the 3rd metatarsal head or on fluoroscopy as well as preoperative x-rays, it was noted there was significant plantar flexion of the metatarsal head. Using an MIS bur, the an osteotomy was performed across the neck of the metatarsal head. The metatarsal head was then able to float. It was noted off intraoperative fluoroscopy, there was significant reduction deformity. Attention was directed to the left 4th metatarsal head where a stab incision was made. The incision was deepened through blunt and sharp dissection. Care was taken to avoid damage to neurovascular structures throughout dissection. Incision was carried to the level of the 4th metatarsal head or on fluoroscopy as well as preoperative x-rays, it was noted there was significant plantar flexion of the metatarsal head. Using an MIS bur, the an osteotomy was perfor med across the neck of the metatarsal head. The metatarsal head was then able to float. It was noted off intraoperative fluoroscopy, there was significant reduction deformity. Attention was directed to the left 5th metatarsal head where a stab incision was made. The incision was deepened through blunt and sharp dissection. Care was taken to avoid damage to neurovascular structures throughout dissection. Incision was carried to the level of the 5th metatarsal head or on fluoroscopy as well as preoperative x-rays, it was noted there was significant plantar flexion of the metatarsal head. Using an MIS bur, the an osteotomy was p erformed across the neck of the metatarsal head. The metatarsal head was then able to float. It was noted off intraoperative fluoroscopy, there was significant reduction deformity. All surgical wounds were irrigated copiously with saline and closed in layers with the aforementioned suture material. A dry sterile dressing was placed on the surgical extremity. The patient was placed in a postop shoe POSTOPERATIVE INFORMATION: The patient tolerated the above noted procedure and anesthesia well and was transferred to the PACU with vital signs stable, and vascular status intact with capillary refill intact to all digits. Postoperative instructions reviewed in detail with the patient with written instructions provided. Patient will return to clinic in approximately 10-14 days for first postoperative visit. Patient has the number of the clinic and was instructed to call prior to that time should any problems, questions, or concerns arise. Condition Good Disposition Home Visit Coding Podiatry Date of Service if different f: Mar 04, 2025 Billing Provider: DIOGO CASTELLANOS DPM Podiatry Common Visit Codes: PROCEDURE ONLY DIOGO CASTELLANOS DPM Mar 04, 2025 16:16
== END 2025-03-04 17:03 | disposition home or self-care (01) ==
LOC: SUR 09:39
PROVIDERS: ATTEND Podiatrist
DX: M77.42 Metatarsalgia, left foot (principal); L97.529 Non-pressure chronic ulcer of other part of left foot with unspecified severity; E11.621 Type 2 diabetes mellitus with foot ulcer; E11.65 Type 2 diabetes mellitus with hyperglycemia; L02.611 Cutaneous abscess of right foot; M86.9 Osteomyelitis, unspecified
CPT/HCPCS: 28285; 28308; 36415; 80053; 81001; 82962; 85025; 85610; 85730; J0690; J1100; J1885; J2003; J2250; J2405; J2704; J2765; L3260; J0131

== ENCOUNTER 2025-03-21 16:57 | Inpatient (IN) | payer MEDICAID ==
[~2025-03-21] VITALS: Ht 167.6 cm; Wt 94.0 kg
--- NOTE | 2025-03-21 18:57 | ED.PDOC ---
Musculoskeletal HPI Comments 55-year-old female who came to ER for left leg pain Patient does have history of diabetes and DVTs. Patient currently not on any blood thinners. Has been having left leg pain for the past few days. TANK done yesterday revealed positive DVT in left leg. Chief Complaint: Extremity Swelling Time Seen by MD: 18:57 Primary Care Provider: APURVA Reviewed Notes: Nurses Notes Allergies: Coded Allergies: Vancomycin (Verified Allergy, Unknown, 01/30/24) RASH AND ITCHING Home Meds Active Scripts Meclizine HCl (Meclizine) 25 Mg Chw, 25 MG PO Q6HP PRN, #30 CHW Prov:RITCHIE KAT MD 12/17/24 Reported Medications Metformin HCl (Metformin Hydrochloride) 1,000 Mg Tab, 1000 MG PO BID, TAB 02/27/25 Insulin Aspart Protamine & Asp (Insulin Aspart Protamine/ (70-30) 100 Unit/ml) 1 Inj Inj, 16 UNITS SC QPM, INJ 09/12/19 Insulin Aspart Protamine & Asp (Novolog Mix 70/30 Prefill (70-30) 100 Unit/ml) 1 Inj Inj, 56 UNITS SC QAM, INJ 09/12/19 Aspirin (EQ ASPIRIN ADULT LOW DOSE) 81 Mg Tab 09/12/19 Atorvastatin Calcium (ATORVASTATIN CALCIUM) 40 Mg Tab 09/12/19 Lisinopril (Lisinopril) 10 Mg Tab 09/12/19 Information Source: Patient Mode of Arrival: Ambulatory Location: Left Extremity Location: Leg Timing: Days Severity: Moderate Able to Move Extremity: Yes Bear Weight: Limited Pain: Moderate Hand Dominance: Right Mechanism: Spontaneous Circumstances: Spontaneous Onset of Symptoms: Spontaneous Symptoms: Swelling, Pain Associated signs and symptoms: Leg pain (Left) Past Medical History PAST MEDICAL HISTORY: DM, High Lipids, HTN Past Medical History (Other): DVTs. 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 Family History Family History: Reviewed,noncontributory to illness Social History Smoker: Non-Smoker Alcohol: Denies ETOH Use Drugs: Denies Drug Use Lives In: Home Constitutional: denies: chills, diaphoresis, fatigue, fever, malaise, sweats, weakness, others EENTM: denies: blurred vision, double vision, ear bleeding, ear discharge, ear drainage, ear pain, ear ringing, eye pain, eye redness, hearing loss, mouth pain, mouth swelling, nasal discharge, nose bleeding, nose congestion, nose pain, photophobia, tearing, throat pain, throat swelling, voice changes, others Respiratory: denies: cough, hemoptysis, orthopnea, SOB at rest, shortness of breath, SOB with excertion, stridor, wheezing, others Cardiovascular: denies: chest pain, dizzy spells, diaphoresis, Dyspnea on exertion, edema, irregular heart beat, left arm pain, lightheadedness, palpitations, PND, syncope, others Gastrointestinal: denies: abdomen distended, abdominal pain, blood streaked bowels, constipated, diarrhea, dysphagia, difficulty swallowing, hematemesis, melena, nausea, poor appetite, poor fluid intake, rectal bleeding, rectal pain, vomiting, others Genitourinary: denies: abnormal vagina bleeding, burning, dyspareunia, dysuria, flank pain, frequency, hematuria, incontinence, pain, , vagina discharge, urgency, others Neurological: denies: dizziness, fainting, headache, left sided numbness, left sided weakness, numbness, paresthesia, pre-existing deficit, right sided numbness, right sided weakness, seizure, speech problems, tingling, tremors, weakness, others Musculoskeletal: reports: others (Left leg pain); denies: back pain, gout, joint pain, joint swelling, muscle pain, muscle stiffness, neck pain Integumetry: denies: bruises, change in color, change in hair/nails, dryness, laceration, lesions, lumps, rash, wounds, others Allergic/Immunocompromised: denies: Difficulty Healing, Frequent Infections, Hives, Itching, others Hematologic/Lymphatic: denies: anemia, blood clots, easy bleeding, easy bruising, swollen glands, others Endocrine: denies: excessive hunger, excessive sweating, excessive thirst, excessive urination, flushing, intolerance to cold, intolerance to heat, unexplained weight gain, unexplained weight loss, others Psychiatric: denies: anxiety, bipolar disorder, depression, hopeless, panic disorder, schizophrenia, sleepless, suicidal, others Physical Exam General Appearance: No Apparent Distress, Normal HEENT: Normal ENT Inspection, Pharynx Normal, TMs Normal Neck: Full Range of Motion, Non-Tender, Normal, Normal Inspection Respiratory: Chest Non-Tender, Lungs Clear, No Accessory Muscle Use, No Respiratory Distress, Normal Breath Sounds Cardiovascular: No Edema, No JVD, No Murmur, No Gallop, Normal Peripheral Pulses, Regular Rate/Rhythm Breast Exam: Deferred Gastrointestinal: No Organomegaly, Non Tender, No Pulsatile Mass, Normal Bowel Sounds, Soft Genitalia: Deferred Pelvic: Deferred Rectal: Deferred Extremities: No calf tenderness, Normal capillary refill, Normal range of motion, Non-tender, Pedal edema (+2 pedal edema), Other (Stasis dermatitis) Musculoskeletal : Apperance: Normal Neurologic: Alert, education sales consultant II-XII nml as Tested, No Motor Deficits, Normal Affect, Normal Mood, No Sensory Deficits Cerebellar Function: Normal Reflexes: Normal Skin: Dry, Normal Color, Warm Lymphatic: No Adenopathy Was a procedure done? Was a procedure done?: No Differential Diagnosis EXT Differential Diagnosis: Cellulitis, CHF, Deep Vein Thrombosis, Compartment Syndrome, Fracture, Sprain, Contusion, Strain, Arthritis, Other (dvt) X-Ray, Labs, Meds, VS Vital Signs Date Time Temp Pulse Resp B/P (MAP) Pulse Ox O2 Delivery O2 Flow Rate FiO2 03/21/25 16:58 98.7 96 18 108/50 97 98.7 Lab Test 03/21/25 19:14 Range/Units White Blood Count 9.5 4.4-10.8 10^3/uL Red Blood Count 4.84 4.0-5.20 10^6/uL Hemoglobin 13.7 12.2-16.2 g/dL Hematocrit 40.3 36.0-46.0 % Mean Corpuscular Volume 83.1 80.0-100.0 fL Mean Corpuscular Hemoglobin 28.2 28.0-32.0 pg Mean Corpuscular Hemoglobin Concent 34.0 32.0-36.0 g/dL Red Cell Distribution Width 14.1 11.8-14.3 % Platelet Count 202 140-450 10^3/uL Mean Platelet Volume 7.4 6.9-10.8 fL Neutrophils (%) (Auto) 58.2 37.0-80.0 % Lymphocytes (%) (Auto) 31.6 10.0-50.0 % Monocytes (%) (Auto) 8.0 0.0-12.0 % Eosinophils (%) (Auto) 1.3 0.0-7.0 % Basophils (%) (Auto) 0.9 0.0-2.0 % Neutrophils # (Auto) 5.6 1.6-8.6 10 ^3/uL Lymphocytes # (Auto) 3.0 0.4-5.4 10 ^3/uL Monocytes # (Auto) 0.8 0-1.3 10 ^3/uL Eosinophils # (Auto) 0.1 0-0.8 10 ^3/uL Basophils # (Auto) 0.1 0-0.2 10 ^3/uL Nucleated Red Blood Cells 0.2 % Sodium Level 140 136-145 mmol/L Potassium Level 4.1 3.5-5.1 mmol/L Chloride Level 106 98-107 mmol/L Carbon Dioxide Level 21 20-31 mmol/L Anion Gap 13 5-15 Blood Urea Nitrogen 17 9-23 mg/dL Creatinine 1.10 H 0.550-1.02 mg/dL Glomerular Filtration Rate Calc 58 >90 mL/min BUN/Creatinine Ratio 15.5 10.0-20.0 Serum Glucose 129 H 74-106 mg/dL Calcium Level 9.3 8.7-10.4 mg/dL Left lower extremity venous duplex Clinical History: R/O DVT, LT LE Comparison: MRI MRI L FOOT WO CONTRAST on DOS: 02/23/23, MRI MRI R FOOT WO CONTRAST on DOS: 02/23/23, XY L ANKLE 3 VIEW on DOS: 01/26/23, XY R ANKLE 3 VIEW on DOS: 01/26/23, XY L FOOT 3 VIEW XRAY on DOS: 01/26/23 Technique: Duplex Doppler evaluation of the deep venous system of the left lower extremity from the common femoral vein to the popliteal vein including color Doppler and spectral/pulsed waveform analysis was performed. Findings: Positive DVT from the left common femoral vein to superficial femoral vein distally Preliminary results given to MD and nurse Patient is sent to the emergency room IMPRESSION: 1. Positive DVT study Time of 1ST Reevaluation: 18:54 Reevaluation 1ST: Unchanged Patient Education/Counseling: Diagnosis, Treatment, Prognosis, Need For Follow Up Family Education/Counseling: No Family Present Comments Patient has a history of DVTs, on the right leg. She also has a filter inferior vena cava filter placed 18 years ago. However without any triggers she now has a DVT on the left lower leg. Patient will be admitted for further workup of the etiology of this new DVT and I will start her on Lovenox. Departure 1 Departure Time of Disposition: 21:03 Impression: Primary Impression: DVT (deep vein thrombosis) in Disposition: ADMITTED INPATIENT Admit to: Med Surg Condition: Stable Discharged With: Self Critical Care Note Critical Care Time?: No Stability Stability form required: No Heart Score Heart Score: Heart Score Response (Comments) Value History N/A 0 EKG N/A 0 Age N/A 0 Risk Factors N/A 0 Troponin N/A 0 Total 0 I personally scribed for KYLE SANTIAGO MD ([email or web address]) on 03/21/25 at 18:57. Electronically submitted by Keagan Fraire ([facility] [place]). KYLE SANTIAGO MD Mar 21, 2025 18:57
[2025-03-21 19:31] LABS: Hematocrit 40.3 % (36.0-46.0); Hemoglobin 13.7 g/dL (12.2-16.2); Mean Corpuscular Hemoglobin 28.2 pg (28.0-32.0); Mean Corpuscular Volume 83.1 fL (80.0-100.0); Nucleated Red Blood Cells % 0.2 %
[2025-03-21 20:06] LABS: Chloride 106 mmol/L (98-107); Potassium 4.1 mmol/L (3.5-5.1); Sodium 140 mmol/L (136-145)
[2025-03-21 20:07] LABS: Anion Gap 13 (5-15); Calcium 9.3 mg/dL (8.7-10.4); Carbon Dioxide 21 mmol/L (20-31)
[2025-03-21 20:12] LABS: BUN/Creatinine Ratio 15.5 (10.0-20.0); Blood Urea Nitrogen 17 mg/dL (9-23)
[2025-03-21 20:13] LABS: Glucose 129 mg/dL (74-106)
[2025-03-21] MEDS: ENOXAPARIN SOD 100 MG/1 ML SYRINGE SC ONE (21:07)
[2025-03-21] MEDS ORDERED: DOCUSATE SOD 100 MG CAP PO PRN (22:00)
[2025-03-21] MEDS ORDERED: ACETAMINOPHEN 325 MG TAB PO PRN (22:00)
[2025-03-21] MEDS ORDERED: ONDANSETRON HCL 4 MG/2 ML VIAL IV PRN (22:00)
[2025-03-21] MEDS ORDERED: DEXTROSE (50%) 50ML SYRG IV PRN (22:00)
--- NOTE | 2025-03-21 22:19 | DVHHP2 ---
History of Present Illness Reason for Visit: Left lower extremity DVT History of Present Illness The patient is a 55-year-old female with past medical history of chronic leg cellulitis, diabetes mellitus, DVTs, hyperlipidemia, and hypertension who presented to [facility] ED with complaint of left leg pain. Patient reports she has been experiencing left leg pain for the past few days, currently not on any blood thinner, extremity venous study done yesterday revealed positive DVT in the left leg. Patient was started on Lovenox 90 mg, please see medication orders section in the computer. Laboratory data shows WBC 9.5, platelets 202, sodium 140, potassium 4.1, BUN 17, creatinine 1.10, GFR 58, g lucose 129, calcium 9.3, blood pressure 152/64, heart rate 79, temperature 98.3 F, O2 saturation 99% on room. On my assessment, patient denied chest pain, no headache, no dizziness, no shortness of breaths, no nausea, no vomiting, no fever, no chills. Patient was admitted for further evaluation and management of DVT. Past Medical History DM, High Lipids, HTN, DVTs. Chronic leg cellulitis Past Surgical History Right foot surgery Family History Reviewed, noncontributory to the management of this case. Past Social History The patient lives at home, denies smoking, alcohol or illicit drugs abuse. Review of Systems Constitutional: No: Fever, Chills, Sweats, Weakness, Malaise, Other Eyes: No: Pain, Vision change, Conjunctivae inflammation, Eyelid inflammation, Other, Redness ENT: No: Ear pain, Ear discharge, Nose pain, Nose discharge, Nose congestion, Mouth pain, Mouth swelling, Throat pain, Throat swelling, Other Respiratory: No: Cough, Dry, Shortness of breath, SOB with excertion, Wheezing, Hemoptysis, Pleuritic Pain, Sputum, Wheezing, Other Cardiovascular: No: Chest Pain, Palpitations, Orthopnea, Paroxysmal Noc. Dyspnea, Edema, Lt Headedness, Other Gastrointestinal: No: Nausea, Vomiting, Abdominal Pain, Diarrhea, Constipation, Melena, Hematochezia, Other Genitourinary: No Dysuria, No Frequency, No Incontinence, No Hematuria, No Retention, No Other Musculoskeletal: other (Right foot surgery 2 weeks ago), leg pain (Left); No: neck pain, shoulder pain, arm pain, back pain, hand pain, foot pain Skin: Other (Right foot wound); No: Rash, Lesions, Jaundice, Bruising Neurological: No: Weakness, Numbness, Incoordination, Change in speech, Confusion, Seizures, Other Allergies: Coded Allergies: Vancomycin (Verified Allergy, Unknown, 01/30/24) RASH AND ITCHING Medications Current Medications Medications Dose Ordered Sig/Mely Route Start Time Stop Time Status Last Admin Dose Admin Atorvastatin Calcium 20 mg HS PO 03/21/25 22:00 Lisinopril 10 mg DAILY PO 03/22/25 10:00 Enoxaparin Sodium 90 mg Q12HR SC 03/22/25 10:00 Famotidine 20 mg Q12HR IV 03/21/25 22:00 Diagnostic Test (Pha) 1 strip IQ4HR 03/22/25 00:00 Insulin Human Regular IQ4HR SC 03/22/25 00:00 Dextrose 50 ml UD PRN IV 03/21/25 22:00 Sodium Chloride 10 ml Q8HR IV 03/21/25 22:00 Acetaminophen/ Hydrocodone Bitart 1 tab Q4HP PRN PO 03/21/25 22:00 Ondansetron HCl 4 mg Q4HP PRN IV 03/21/25 22:00 Docusate Sodium 100 mg BIDPRN PRN PO 03/21/25 22:00 Acetaminophen 650 mg Q6HP PRN PO 03/21/25 22:00 Exam Vital Signs Vital Signs Date Time Temp Pulse Resp B/P (MAP) Pulse Ox O2 Delivery O2 Flow Rate FiO2 03/21/25 21:06 98.3 79 16 152/64 (93) 99 98.3 General Appearance: Alert, Oriented X3, Cooperative, No acute distress HEENT: Atraumatic, PERRLA, EOMI, Mucous membr. moist/pink Respiratory: Normal air movement Cardiovascular: Regular rate, Normal S1, Normal S2, No murmurs Abdominal: Normal bowel sounds, Soft, No tenderness, No hepatospenomegaly, No masses Extremities: No clubbing, No cyanosis, No edema, Normal pulses, Other (Lower extremity tenderness) Skin: No rashes, No significant lesion Neuro: Normal gait, Normal speech, Strength at 5/5 X4 ext, Normal tone, Sensation intact, Cranial nerves 3-12 NL, Reflexes 2+ Psych/Mental Status: Mental status NL, Mood NL Labs/Xrays Labs Test 03/21/25 19:14 Range/Units White Blood Count 9.5 4.4-10.8 10^3/uL Red Blood Count 4.84 4.0-5.20 10^6/uL Hemoglobin 13.7 12.2-16.2 g/dL Hematocrit 40.3 36.0-46.0 % Mean Corpuscular Volume 83.1 80.0-100.0 fL Mean Corpuscular Hemoglobin 28.2 28.0-32.0 pg Mean Corpuscular Hemoglobin Concent 34.0 32.0-36.0 g/dL Red Cell Distribution Width 14.1 11.8-14.3 % Platelet Count 202 140-450 10^3/uL Mean Platelet Volume 7.4 6.9-10.8 fL Neutrophils (%) (Auto) 58.2 37.0-80.0 % Lymphocytes (%) (Auto) 31.6 10.0-50.0 % Monocytes (%) (Auto) 8.0 0.0-12.0 % Eosinophils (%) (Auto) 1.3 0.0-7.0 % Basophils (%) (Auto) 0.9 0.0-2.0 % Neutrophils # (Auto) 5.6 1.6-8.6 10 ^3/uL Lymphocytes # (Auto) 3.0 0.4-5.4 10 ^3/uL Monocytes # (Auto) 0.8 0-1.3 10 ^3/uL Eosinophils # (Auto) 0.1 0-0.8 10 ^3/uL Basophils # (Auto) 0.1 0-0.2 10 ^3/uL Nucleated Red Blood Cells 0.2 % Sodium Level 140 136-145 mmol/L Potassium Level 4.1 3.5-5.1 mmol/L Chloride Level 106 98-107 mmol/L Carbon Dioxide Level 21 20-31 mmol/L Anion Gap 13 5-15 Blood Urea Nitrogen 17 9-23 mg/dL Creatinine 1.10 H 0.550-1.02 mg/dL Glomerular Filtration Rate Calc 58 >90 mL/min BUN/Creatinine Ratio 15.5 10.0-20.0 Serum Glucose 129 H 74-106 mg/dL Calcium Level 9.3 8.7-10.4 mg/dL PATIENT: ZACHCARLOSCALE NACCT: [id number] UNIT: [id number] : 1965 LOC: PCP RAD ROOM / BED: / AGE / SEX: 59 / F ADM STATUS: REG CLI SERVICE 0000 ORDERING PHYSICIAN: KELLY CASTELLANOS DPM PROCEDURE(s): LLDVT - LT Lower DVT REASON: R/O DVT, LT LE ORDER NUMBER(s): [id number], ACCESSION NUMBER(s): [id number] Left lower extremity venous duplex Clinical History: R/O DVT, LT LE Comparison: MRI MRI L FOOT WO CONTRAST on DOS: 02/23/23, MRI MRI R FOOT WO CONT RAST on DOS: 02/23/23, XY L ANKLE 3 VIEW on DOS: 01/26/23, XY R ANKLE 3 VIEW on DOS: 01/26/23, XY L FOOT 3 VIEW XRAY on DOS: 01/26/23 Technique: Duplex Doppler evaluation of the deep venous system of the left lower extremity from the common femoral vein to the popliteal vein including color Doppler and spectral/pulsed waveform analysis was performed. Findings: Positive DVT from the left common femoral vein to superficial femoral vein distally Preliminary results given to MD and nurse Patient is sent to the emergency room IMPRESSION: 1. Positive DVT study SEPSIS Sepsis Screen Date sepsis recognized/suspect: Mar 21, 2025 Time Sepsis recognized/suspect: 1700 Recent Procedure: No On Antibiotic Therapy: No Respiratory Rate >20: No Heart Rate >90: No Temp<36 C (96.8 F) or >38.3 C: No SBP <90 or MAP <65 mmHG: No New Acute Mental Status Change: No Is the patient on CPAP, BIPAP,: No Physician Orders Atorvastatin (Lipitor) (03/21/25 22:00) Lisinopril Tablet (Zestril Tablet) (03/22/25 10:00) Enoxaparin Sodium (Lovenox) (03/22/25 10:00) Famotidine Injection (Pepcid Injection) (03/21/25 22:00) Consistent Carb(Ccho)Diabetes (03/22/25 Breakfast) Glucose Blood (Accu-Chek Comfort Curve T (03/22/25 00:00) Insulin R (Human) (Insulin R) (03/22/25 00:00) Dextrose 50% Syringe (03/21/25 22:00) Allergies (03/21/25 21:51) Code Status (03/21/25 21:51) Sodium Chloride Lock (Saline Lock Ns) (03/21/25 22:00) Oxygen Per Hour (03/21/25 21:51) Hydrocodone-Acet 5/325mg Tab ([place]anton 5/32 (03/21/25 22:00) Ondansetron Hcl (Zofran) (03/21/25 22:00) Docusate Sodium Capsule (Colace Capsule) (03/21/25 22:00) Complete Blood Count (03/22/25 04:00) Comprehensive Metabolic Panel (03/22/25 04:00) Condition: Serious (03/21/25 21:51) Acetaminophen Tablet (Tylenol Tablet) (03/21/25 22:00) Bedrest With Bathroom Privileg (03/21/25 21:51) Maintain Bed Rest (03/21/25 21:51) Sequential Compression Device (03/21/25 ) Admit (03/21/25 22:17) Nitroglycerin Sublingual (Ntrostat Subli (03/21/25 22:30) Morphine Sulfate Injection (03/21/25 22:30) Stat Ekg For Chest Pain (03/21/25 22:17) Notify Md Of Changes From Base (03/21/25 22:17) Compensation Intern For 24 Hours (03/21/25 22:17) Emergency Dysrhythmia Protocol (03/21/25 22:17) Rhythm Strips Once Every Shift (03/21/25 22:17) Oxygen By Nasal Cannula (03/21/25 22:17) Vital Signs Date Time Temp Pulse Resp B/P (MAP) Pulse Ox O2 Delivery O2 Flow Rate FiO2 03/21/25 21:06 98.3 79 16 152/64 (93) 99 98.3 03/21/25 16:58 98.7 96 18 108/50 97 98.7 Laboratory Tests Test 03/21/25 19:14 White Blood Count 9.5 10^3/uL (4.4-10.8) Medications Medications Dose Ordered Sig/Mely Route Start Time Stop Time Status Last Admin Dose Admin Enoxaparin Sodium 90 mg ONCE ONCE SC 03/21/25 20:45 03/21/25 20:55 DC 03/21/25 21:07 90 MG Assessment/Plan Assessment/Plan Deep vein thrombosis of left lower extremity Diabetes mellitus with hyperglycemia Plan 1. Admit to telemetry unit 2. Breathing treatment 3. Pain control management 4. Management of fluids and electrolytes 5. Consultation for hospitalist 6. Diagnostic tests extremity venous study 7. DVT prophylaxis-on Lovenox 8. Repeat labs CBC, CMP in a.m. 9. Continue with current medical management 10. Treatment plan discussed with patient and RN. Patient verbalized understanding. Plan discussed with: Patient, Other (RN) My Orders Orders - CECI PATEL DNP Procedure Category Date Status Time Atorvastatin (Lipitor) PHA 03/21/25 In Process 22:00 Lisinopril Tablet PHA 03/22/25 In Process (Zestril Tablet) 10:00 Enoxaparin Sodium PHA 03/22/25 In Process (Lovenox) 10:00 Famotidine Injection PHA 03/21/25 In Process (Pepcid Injection) 22:00 Consistent DIET 03/22/25 Transmitted Carb(Ccho)Diabetes Breakfast Glucose Blood PHA 03/22/25 In Process (Accu-Chek Comfort 00:00 Insulin R (Human) PHA 03/22/25 In Process (Insulin R) 00:00 Dextrose 50% Syringe PHA 03/21/25 In Process 22:00 Allergies MELISSA 03/21/25 In Process 21:51 Code Status CODE 03/21/25 Transmitted 21:51 Sodium Chloride Lock PHA 03/21/25 In Process (Saline Lock Ns) 22:00 Oxygen Per Hour RT 03/21/25 Transmitted 21:51 Hydrocodone-Acet PHA 03/21/25 In Process 5/325mg Tab ([place] 22:00 Ondansetron Hcl PHA 03/21/25 In Process (Zofran) 22:00 Docusate Sodium PHA 03/21/25 In Process Capsule (Colace 22:00 Complete Blood Count LAB 03/22/25 Verified 04:00 Comprehensive LAB 03/22/25 Verified Metabolic Panel 04:00 Condition: Serious MELISSA 03/21/25 In Process 21:51 Acetaminophen Tablet PHA 03/21/25 In Process (Tylenol Tablet) 22:00 Bedrest With Bathroom MELISSA 03/21/25 In Process Privileg 21:51 Maintain Bed Rest MELISSA 03/21/25 In Process 21:51 Sequential MELISSA 03/21/25 In Process Compression Device Admit ADMIT 03/21/25 Verified 22:17 Nitroglycerin [facility] 03/21/25 Verified Sublingual (Ntrostat 22:30 Morphine Sulfate [facility] 03/21/25 Verified Injection 22:30 Stat Ekg For Chest [facility] 03/21/25 Verified Pain 22:17 Notify Md Of Changes [facility] 03/21/25 Verified From Base 22:17 Compensation Intern For [facility] 03/21/25 Verified 24 Hours 22:17 Emergency Dysrhythmia [facility] 03/21/25 Verified Protocol 22:17 Rhythm Strips Once [facility] 03/21/25 Verified Every Shift 22:17 Oxygen By Nasal RT 03/21/25 Verified Cannula 22:17 Problem List: (1) Deep vein thrombosis of left lower extremity (2) Diabetes mellitus with hyperglycemia Date of Service: Mar 21, 2025 Billing Provider: CECI PATEL DNP Common Visit Codes: [id number] INP/OBS CARE (HIGH) CECI PATEL DNP Mar 21, 2025 22:19
[2025-03-21] MEDS ORDERED: NITROGLYCERIN 0.4 MG SL TAB SL PRN (22:30)
[2025-03-21] MEDS ORDERED: MORPHINE SULFATE INJ 2 MG/ml SYRG IV PRN (22:30)
[2025-03-21] MEDS: ATORVASTATIN 20 MG TAB PO SCH (22:51)
[2025-03-21] MEDS: SODIUM CHLOR 0.9% PF (SALINE LOCK) 10ML VIAL/SYR IV SCH (23:23)
[2025-03-21] MEDS: FAMOTIDINE (10MG/ML) 2ML VL IV SCH (23:23)
[2025-03-22] MEDS: ACCU-CHEK COMFORT CURVE STRIP VI SCH (00:20)
[2025-03-22] MEDS: InsuLIN REG 1unit/0.01ml Soln (100units/ml) SC SCH (00:20)
[2025-03-22 05:47] LABS: Hematocrit 40.4 % (36.0-46.0); Hemoglobin 13.3 g/dL (12.2-16.2); Mean Corpuscular Hemoglobin 28.7 pg (28.0-32.0); Mean Corpuscular Volume 87.5 fL (80.0-100.0); Nucleated Red Blood Cells % 0.1 %
[2025-03-22 06:20] LABS: Alanine Aminotransferase 12 U/L (7-40); Albumin 4.1 g/dL (3.2-4.8); Alkaline Phosphatase 82 U/L (46-116); Anion Gap 11 (5-15); BUN/Creatinine Ratio 7.3 (10.0-20.0); Bilirubin, Total 0.5 mg/dL (0.2-1.0); Calcium 9.3 mg/dL (8.7-10.4); Potassium 3.7 mmol/L (3.5-5.1); Sodium 137 mmol/L (136-145); Total Protein 7.3 g/dL (5.7-8.2)
[2025-03-22 06:23] LABS: Blood Urea Nitrogen 7 mg/dL (9-23); Carbon Dioxide 18 mmol/L (20-31); Chloride 108 mmol/L (98-107); Glucose 172 mg/dL (74-106)
[2025-03-22] MEDS: LISINOPRIL 5 MG TAB PO SCH (10:06)
[2025-03-22] MEDS: ENOXAPARIN SOD 100 MG/1 ML SYRINGE SC SCH (10:06)
--- NOTE | 2025-03-22 13:27 | DVHPN2 ---
Reviewed: Care Plan, H&P, Labs, Medications, Previous Orders, Radiology Changes from previous H/P or p: No Changes Eyes: No Pain, No Vision change, No Conjunctivae inflammation, No Eyelid inflammation, No Other, No Redness ENT: No Ear pain, No Ear discharge, No Nose pain, No Nose discharge, No Nose congestion, No Mouth pain, No Mouth swelling, No Throat pain, No Throat swelling, No Other Cardiovascular: No Chest Pain, No Palpitations, No Orthopnea, No Paroxysmal Noc. Dyspnea, No Edema, No Lt Headedness, No Other Respiratory: No Cough, No Dry, No Shortness of breath, No SOB with excertion, No Wheezing, No Hemoptysis, No Pleuritic Pain, No Sputum, No Other Gastrointestinal: No Nausea, No Vomiting, No Abdominal Pain, No Diarrhea, No Constipation, No Melena, No Hematochezia, No Other Genitourinary: No Dysuria, No Frequency, No Incontinence, No Hematuria, No Retention, No Other Musculoskeletal: other (Right foot surgery 2 weeks ago); No neck pain, No shoulder pain, No arm pain, No back pain, No hand pain; leg pain (Left); No foot pain Skin: No Rash, No Lesions, No Jaundice, No Bruising; Other (Right foot wound) Objective Vitals Vital Signs Date Time Temp Pulse Resp B/P (MAP) Pulse Ox O2 Delivery O2 Flow Rate FiO2 03/22/25 10:06 120/40 03/22/25 10:00 73 19 97 03/22/25 08:00 97.6 97.6 03/22/25 07:30 Room Air* 0 21 Medications Current Medications Medications Dose Ordered Sig/Mely Route Start Time Stop Time Status Last Admin Dose Admin Atorvastatin Calcium 20 mg HS PO 03/21/25 22:00 03/21/25 22:51 20 MG Lisinopril 10 mg DAILY PO 03/22/25 10:00 03/22/25 10:06 10 MG Enoxaparin Sodium 90 mg Q12HR SC 03/22/25 10:00 03/22/25 10:06 90 MG Famotidine 20 mg Q12HR IV 03/21/25 22:00 03/22/25 10:05 20 MG Diagnostic Test (Pha) 1 strip IQ4HR 03/22/25 00:00 03/22/25 11:57 1 STRIP Insulin Human Regular IQ4HR SC 03/22/25 00:00 03/22/25 11:58 6 UNITS Dextrose 50 ml UD PRN IV 03/21/25 22:00 Sodium Chloride 10 ml Q8HR IV 03/21/25 22:00 03/22/25 06:25 10 ML Acetaminophen/ Hydrocodone Bitart 1 tab Q4HP PRN PO 03/21/25 22:00 Ondansetron HCl 4 mg Q4HP PRN IV 03/21/25 22:00 Docusate Sodium 100 mg BIDPRN PRN PO 03/21/25 22:00 Acetaminophen 650 mg Q6HP PRN PO 03/21/25 22:00 Nitroglycerin 0.4 mg Q5MINP PRN SL 03/21/25 22:30 Morphine Sulfate 2 mg Q30M PRN IV 03/21/25 22:30 Laboratory Results Laboratory Tests 03/22/25 05:22 Chemistry Test 03/21/25 19:14 03/22/25 05:22 Calcium Level 9.3 mg/dL (8.7-10.4) 9.3 mg/dL (8.7-10.4) Albumin 4.1 g/dL (3.2-4.8) Total Protein 7.3 g/dL (5.7-8.2) LFT Test 03/22/25 05:22 Alanine Aminotransferase (ALT) 12 U/L (7-40) Alkaline Phosphatase 82 U/L (46-116) Aspartate Amino Transferase (AST) 17 U/L (13-40) Total Bilirubin 0.5 mg/dL (0.2-1.0) Labs and/or images reviewed: Labs reviewed by me, Image(s) reviewed by me Assessment/Plan Assessment/Plan DVT left lower extremity: Lovenox 1 milligram/kilos subQ b.i.d. History of DVT History of cellulitis lower extremities Diabetes Hypertension Hypercholesterolemia Time Spent 50 minutes Advanced care planning time 20 minutes Patient is full code Plan discussed with: Patient Date of Service: Mar 22, 2025 Billing Provider: OMAR ADDISON MD Common Visit Codes: [id number] INP/OBS CARE(HIGH) Secondary Visit Codes: [id number] CARE PLAN 30 MINUTES OMAR ADDISON MD Mar 22, 2025 13:27
[2025-03-22 19:35] VITALS: RESP 20; O2SAT 99
[2025-03-23 04:41] VITALS: BP 119/50; PULSE 68; RESP 15; TEMP 97.9; O2SAT 99
[2025-03-23] MEDS: ACCU-CHEK COMFORT CURVE STRIP VI SCH (11:30)
[2025-03-23] MEDS: InsuLIN REG 1unit/0.01ml Soln (100units/ml) SC SCH (11:32)
--- NOTE | 2025-03-23 14:48 | DVHPN2 ---
Reviewed: Care Plan, H&P, Labs, Medications, Previous Orders, Radiology Changes from previous H/P or p: No Changes Eyes: No Pain, No Vision change, No Conjunctivae inflammation, No Eyelid inflammation, No Other, No Redness ENT: No Ear pain, No Ear discharge, No Nose pain, No Nose discharge, No Nose congestion, No Mouth pain, No Mouth swelling, No Throat pain, No Throat swelling, No Other Cardiovascular: No Chest Pain, No Palpitations, No Orthopnea, No Paroxysmal Noc. Dyspnea, No Edema, No Lt Headedness, No Other Respiratory: No Cough, No Dry, No Shortness of breath, No SOB with excertion, No Wheezing, No Hemoptysis, No Pleuritic Pain, No Sputum, No Other Gastrointestinal: No Nausea, No Vomiting, No Abdominal Pain, No Diarrhea, No Constipation, No Melena, No Hematochezia, No Other Genitourinary: No Dysuria, No Frequency, No Incontinence, No Hematuria, No Retention, No Other Musculoskeletal: other (Right foot surgery 2 weeks ago); No neck pain, No shoulder pain, No arm pain, No back pain, No hand pain; leg pain (Left); No foot pain Skin: No Rash, No Lesions, No Jaundice, No Bruising; Other (Right foot wound) Objective Vitals Vital Signs Date Time Temp Pulse Resp B/P (MAP) Pulse Ox O2 Delivery O2 Flow Rate FiO2 03/23/25 14:00 81 14 135/60 (85) 98 03/23/25 08:00 98.4 98.4 03/23/25 08:00 Room Air* 0 21 Medications Current Medications Medications Dose Ordered Sig/Mely Route Start Time Stop Time Status Last Admin Dose Admin Atorvastatin Calcium 20 mg HS PO 03/21/25 22:00 03/22/25 21:46 20 MG Lisinopril 10 mg DAILY PO 03/22/25 10:00 03/23/25 10:43 10 MG Enoxaparin Sodium 90 mg Q12HR SC 03/22/25 10:00 03/23/25 10:43 90 MG Famotidine 20 mg Q12HR IV 03/21/25 22:00 03/23/25 10:43 20 MG Dextrose 50 ml UD PRN IV 03/21/25 22:00 Sodium Chloride 10 ml Q8HR IV 03/21/25 22:00 03/23/25 14:04 10 ML Acetaminophen/ Hydrocodone Bitart 1 tab Q4HP PRN PO 03/21/25 22:00 Ondansetron HCl 4 mg Q4HP PRN IV 03/21/25 22:00 Docusate Sodium 100 mg BIDPRN PRN PO 03/21/25 22:00 Acetaminophen 650 mg Q6HP PRN PO 03/21/25 22:00 Nitroglycerin 0.4 mg Q5MINP PRN SL 03/21/25 22:30 Morphine Sulfate 2 mg Q30M PRN IV 03/21/25 22:30 Diagnostic Test (Pha) 1 strip ACHS 03/23/25 11:30 03/23/25 11:30 1 STRIP Insulin Human Regular ACHS SC 03/23/25 11:30 03/23/25 11:32 6 UNITS Laboratory Results Laboratory Tests 03/22/25 05:22 Labs and/or images reviewed: Labs reviewed by me, Image(s) reviewed by me Assessment/Plan Assessment/Plan DVT left lower extremity: Lovenox 1 milligram/kilos subQ b.i.d. History of DVT cellulitis lower extremities clindamycin 450 mg PO TID Diabetes insulin sliding scale Hypertension Hypercholesterolemia Time Spent 50 minutes Advanced care planning time 20 minutes Patient is full code Plan discussed with: Patient Date of Service: Mar 23, 2025 Billing Provider: OMAR ADDISON MD Common Visit Codes: [id number] INP/OBS CARE(HIGH) OMAR ADDISON MD Mar 23, 2025 14:48
[2025-03-23] MEDS: CLINDAMYCIN HCL 150 MG CAP PO SCH (15:30)
[2025-03-23 17:37] VITALS: BP 114/68; PULSE 72; RESP 20; TEMP 98; O2SAT 99
[2025-03-23 20:00] VITALS: PULSE 75; RESP 16
[2025-03-23 21:00] VITALS: BP 126/61; PULSE 69; RESP 15; TEMP 97.9; O2SAT 100
[2025-03-24] VITALS (9 sets, daily range): BP systolic 105–144; BP diastolic 51–76; PULSE 67–91; RESP 16–20; TEMP 97.9–98.2; O2SAT 94–99
--- NOTE | 2025-03-24 11:07 | DVHPN2 ---
Reviewed: Care Plan, H&P, Labs, Medications, Previous Orders, Radiology Changes from previous H/P or p: No Changes Eyes: No Pain, No Vision change, No Conjunctivae inflammation, No Eyelid inflammation, No Other, No Redness ENT: No Ear pain, No Ear discharge, No Nose pain, No Nose discharge, No Nose congestion, No Mouth pain, No Mouth swelling, No Throat pain, No Throat swelling, No Other Cardiovascular: No Chest Pain, No Palpitations, No Orthopnea, No Paroxysmal Noc. Dyspnea, No Edema, No Lt Headedness, No Other Respiratory: No Cough, No Dry, No Shortness of breath, No SOB with excertion, No Wheezing, No Hemoptysis, No Pleuritic Pain, No Sputum, No Other Gastrointestinal: No Nausea, No Vomiting, No Abdominal Pain, No Diarrhea, No Constipation, No Melena, No Hematochezia, No Other Genitourinary: No Dysuria, No Frequency, No Incontinence, No Hematuria, No Retention, No Other Musculoskeletal: other (Right foot surgery 2 weeks ago); No neck pain, No shoulder pain, No arm pain, No back pain, No hand pain; leg pain (Left); No foot pain Skin: No Rash, No Lesions, No Jaundice, No Bruising; Other (Right foot wound) Objective Vitals Vital Signs Date Time Temp Pulse Resp B/P (MAP) Pulse Ox O2 Delivery O2 Flow Rate FiO2 03/24/25 10:15 105/52 03/24/25 09:00 97.9 68 17 96 97.9 03/24/25 08:12 Room Air* 0 21 Intake/Output Intake and Output 03/24/25 07:00 Intake Total 310 ml Balance 310 ml Intake Oral 310 ml # Voids 4 # Bowel Movements 4 Medications Current Medications Medications Dose Ordered Sig/Mely Route Start Time Stop Time Status Last Admin Dose Admin Atorvastatin Calcium 20 mg HS PO 03/21/25 22:00 03/23/25 22:28 20 MG Lisinopril 10 mg DAILY PO 03/22/25 10:00 03/24/25 10:15 10 MG Enoxaparin Sodium 90 mg Q12HR SC 03/22/25 10:00 03/24/25 10:14 90 MG Famotidine 20 mg Q12HR IV 03/21/25 22:00 03/24/25 10:15 20 MG Dextrose 50 ml UD PRN IV 03/21/25 22:00 Sodium Chloride 10 ml Q8HR IV 03/21/25 22:00 03/24/25 06:00 10 ML Acetaminophen/ Hydrocodone Bitart 1 tab Q4HP PRN PO 03/21/25 22:00 Ondansetron HCl 4 mg Q4HP PRN IV 03/21/25 22:00 Docusate Sodium 100 mg BIDPRN PRN PO 03/21/25 22:00 Acetaminophen 650 mg Q6HP PRN PO 03/21/25 22:00 Nitroglycerin 0.4 mg Q5MINP PRN SL 03/21/25 22:30 Morphine Sulfate 2 mg Q30M PRN IV 03/21/25 22:30 Diagnostic Test (Pha) 1 strip ACHS 03/23/25 11:30 03/24/25 10:40 1 STRIP Insulin Human Regular ACHS SC 03/23/25 11:30 03/24/25 10:41 6 UNITS Clindamycin HCl 450 mg Q8HR PO 03/23/25 15:25 03/24/25 06:40 450 MG Laboratory Results Laboratory Tests 03/22/25 05:22 Labs and/or images reviewed: Labs reviewed by me, Image(s) reviewed by me Assessment/Plan Assessment/Plan DVT left lower extremity: Lovenox 1 milligram/kilos subQ b.i.d. 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 Soto, consult placed Time Spent 50 minutes Advanced care planning time 20 minutes Patient is full code Plan discussed with: Patient My Orders Orders - OMAR ADDISON MD Procedure Category Date Status Time Clindamycin Capsule PHA 03/23/25 In Process (Cleocin Capsule) 15:25 Date of Service: Mar 24, 2025 Billing Provider: OMAR ADDISON MD Common Visit Codes: [id number] INP/OBS CARE(HIGH) OMAR ADDISON MD Mar 24, 2025 11:07
--- NOTE | 2025-03-24 13:04 | DVHCONRES ---
Date Seen: Mar 24, 2025 Reason for Consultation Right foot wound History of Present Illness The patient is a 55-year-old female with past medical history of chronic leg cellulitis, diabetes mellitus, DVTs, hyperlipidemia, and hypertension who presented to [facility] ED with complaint of left leg pain. Patient reports she has been experiencing left leg pain for the past few days, currently not on any blood thinner, extremity venous study done yesterday revealed positive DVT in the left leg. Patient was started on Lovenox 90 mg, please see medication orders section in the computer. Laboratory data shows WBC 9.5, platelets 202, sodium 140, potassium 4.1, BUN 17, creatinine 1.10, GFR 58, glucose 129, calcium 9.3, blood pressure 152/64, heart rate 79, temperature 98.3 F, O2 saturation 99% on room. On my assessment, patient denied chest pain, no headache, no dizziness, no shortness of breaths, no nausea, no vomiting, no fever, no chills. Patient was admitted for further evaluation and management of DVT. Past Medical History See H&P Past Surgical History See H&P Family History: FH: stomach cancer G8 FATHER Malignant neoplasm of endometrium G8 MOTHER Allergies: Coded Allergies: Vancomycin (Verified Allergy, Unknown, 01/30/24) RASH AND ITCHING Home Meds Active Scripts Meclizine HCl (Meclizine) 25 Mg Chw, 25 MG PO Q6HP PRN, #30 CHW Prov:RITCHIE KAT MD 12/17/24 Reported Medications Metformin HCl (Metformin Hydrochloride) 1,000 Mg Tab, 1000 MG PO BID, TAB 02/27/25 Insulin Aspart Protamine & Asp (Insulin Aspart Protamine/ (70-30) 100 Unit/ml) 1 Inj Inj, 16 UNITS SC QPM, INJ 09/12/19 Insulin Aspart Protamine & Asp (Novolog Mix 70/30 Prefill (70-30) 100 Unit/ml) 1 Inj Inj, 56 UNITS SC QAM, INJ 09/12/19 Aspirin (EQ ASPIRIN ADULT LOW DOSE) 81 Mg Tab 09/12/19 Atorvastatin Calcium (ATORVASTATIN CALCIUM) 40 Mg Tab 09/12/19 Lisinopril (Lisinopril) 10 Mg Tab 09/12/19 Current Medications Current Medications Medications (Trade) Dose Ordered Sig/Mely Route PRN Reason Start Time Stop Time Status Last Admin Clindamycin HCl (Cleocin Capsule) 450 mg Q8HR PO 03/23/25 15:25 03/24/25 06:40 Vital Signs Vital Signs Date Time Temp Pulse Resp B/P (MAP) Pulse Ox O2 Delivery O2 Flow Rate FiO2 03/24/25 10:15 105/52 03/24/25 09:00 97.9 68 17 96 97.9 03/24/25 08:12 Room Air* 0 21 Physical Exam Dermatological: Skin is dry with mild erythema and some maceration around the wound site No gross deformities noted Mild non-pitting edema present bilaterally Right sub 1st wound granular base proximally 1 cm x 1 0 x 0.5 Vascular: Dorsalis pedis and posterior tibial pulses are 1+ bilaterally Capillary refill is under 2 seconds Skin temperature is warm bilaterally Neurologic: Protective sensation is absent on the plantar forefoot bilaterally Monofilament testing reveals decreased sensation in multiple plantar sites Musculoskeletal: Range of motion at the ankle and MTP joints is within normal limits. Strength is 5/5 in all tested muscle groups. Gait is antalgic due to offloading of the affected limb. Labs/Diagnostic Data Labs Test 03/24/25 10:25 03/22/25 05:22 Range/Units POC Glucose 233 H 70-106 mg/dl White Blood Count 9.3 4.4-10.8 10^3/uL Red Blood Count 4.62 4.0-5.20 10^6/uL Hemoglobin 13.3 12.2-16.2 g/dL Hematocrit 40.4 36.0-46.0 % Mean Corpuscular Volume 87.5 # 80.0-100.0 fL Mean Corpuscular Hemoglobin 28.7 28.0-32.0 pg Mean Corpuscular Hemoglobin Concent 32.8 32.0-36.0 g/dL Red Cell Distribution Width 14.0 11.8-14.3 % Platelet Count 280 140-450 10^3/uL Mean Platelet Volume 7.8 6.9-10.8 fL Neutrophils (%) (Auto) 55.1 37.0-80.0 % Lymphocytes (%) (Auto) 33.5 10.0-50.0 % Monocytes (%) (Auto) 8.9 0.0-12.0 % Eosinophils (%) (Auto) 1.9 0.0-7.0 % Basophils (%) (Auto) 0.6 0.0-2.0 % Neutrophils # (Auto) 5.1 1.6-8.6 10 ^3/uL Lymphocytes # (Auto) 3.1 0.4-5.4 10 ^3/uL Monocytes # (Auto) 0.8 0-1.3 10 ^3/uL Eosinophils # (Auto) 0.2 0-0.8 10 ^3/uL Basophils # (Auto) 0.1 0-0.2 10 ^3/uL Nucleated Red Blood Cells 0.1 % Sodium Level 137 136-145 mmol/L Potassium Level 3.7 3.5-5.1 mmol/L Chloride Level 108 H 98-107 mmol/L Carbon Dioxide Level 18 L 20-31 mmol/L Anion Gap 11 5-15 Blood Urea Nitrogen 7 #L 9-23 mg/dL Creatinine 0.96 0.550-1.02 mg/dL Glomerular Filtration Rate Calc 69 >90 mL/min BUN/Creatinine Ratio 7.3 L 10.0-20.0 Serum Glucose 172 H 74-106 mg/dL Calcium Level 9.3 8.7-10.4 mg/dL Total Bilirubin 0.5 0.2-1.0 mg/dL Aspartate Amino Transferase (AST) 17 13-40 U/L Alanine Aminotransferase (ALT) 12 7-40 U/L Alkaline Phosphatase 82 46-116 U/L Total Protein 7.3 5.7-8.2 g/dL Albumin 4.1 3.2-4.8 g/dL Problems(with codes): (1) Cellulitis of right lower extremity (2) Diabetic foot ulcer (3) Cellulitis (4) Acute bronchitis (5) Sepsis (6) UTI (urinary tract infection) (7) Osteomyelitis (8) Allergic reaction caused by a drug (9) Ulcer of left foot (10) Diabetic foot ulcer associated with type 2 diabetes mellitus, with fat layer exposed (11) Gangrene of left foot (12) Renal insufficiency (13) Dizziness (14) DVT (deep vein thrombosis) in (15) Deep vein thrombosis of left lower extremity (16) Diabetes mellitus with hyperglycemia Plan/Recommendation ASSESSMENT: Patient is a 79-year-old seen for right foot wound PLAN: - The patients chart was reviewed, clinical findings were discussed with the patient, the etiologies of the conditions were discussed in detail, and a treatment plan was agreed to at this time, with both oral and written instructions provided. - previously seen in the surgery everything looks good - leave dressings place until Sunday - continue to treat DVT left leg - follow up with me on Sunday All questions were answered and concerns addressed to the patient's satisfaction. The patient was given the phone number to the clinic and was told how to make contact with the clinic should any concerns or questions arise. Patient understands that if any questions or concerns arise prior to the next appointment, we should be contacted immediately. FOLLOW-UP: Continue to follow while inpatient Plan discussed with: Patient Visit Coding Podiatry Date of Service if different f: Mar 24, 2025 Billing Provider: KELLY CASTELLANOS DPM Podiatry Common Visit Codes: CONSULT ONLY Podiatry Consult Codes: [id number] NEW/EST HI 80 KELLY CASTELLANOS DPM Mar 24, 2025 13:04
--- NOTE | 2025-03-24 13:45 | DVHCONRES ---
Date Seen: Mar 24, 2025 Resident Creating Document: FATUMA MCGEE RESIDENT Referring Physician OMAR ADDISON MD Reason for Consultation DVT left lower extremity, history of recurrent DVT, status post IVC filter History of Present Illness 59-year-old female with a history of type 2 diabetes mellitus (on insulin and oral agents), hypertension, hyperlipidemia, chronic lower extremity cellulitis, and recurrent DVT. She underwent right leg surgery three weeks ago, now presents with left leg swelling and pain for several days was found to have DVT in left common femoral vein to the superficial femoral vein distally. She has a history of DVT in the right leg 12 years ago post-surgery, treated with thrombectomy and IVC filter placement. She has remained off long-term anticoagulation since, on only ASA 81 mg daily at home. No history of PCI, arrhythmias, or heart failure. Currently on enoxaparin (Lovenox 90 mg SC q12h). The plan is to transition to apixaban 10 mg BID for 7 days then 5 mg BID for at least 3 months. She denies chest pain, palpitations, orthopnea, hemoptysis, or syncope. Diagnostics * Venous Doppler (03/22/25): Positive acute DVT from left common femoral vein to superficial femoral vein distally. * CT Angio LE (01/2024): * Infrarenal IVC filter in place. * Patent abdominal aorta and iliacs with diffuse atherosclerotic calcification. * Right peroneal artery occluded, left mid-peroneal artery occluded. * Poor flow in bilateral dorsalis pedis arteries. * Chronic destructive post-op changes left midfoot. * ECG (12/17/24): Sinus rhythm, rate 97 bpm, low precordial voltage, QTc 431 ms, no ischemia. * Hematology (03/22/25): Hgb 13.3 g/dL, WBC 9.3, Plt 280. Stable counts. * Coagulation (03/23/25): PT 10.3, INR 0.97, aPTT 23.5 (slightly low). Prior D- dimer 4.81 (elevated). * Chemistry (03/22/25): Na 137, K 3.7, Cr 0.96, GFR 69. Glucose 487912. Albumin 4.1. Calcium 9.3. LFTs normal. * Troponin I HS (03/23/25): <3 ng/L (normal). * Lipid panel: HLD on atorvastatin. Past Medical History * Medical: DM2, HTN, HLD, chronic cellulitis, recurrent DVT. Past Surgical History * Right leg thrombectomy (12 yrs ago). * IVC filter placement (~1315 yrs ago, infrarenal, confirmed on CT angio 01/2024). * Multiple right foot surgeries (2023) for osteomyelitis, abscess, diabetic ulcer. * Left foot Odell osteotomies (1st5th metatarsals), hammer toe repair, and EHL tenotomy (Feb 2025). Family History: FH: stomach cancer G8 FATHER Malignant neoplasm of endometrium G8 MOTHER Social History Non-smoker, denies alcohol or drug use. Allergies: Coded Allergies: Vancomycin (Verified Allergy, Unknown, 01/30/24) RASH AND ITCHING Home Meds Active Scripts Meclizine HCl (Meclizine) 25 Mg Chw, 25 MG PO Q6HP PRN, #30 CHW Prov:RITCHIE KAT MD 12/17/24 Reported Medications Metformin HCl (Metformin Hydrochloride) 1,000 Mg Tab, 1000 MG PO BID, TAB 02/27/25 Insulin Aspart Protamine & Asp (Insulin Aspart Protamine/ (70-30) 100 Unit/ml) 1 Inj Inj, 16 UNITS SC QPM, INJ 09/12/19 Insulin Aspart Protamine & Asp (Novolog Mix 70/30 Prefill (70-30) 100 Unit/ml) 1 Inj Inj, 56 UNITS SC QAM, INJ 09/12/19 Aspirin (EQ ASPIRIN ADULT LOW DOSE) 81 Mg Tab 09/12/19 Atorvastatin Calcium (ATORVASTATIN CALCIUM) 40 Mg Tab 09/12/19 Lisinopril (Lisinopril) 10 Mg Tab 09/12/19 Current Medications Current Medications Medications (Trade) Dose Ordered Sig/Mely Route PRN Reason Start Time Stop Time Status Last Admin Clindamycin HCl (Cleocin Capsule) 450 mg Q8HR PO 03/23/25 15:25 03/24/25 06:40 Review of Systems * General: No fever, chills, fatigue, or weight loss. * Cardiac: No chest pain, palpitations, syncope, orthopnea, or PND. * Respiratory: No cough, no hemoptysis, no shortness of breath. * GI: No abdominal pain, melena, hematochezia. * : No hematuria, no dysuria. * MSK: Left leg pain and swelling, no arm or back pain. Recent right foot surgery and left foot osteotomies noted. * Skin: No rash, jaundice, or bruising. Right foot wound post-op present. Vital Signs Vital Signs Date Time Temp Pulse Resp B/P (MAP) Pulse Ox O2 Delivery O2 Flow Rate FiO2 03/24/25 13:00 98.0 71 18 129/76 (93) 94 98.0 03/24/25 08:12 Room Air* 0 21 Physical Exam * General: Alert, oriented, no acute distress. * CV: RRR, normal S1/S2, no murmurs, no JVD. * Resp: Lungs clear, no wheezes or rales. * Extremities: Left thigh and calf larger than right with pitting pedal edema and tenderness. No edema right leg. Right foot surgical wound with clean dressing. * Skin: No rash or jaundice. * Neuro: Grossly intact. Labs/Diagnostic Data Labs Test 03/24/25 10:25 03/22/25 05:22 Range/Units POC Glucose 233 H 70-106 mg/dl White Blood Count 9.3 4.4-10.8 10^3/uL Red Blood Count 4.62 4.0-5.20 10^6/uL Hemoglobin 13.3 12.2-16.2 g/dL Hematocrit 40.4 36.0-46.0 % Mean Corpuscular Volume 87.5 # 80.0-100.0 fL Mean Corpuscular Hemoglobin 28.7 28.0-32.0 pg Mean Corpuscular Hemoglobin Concent 32.8 32.0-36.0 g/dL Red Cell Distribution Width 14.0 11.8-14.3 % Platelet Count 280 140-450 10^3/uL Mean Platelet Volume 7.8 6.9-10.8 fL Neutrophils (%) (Auto) 55.1 37.0-80.0 % Lymphocytes (%) (Auto) 33.5 10.0-50.0 % Monocytes (%) (Auto) 8.9 0.0-12.0 % Eosinophils (%) (Auto) 1.9 0.0-7.0 % Basophils (%) (Auto) 0.6 0.0-2.0 % Neutrophils # (Auto) 5.1 1.6-8.6 10 ^3/uL Lymphocytes # (Auto) 3.1 0.4-5.4 10 ^3/uL Monocytes # (Auto) 0.8 0-1.3 10 ^3/uL Eosinophils # (Auto) 0.2 0-0.8 10 ^3/uL Basophils # (Auto) 0.1 0-0.2 10 ^3/uL Nucleated Red Blood Cells 0.1 % Sodium Level 137 136-145 mmol/L Potassium Level 3.7 3.5-5.1 mmol/L Chloride Level 108 H 98-107 mmol/L Carbon Dioxide Level 18 L 20-31 mmol/L Anion Gap 11 5-15 Blood Urea Nitrogen 7 #L 9-23 mg/dL Creatinine 0.96 0.550-1.02 mg/dL Glomerular Filtration Rate Calc 69 >90 mL/min BUN/Creatinine Ratio 7.3 L 10.0-20.0 Serum Glucose 172 H 74-106 mg/dL Calcium Level 9.3 8.7-10.4 mg/dL Total Bilirubin 0.5 0.2-1.0 mg/dL Aspartate Amino Transferase (AST) 17 13-40 U/L Alanine Aminotransferase (ALT) 12 7-40 U/L Alkaline Phosphatase 82 46-116 U/L Total Protein 7.3 5.7-8.2 g/dL Albumin 4.1 3.2-4.8 g/dL Assessment 1. Acute proximal left lower extremity DVT new, provoked by recent surgery, with significant swelling and pain. 2. History of recurrent DVTs right leg thrombectomy 12 yrs ago, chronic hypercoagulability not yet fully evaluated. 3. Status post permanent IVC filter placed 1315 yrs ago, remains in place; increases thrombosis risk without anticoagulation. 4. Peripheral arterial disease occlusion of peroneal arteries bilaterally, poor distal pedal flow (confirmed CT angio). 5. Diabetes mellitus type 2 with hyperglycemia on insulin, oral agents, glucose 950265, HbA1c not available but likely elevated. 6. Hypertension controlled on lisinopril. 7. Hyperlipidemia on atorvastatin, LDL controlled. 8. Chronic diabetic foot wounds & surgical history right partial metatarsal amputation (2023), left foot osteotomies (2024), high risk of infection. 9. Peripheral vascular disease with diabetic ulcers chronic limb ischemia risk. Plan/Recommendation Plan Cardiovascular / Vascular * Transition anticoagulation: * DC enoxaparin 90 mg SC q12h * Transition to apixaban 10 mg PO BID 7 days (/), then 5 mg PO BID 3 months minimum. * Continue ASA 81 mg daily and atorvastatin 20 mg daily. * Vascular surgery consult for IVC filter surveillance (possible retrieval not feasible given >10 yrs indwelling, but evaluation recommended). * Hematology consult for hypercoagulable work-up. * Compression stockings when swelling improves. Renal / Hematology * Monitor daily BMP, CBC, coagulation panel. * Maintain renal dose safety for DOAC (GFR >60, Cr 0.96). Peripheral Vascular / Wound * Wound care consult for right and left foot surgical wounds. * Continue antibiotics per primary team (Clindamycin 450 mg PO q8h for cell ulitis). * Strict off-loading and wound care protocol. Hypertension / Lipids * Continue lisinopril 10 mg daily. * Continue atorvastatin nightly. Prophylaxis & Supportive * GI prophylaxis: famotidine IV/PO while on anticoagulation. * Pain control: avoid NSAIDs; continue acetaminophen and opioids PRN. * Encourage ambulation as tolerated; PT/OT consult. Thank you for the consult we are signing off on this patient. Plan discussed with: Patient Visit Coding Cardiology RES Date of Service: Mar 24, 2025 Billing Provider: JONI MANUEL MD, RAGHAVA RAO RESIDENT Mar 24, 2025 13:45
[2025-03-24] MEDS: APIXABAN 5 MG TAB PO SCH (23:06)
[2025-03-25] VITALS (8 sets, daily range): BP systolic 98–130; BP diastolic 45–69; PULSE 49–75; RESP 15–20; TEMP 97.1–98.4; O2SAT 95–99
[2025-03-25] MEDS: HYDROcodone-ACET 5/325MG TAB PO PRN (01:02)
--- NOTE | 2025-03-25 09:49 | DVHPN2 ---
Reviewed: Care Plan, H&P, Labs, Medications, Previous Orders, Radiology Changes from previous H/P or p: No Changes Eyes: No Pain, No Vision change, No Conjunctivae inflammation, No Eyelid inflammation, No Other, No Redness ENT: No Ear pain, No Ear discharge, No Nose pain, No Nose discharge, No Nose congestion, No Mouth pain, No Mouth swelling, No Throat pain, No Throat swelling, No Other Cardiovascular: No Chest Pain, No Palpitations, No Orthopnea, No Paroxysmal Noc. Dyspnea, No Edema, No Lt Headedness, No Other Respiratory: No Cough, No Dry, No Shortness of breath, No SOB with excertion, No Wheezing, No Hemoptysis, No Pleuritic Pain, No Sputum, No Other Gastrointestinal: No Nausea, No Vomiting, No Abdominal Pain, No Diarrhea, No Constipation, No Melena, No Hematochezia, No Other Genitourinary: No Dysuria, No Frequency, No Incontinence, No Hematuria, No Retention, No Other Musculoskeletal: other (Right foot surgery 2 weeks ago); No neck pain, No shoulder pain, No arm pain, No back pain, No hand pain; leg pain (Left); No foot pain Skin: No Rash, No Lesions, No Jaundice, No Bruising; Other (Right foot wound) Objective Vitals Vital Signs Date Time Temp Pulse Resp B/P (MAP) Pulse Ox O2 Delivery O2 Flow Rate FiO2 03/25/25 08:42 97.9 53 15 101/56 (71) 98 97.9 03/24/25 20:00 Room Air* 0 21 Intake/Output Intake and Output 03/25/25 07:00 Intake Total 1424 ml Balance 1424 ml Intake Oral 1424 ml # Voids 7 # Bowel Movements 1 Medications Current Medications Medications Dose Ordered Sig/Mely Route Start Time Stop Time Status Last Admin Dose Admin Atorvastatin Calcium 20 mg HS PO 03/21/25 22:00 03/24/25 23:06 20 MG Lisinopril 10 mg DAILY PO 03/22/25 10:00 03/24/25 10:15 10 MG Famotidine 20 mg Q12HR IV 03/21/25 22:00 03/24/25 23:12 20 MG Dextrose 50 ml UD PRN IV 03/21/25 22:00 Sodium Chloride 10 ml Q8HR IV 03/21/25 22:00 03/25/25 05:04 10 ML Acetaminophen/ Hydrocodone Bitart 1 tab Q4HP PRN PO 03/21/25 22:00 03/25/25 01:02 1 TAB Ondansetron HCl 4 mg Q4HP PRN IV 03/21/25 22:00 Docusate Sodium 100 mg BIDPRN PRN PO 03/21/25 22:00 Acetaminophen 650 mg Q6HP PRN PO 03/21/25 22:00 Nitroglycerin 0.4 mg Q5MINP PRN SL 03/21/25 22:30 Morphine Sulfate 2 mg Q30M PRN IV 03/21/25 22:30 Diagnostic Test (Pha) 1 strip ACHS 03/23/25 11:30 03/25/25 05:48 1 STRIP Insulin Human Regular ACHS SC 03/23/25 11:30 03/24/25 22:00 6 UNITS Clindamycin HCl 450 mg Q8HR PO 03/23/25 15:25 03/25/25 05:03 450 MG Apixaban 10 mg BID PO 03/24/25 22:00 03/31/25 21:59 03/24/25 23:06 10 MG Apixaban 5 mg BID PO 04/01/25 10:00 Laboratory Results Laboratory Tests 03/22/25 05:22 Labs and/or images reviewed: Labs reviewed by me, Image(s) reviewed by me Assessment/Plan Assessment/Plan DVT left lower extremity: Lovenox 1 milligram/kilos subQ b.i.d., transitioned to Eliquis History of DVT S/p IVC filter, cardiology consult for recurrent DVT appreciated Cellulitis lt lower extremities clindamycin 450 mg PO TID Diabetes insulin sliding scale Hypertension Hypercholesterolemia History of bunionectomy right great toe three weeks ago by Dr. Soto, consult by Dr Soto appreciated Time Spent 50 minutes Advanced care planning time 20 minutes Patient is full code Plan discussed with: Patient My Orders Orders - OMAR ADDISON MD Procedure Category Date Status Time * Cardiology Consult CONS 03/24/25 Transmitted 11:07 *Podiatry Consult CONS 03/24/25 Transmitted Brittany([facility]) 11:08 Date of Service: Mar 25, 2025 Billing Provider: OMAR ADDISON MD Common Visit Codes: [id number] INP/OBS CARE(HIGH) OMAR ADDISON MD Mar 25, 2025 09:49
[2025-03-25] MEDS ORDERED: FAMOTIDINE 20 MG TAB PO ONE (14:45)
[2025-03-26 00:51] VITALS: BP 104/48; PULSE 69; RESP 16; TEMP 98.3; O2SAT 98
--- NOTE | 2025-03-26 01:41 | DVHINCON2 ---
Date of service: Mar 24, 2025 Referring Physician Lee Reason for Consultation DVT left lower extremity, history of recurrent DVT, status post IVC filter History of Present Illness This is a 59-year-old female with a past medical history of type 2 diabetes mellitus (on insulin and oral agents), hypertension, hyperlipidemia, chronic lower extremity cellulitis, and recurrent DVT. She underwent right leg surgery three weeks ago presents to the ED with complains of left leg swelling and pain for several days was found to have DVT in left common femoral vein to the superficial femoral vein distally. Patient has remained off long-term anticoagulation since, on only ASA 81 mg daily at home. No history of PCI, arrhythmias, or heart failure.Patient is currently on enoxaparin (Lovenox 90 mg SC q12h). The plan is to transition to apixaban 10 mg BID for 7 days then 5 mg BID for at least 3 months. GLUC 370. Patient was admitted to the hospital. I am asked to consult on this patient. Diagnostics * Venous Doppler (03/22/25): Positive acute DVT from left common femoral vein to superficial femoral vein distally. * CT Angio LE (01/2024): * Infrarenal IVC filter in place. * Patent abdominal aorta and iliacs with diffuse atherosclerotic calcification. * Right peroneal artery occluded, left mid-peroneal artery occluded. * Poor flow in bilateral dorsalis pedis arteries. * Chronic destructive post-op changes left midfoot. * ECG (12/17/24): Sinus rhythm, rate 97 bpm, low precordial voltage, QTc 431 ms, no ischemia. * Hematology (03/22/25): Hgb 13.3 g/dL, WBC 9.3, Plt 280. Stable counts. * Coagulation (03/23/25): PT 10.3, INR 0.97, aPTT 23.5 (slightly low). Prior D- dimer 4.81 (elevated). * Chemistry (03/22/25): Na 137, K 3.7, Cr 0.96, GFR 69. Glucose [id number]. Albumin 4.1. Calcium 9.3. LFTs normal. * Troponin I HS (03/23/25): <3 ng/L (normal). * Lipid panel: HLD on atorvastatin. Past Medical History DM2, HTN, HLD, chronic cellulitis, recurrent DVT. Past Surgical History Right leg thrombectomy ( yrs ago). IVC filter placement (~1315 yrs ago, infrarenal, confirmed on CT angio 01/2024). Multiple right foot surgeries (2023) for osteomyelitis, abscess, diabetic ulcer. Left foot Odell osteotomies (1st5th metatarsals), hammer toe repair, and EHL tenotomy (Feb 2025). Family History: FH: stomach cancer G8 FATHER Malignant neoplasm of endometrium G8 MOTHER Allergies: Coded Allergies: Vancomycin (Verified Allergy, Unknown, 01/30/24) RASH AND ITCHING Home Meds Active Scripts Meclizine HCl (Meclizine) 25 Mg Chw, 25 MG PO Q6HP PRN, #30 CHW Prov:RITCHIE KAT MD 12/17/24 Reported Medications Metformin HCl (Metformin Hydrochloride) 1,000 Mg Tab, 1000 MG PO BID, TAB 02/27/25 Insulin Aspart Protamine & Asp (Insulin Aspart Protamine/ (70-30) 100 Unit/ml) 1 Inj Inj, 16 UNITS SC QPM, INJ 09/12/19 Insulin Aspart Protamine & Asp (Novolog Mix 70/30 Prefill (70-30) 100 Unit/ml) 1 Inj Inj, 56 UNITS SC QAM, INJ 09/12/19 Aspirin (EQ ASPIRIN ADULT LOW DOSE) 81 Mg Tab 09/12/19 Atorvastatin Calcium (ATORVASTATIN CALCIUM) 40 Mg Tab 09/12/19 Lisinopril (Lisinopril) 10 Mg Tab 09/12/19 Current Medications Current Medications Medications (Trade) Dose Ordered Sig/Mely Route PRN Reason Start Time Stop Time Status Last Admin Apixaban (Eliquis) 10 mg BID PO 03/24/25 22:00 03/31/25 21:59 03/25/25 10:08 Apixaban (Eliquis) 5 mg BID PO 04/01/25 10:00 Famotidine (Pepcid Tablet) 20 mg DAILY PO 03/26/25 10:00 UNV Review of Systems * General: No fever, chills, fatigue, or weight loss. * Cardiac: No chest pain, palpitations, syncope, orthopnea, or PND. * Respiratory: No cough, no hemoptysis, no shortness of breath. * GI: No abdominal pain, melena, hematochezia. * : No hematuria, no dysuria. * MSK: Left leg pain and swelling, no arm or back pain. Recent right foot surgery and left foot osteotomies noted. * Skin: No rash, jaundice, or bruising. Right foot wound post-op present. Vital Signs Vital Signs Date Time Temp Pulse Resp B/P (MAP) Pulse Ox O2 Delivery O2 Flow Rate FiO2 03/25/25 13:00 97.9 66 15 130/64 (86) 99 97.9 03/25/25 08:00 Room Air* 0 21 Physical Exam GENERAL: Alert and oriented x 3. No acute distress. EYES: PERRL, EOMI. Anicteric. HENT: Moist mucous membranes. LUNGS: Clear to auscultation bilaterally. CARDIOVASCULAR: Regular rate and rhythm. ABDOMEN: Soft, nontender and nondistended. EXTREMITIES: Left thigh and calf larger than right with pitting pedal edema and tenderness. No edema right leg. Right foot surgical wound with clean dressing. NEUROLOGIC: No focal neurological deficits. SKIN: Warm, dry. Labs/Diagnostic Data Labs Test 03/25/25 11:16 03/22/25 05:22 Range/Units POC Glucose 370 H 70-106 mg/dl White Blood Count 9.3 4.4-10.8 10^3/uL Red Blood Count 4.62 4.0-5.20 10^6/uL Hemoglobin 13.3 12.2-16.2 g/dL Hematocrit 40.4 36.0-46.0 % Mean Corpuscular Volume 87.5 # 80.0-100.0 fL Mean Corpuscular Hemoglobin 28.7 28.0-32.0 pg Mean Corpuscular Hemoglobin Concent 32.8 32.0-36.0 g/dL Red Cell Distribution Width 14.0 11.8-14.3 % Platelet Count 280 140-450 10^3/uL Mean Platelet Volume 7.8 6.9-10.8 fL Neutrophils (%) (Auto) 55.1 37.0-80.0 % Lymphocytes (%) (Auto) 33.5 10.0-50.0 % Monocytes (%) (Auto) 8.9 0.0-12.0 % Eosinophils (%) (Auto) 1.9 0.0-7.0 % Basophils (%) (Auto) 0.6 0.0-2.0 % Neutrophils # (Auto) 5.1 1.6-8.6 10 ^3/uL Lymphocytes # (Auto) 3.1 0.4-5.4 10 ^3/uL Monocytes # (Auto) 0.8 0-1.3 10 ^3/uL Eosinophils # (Auto) 0.2 0-0.8 10 ^3/uL Basophils # (Auto) 0.1 0-0.2 10 ^3/uL Nucleated Red Blood Cells 0.1 % Sodium Level 137 136-145 mmol/L Potassium Level 3.7 3.5-5.1 mmol/L Chloride Level 108 H 98-107 mmol/L Carbon Dioxide Level 18 L 20-31 mmol/L Anion Gap 11 5-15 Blood Urea Nitrogen 7 #L 9-23 mg/dL Creatinine 0.96 0.550-1.02 mg/dL Glomerular Filtration Rate Calc 69 >90 mL/min BUN/Creatinine Ratio 7.3 L 10.0-20.0 Serum Glucose 172 H 74-106 mg/dL Calcium Level 9.3 8.7-10.4 mg/dL Total Bilirubin 0.5 0.2-1.0 mg/dL Aspartate Amino Transferase (AST) 17 13-40 U/L Alanine Aminotransferase (ALT) 12 7-40 U/L Alkaline Phosphatase 82 46-116 U/L Total Protein 7.3 5.7-8.2 g/dL Albumin 4.1 3.2-4.8 g/dL Assessment Acute proximal left lower extremity DVT. History of recurrent DVTs. Status post permanent IVC filter. Peripheral arterial disease. Diabetes mellitus type 2 with hyperglycemia. Hypertension. Hyperlipidemia. Chronic diabetic foot wounds & surgical history. Peripheral vascular disease with diabetic ulcers. Plan/Recommendation I agree with your ongoing assessment and care of plan. Patient has been seen by Franchesca Cross Resident on my behalf, we have discussed the plan with the patient. DC enoxaparin 90 mg SC q12h Transition to apixaban 10 mg PO BID 7 days (/), then 5 mg PO BID 3 months minimum. Continue ASA 81 mg daily and atorvastatin 20 mg daily. Vascular surgery consult for IVC filter surveillance (possible retrieval not feasible given >10 yrs indwelling, but evaluation recommended). Hematology consult for hypercoagulable work-up. Compression stockings when swelling improves. Monitor daily BMP, CBC, coagulation panel. Maintain renal dose safety for DOAC (GFR >60, Cr 0.96). Wound care consult for right and left foot surgical wounds. Continue antibiotics per primary team (Clindamycin 450 mg PO q8h for cellulitis). Strict off-loading and wound care protocol. Continue lisinopril 10 mg daily. Continue atorvastatin nightly. GI prophylaxis: famotidine IV/PO while on anticoagulation. Pain control: avoid NSAIDs; continue acetaminophen and opioids PRN. Encourage ambulation as tolerated; PT/OT consult. Additional plan as per the hospital course. A total of 45 minutes was spent reviewing the patient record, examining the patient, making a diagnostic and therapeutic plan, discussing this plan with medical personnel, following up on diagnostic studies and following the patient for clinical stability excluding any and all procedures. At least 50% of this time was spent in direct, [id number] contact. Plan discussed with: Patient JONI MANUEL MD Mar 25, 2025 15:34
--- NOTE | 2025-03-26 01:42 | DVHPN2 ---
Progress Note - Dictate Date Seen: Mar 25, 2025 Medical Necessity Reason Pt with a Central, PICC or Fol: No Subjective Patient was seen and evaluated in follow up. Patient is complaining of BLE pain. BS are in the 200's. Telemetry reviewed. vital signs Vital Sign Date Time Temp Pulse Resp B/P (MAP) Pulse Ox O2 Delivery O2 Flow Rate FiO2 03/26/25 00:51 98.3 69 16 104/48 (66) 98 98.3 03/25/25 08:00 Room Air* 0 21 Total Intake and Output 03/25/25 03/25/25 03/26/25 15:00 23:00 07:00 Intake Total 1000 ml Balance 1000 ml medications Current Medications Medications Dose Ordered Sig/Mely Route Start Time Stop Time Status Last Admin Dose Admin Atorvastatin Calcium 20 mg HS PO 03/21/25 22:00 03/25/25 22:20 20 MG Lisinopril 10 mg DAILY PO 03/22/25 10:00 03/24/25 10:15 10 MG Dextrose 50 ml UD PRN IV 03/21/25 22:00 Sodium Chloride 10 ml Q8HR IV 03/21/25 22:00 03/25/25 22:20 10 ML Acetaminophen/ Hydrocodone Bitart 1 tab Q4HP PRN PO 03/21/25 22:00 03/25/25 01:02 1 TAB Ondansetron HCl 4 mg Q4HP PRN IV 03/21/25 22:00 Docusate Sodium 100 mg BIDPRN PRN PO 03/21/25 22:00 Acetaminophen 650 mg Q6HP PRN PO 03/21/25 22:00 Nitroglycerin 0.4 mg Q5MINP PRN SL 03/21/25 22:30 Morphine Sulfate 2 mg Q30M PRN IV 03/21/25 22:30 Diagnostic Test (Pha) 1 strip ACHS 03/23/25 11:30 03/25/25 22:14 1 STRIP Insulin Human Regular ACHS SC 03/23/25 11:30 03/25/25 22:11 6 UNITS Clindamycin HCl 450 mg Q8HR PO 03/23/25 15:25 03/25/25 22:20 450 MG Apixaban 10 mg BID PO 03/24/25 22:00 03/31/25 21:59 03/25/25 22:20 10 MG Apixaban 5 mg BID PO 04/01/25 10:00 Famotidine 20 mg DAILY PO 03/26/25 10:00 objective GENERAL: Alert and oriented x 3. No acute distress. EYES: PERRL, EOMI. Anicteric. HENT: Moist mucous membranes. LUNGS: Clear to auscultation bilaterally. CARDIOVASCULAR: Regular rate and rhythm. ABDOMEN: Soft, nontender and nondistended. EXTREMITIES: Left thigh and calf larger than right with pitting pedal edema and tenderness. No edema right leg. Right foot surgical wound with clean dressing. NEUROLOGIC: No focal neurological deficits. SKIN: Warm, dry. laboratory and microbiology Laboratory Tests 03/22/25 05:22 Test 03/22/25 05:22 Range/Units Serum Glucose 172 H 74-106 mg/dL Problem List Acute proximal left lower extremity DVT. History of recurrent DVTs. Status post permanent IVC filter. Peripheral arterial disease. Diabetes mellitus type 2 with hyperglycemia. Hypertension. Hyperlipidemia. Chronic diabetic foot wounds & surgical history . Peripheral vascular disease with diabetic ulcers. Assessment/Plan Continued all current supportive medical care. Morphine and [place] for pain management. Eliquis. Lipitor. Antibiotics as ordered. Lisinopril. Nitro SL. Additional plan as per the hospital course. Dietary Evaluation Review Comments[facility] Card[facility] Expected Outcomes/Goals: controlled DM, wt loss Plan discussed with: Patient JONI MANUEL MD Mar 26, 2025 00:53
[2025-03-26 04:49] VITALS: BP 90/48; PULSE 60; RESP 16; TEMP 97.9; O2SAT 97
[2025-03-26 08:00] VITALS: PULSE 51; PULSE 65; RESP 18; O2SAT 97
[2025-03-26 09:30] VITALS: BP 101/56; PULSE 54; RESP 18; TEMP 97.8; O2SAT 97
[2025-03-26] MEDS: FAMOTIDINE 20 MG TAB PO SCH (10:07)
--- NOTE | 2025-03-26 11:03 | DVHPN2 ---
Reviewed: Care Plan, H&P, Labs, Medications, Previous Orders, Radiology Changes from previous H/P or p: No Changes Eyes: No Pain, No Vision change, No Conjunctivae inflammation, No Eyelid inflammation, No Other, No Redness ENT: No Ear pain, No Ear discharge, No Nose pain, No Nose discharge, No Nose congestion, No Mouth pain, No Mouth swelling, No Throat pain, No Throat swelling, No Other Cardiovascular: No Chest Pain, No Palpitations, No Orthopnea, No Paroxysmal Noc. Dyspnea, No Edema, No Lt Headedness, No Other Respiratory: No Cough, No Dry, No Shortness of breath, No SOB with excertion, No Wheezing, No Hemoptysis, No Pleuritic Pain, No Sputum, No Other Gastrointestinal: No Nausea, No Vomiting, No Abdominal Pain, No Diarrhea, No Constipation, No Melena, No Hematochezia, No Other Genitourinary: No Dysuria, No Frequency, No Incontinence, No Hematuria, No Retention, No Other Musculoskeletal: other (Right foot surgery 2 weeks ago); No neck pain, No shoulder pain, No arm pain, No back pain, No hand pain; leg pain (Left); No foot pain Skin: No Rash, No Lesions, No Jaundice, No Bruising; Other (Right foot wound) Objective Vitals Vital Signs Date Time Temp Pulse Resp B/P (MAP) Pulse Ox O2 Delivery O2 Flow Rate FiO2 03/26/25 10:00 101/56 03/26/25 09:30 97.8 54 18 97 97.8 03/25/25 20:00 Room Air* 0 21 Intake/Output Intake and Output 03/26/25 07:00 Intake Total 2200 ml Balance 2200 ml Intake Oral 2200 ml # Voids 5 # Bowel Movements 1 Medications Current Medications Medications Dose Ordered Sig/Mely Route Start Time Stop Time Status Last Admin Dose Admin Atorvastatin Calcium 20 mg HS PO 03/21/25 22:00 03/25/25 22:20 20 MG Lisinopril 10 mg DAILY PO 03/22/25 10:00 03/24/25 10:15 10 MG Dextrose 50 ml UD PRN IV 03/21/25 22:00 Sodium Chloride 10 ml Q8HR IV 03/21/25 22:00 03/25/25 22:20 10 ML Acetaminophen/ Hydrocodone Bitart 1 tab Q4HP PRN PO 03/21/25 22:00 03/25/25 01:02 1 TAB Ondansetron HCl 4 mg Q4HP PRN IV 03/21/25 22:00 Docusate Sodium 100 mg BIDPRN PRN PO 03/21/25 22:00 Acetaminophen 650 mg Q6HP PRN PO 03/21/25 22:00 Nitroglycerin 0.4 mg Q5MINP PRN SL 03/21/25 22:30 Morphine Sulfate 2 mg Q30M PRN IV 03/21/25 22:30 Diagnostic Test (Pha) 1 strip ACHS 03/23/25 11:30 03/26/25 06:11 1 STRIP Insulin Human Regular ACHS SC 03/23/25 11:30 03/26/25 06:13 3 UNITS Clindamycin HCl 450 mg Q8HR PO 03/23/25 15:25 03/26/25 06:16 450 MG Apixaban 10 mg BID PO 03/24/25 22:00 03/31/25 21:59 03/26/25 10:07 10 MG Apixaban 5 mg BID PO 04/01/25 10:00 Famotidine 20 mg DAILY PO 03/26/25 10:00 03/26/25 10:07 20 MG Laboratory Results Laboratory Tests 03/22/25 05:22 Labs and/or images reviewed: Labs reviewed by me, Image(s) reviewed by me Assessment/Plan Assessment/Plan DVT left lower extremity: Lovenox 1 milligram/kilos subQ b.i.d., transitioned to Eliquis History of DVT S/p IVC filter, cardiology consult for recurrent DVT appreciated Cellulitis lt lower extremities clindamycin 450 mg PO TID Diabetes insulin sliding scale Hypertension Hypercholesterolemia History of bunionectomy right great toe three weeks ago by Dr. Soto, consult by Dr Soto appreciated Time Spent 50 minutes Advanced care planning time 20 minutes Patient is full code Plan discussed with: Patient My Orders Orders - OMAR ADDISON MD Procedure Category Date Status Time Famotidine Tablet PHA 03/26/25 In Process (Pepcid Tablet) 10:00 Date of Service: Mar 26, 2025 Billing Provider: OMAR ADDISON MD Common Visit Codes: [id number] INP/OBS CARE(HIGH) OMAR ADDISON MD Mar 26, 2025 11:03
[2025-03-26] MEDS ORDERED: APIX5TAB PO (11:04)
[2025-03-26] MEDS ORDERED: CLIN1CAP70 PO (11:05)
--- NOTE | 2025-03-26 11:13 | DVHDS2 ---
Discharge Summary Date of Admission Mar 21, 2025 at 22:17 Date of Discharge: Mar 26, 2025 Admitting Diagnosis Left lower leg swelling Wounds: None Labs/Diagnostic Data: Laboratory Results Test 03/26/25 06:01 03/22/25 05:22 POC Glucose 195 mg/dl (70-106) White Blood Count 9.3 10^3/uL (4.4-10.8) Red Blood Count 4.62 10^6/uL (4.0-5.20) Hemoglobin 13.3 g/dL (12.2-16.2) Hematocrit 40.4 % (36.0-46.0) Mean Corpuscular Volume 87.5 fL (80.0-100.0) Mean Corpuscular Hemoglobin 28.7 pg (28.0-32.0) Mean Corpuscular Hemoglobin Concent 32.8 g/dL (32.0-36.0) Red Cell Distribution Width 14.0 % (11.8-14.3) Platelet Count 280 10^3/uL (140-450) Mean Platelet Volume 7.8 fL (6.9-10.8) Neutrophils (%) (Auto) 55.1 % (37.0-80.0) Lymphocytes (%) (Auto) 33.5 % (10.0-50.0) Monocytes (%) (Auto) 8.9 % (0.0-12.0) Eosinophils (%) (Auto) 1.9 % (0.0-7.0) Basophils (%) (Auto) 0.6 % (0.0-2.0) Neutrophils # (Auto) 5.1 10 ^3/uL (1.6-8.6) Lymphocytes # (Auto) 3.1 10 ^3/uL (0.4-5.4) Monocytes # (Auto) 0.8 10 ^3/uL (0-1.3) Eosinophils # (Auto) 0.2 10 ^3/uL (0-0.8) Basophils # (Auto) 0.1 10 ^3/uL (0-0.2) Nucleated Red Blood Cells 0.1 % Sodium Level 137 mmol/L (136-145) Potassium Level 3.7 mmol/L (3.5-5.1) Chloride Level 108 mmol/L (98-107) Carbon Dioxide Level 18 mmol/L (20-31) Anion Gap 11 (5-15) Blood Urea Nitrogen 7 mg/dL (9-23) Creatinine 0.96 mg/dL (0.550-1.02) Glomerular Filtration Rate Calc 69 mL/min (>90) BUN/Creatinine Ratio 7.3 (10.0-20.0) Serum Glucose 172 mg/dL (74-106) Calcium Level 9.3 mg/dL (8.7-10.4) Total Bilirubin 0.5 mg/dL (0.2-1.0) Aspartate Amino Transferase (AST) 17 U/L (13-40) Alanine Aminotransferase (ALT) 12 U/L (7-40) Alkaline Phosphatase 82 U/L (46-116) Total Protein 7.3 g/dL (5.7-8.2) Albumin 4.1 g/dL (3.2-4.8) Other Laboratory Tests 03/22/25 05:22 Brief Hx & Hospital Course: 59-year-old female with a history of DVT status post IVC filter diabetes hypertension hypercholesterolemia recent bunionectomy right great toe three weeks ago came in for swelling of the left lower extremity found to have DVT left lower extremity started on Lovenox converted to Eliquis seen by Cardiology Dr. Bowman. Given clindamycin for cellulitis of the left lower extremity patient feels better and wants to go home patient on room air at the time of discharge with stable vital signs. Consults/Reason for consult Cardiology Dr. Bowman Operations or Procedures Venous ultrasound Condition at Discharge: Fair Final Diagnosis/Problems List DVT left lower extremity: Lovenox 1 milligram/kilos subQ b.i.d., transitioned to Eliquis History of DVT S/p IVC filter, cardiology consult for recurrent DVT appreciated Cellulitis lt lower extremities clindamycin 450 mg PO TID Diabetes insulin sliding scale Hypertension Hypercholesterolemia History of bunionectomy right great toe three weeks ago by Dr. Soto, consult by Dr Soto appreciated Discharge Disposition: Home Discharge Instruct/Medications Diet: Cardiac 2g Na,low cholest Activity: Light activity Follow Up/Referral: Follow up with the primary Dr in one week Follow up with the Cardiology Dr. Danette Bowman in two weeks Medications: Eliquis Clindamycin Transmitted to [facility]'s Scheduled Apixaban Base (Eliquis), 5 MG PO BID Apixaban Base (Eliquis), 10 MG PO BID Clindamycin Hcl (Clindamycin Hcl), 1 CAP PO TID Insulin Aspart Protamine & Asp (Novolog Mix 70/30 Prefill (70-30) 100 Unit/ml), 56 UNITS SC QAM, (Reported) Insulin Aspart Protamine & Asp (Insulin Aspart Protamine/ (70-30) 100 Unit/ml), 16 UNITS SC QPM, (Reported) Metformin HCl (Metformin Hydrochloride), 1,000 MG PO BID, (Reported) Scheduled PRN Meclizine HCl (Meclizine), 25 MG PO Q6HP PRN Miscellaneous Medications Aspirin (Eq Aspirin Adult Low Dose), (Reported) Atorvastatin Calcium (Atorvastatin Calcium), (Reported) Lisinopril (Lisinopril), (Reported) 35 (Time taken for discharge summary 35 mts) Discharge Statement: "Patient was advised to return to the ER or call 911 if any headaches, dizziness, shortness of breath, chest pain, abdominal pain, bleeding, fevers, or worsening of medical condition. Patient was counseled about treatment plan, medications, possible side effects, patientverbalized understanding. All questions were answered to the best of my ability. This discharge took greater then 30 minutes in planning, reviewing documentation, counseling the patient, and discussing with other team members." ASSESSMENT ASSESSMENT Hospital Course Uneventful Assessment DVT left lower extremity: Lovenox 1 milligram/kilos subQ b.i.d., transitioned to Eliquis History of DVT S/p IVC filter, cardiology consult for recurrent DVT appreciated Cellulitis lt lower extremities clindamycin 450 mg PO TID Diabetes insulin sliding scale Hypertension Hypercholesterolemia History of bunionectomy right great toe three weeks ago by Dr. Soto, consult by Dr Soto appreciated Date of Service: Mar 26, 2025 Billing Provider: OMAR ADDISON MD Common Visit Codes: [id number] INP/OBS CARE(HIGH) OMAR ADDISON MD Mar 26, 2025 11:13
--- NOTE | 2025-03-26 19:55 | DVHPN2 ---
Progress Note - Dictate Date Seen: Mar 26, 2025 Medical Necessity Reason Pt with a Central, PICC or Fol: No Subjective Patient was seen and evaluated in follow up. Patient has no new complaints at this time. Patient denies any cardiac symptoms. Patient is cardiac stable for discharge. Telemetry reviewed. vital signs Vital Sign Date Time Temp Pulse Resp B/P (MAP) Pulse Ox O2 Delivery O2 Flow Rate FiO2 03/26/25 10:00 101/56 03/26/25 09:30 97.8 54 18 97 97.8 03/26/25 08:00 Room Air* 0 21 Total Intake and Output 03/25/25 03/25/25 03/26/25 14:59 22:59 06:59 Intake Total 1000 ml 1200 ml Balance 1000 ml 1200 ml medications Current Medications Medications Dose Ordered Sig/Mely Route Start Time Stop Time Status Last Admin Dose Admin Atorvastatin Calcium 20 mg HS PO 03/21/25 22:00 03/25/25 22:20 20 MG Lisinopril 10 mg DAILY PO 03/22/25 10:00 03/24/25 10:15 10 MG Dextrose 50 ml UD PRN IV 03/21/25 22:00 Sodium Chloride 10 ml Q8HR IV 03/21/25 22:00 03/25/25 22:20 10 ML Acetaminophen/ Hydrocodone Bitart 1 tab Q4HP PRN PO 03/21/25 22:00 03/25/25 01:02 1 TAB Ondansetron HCl 4 mg Q4HP PRN IV 03/21/25 22:00 Docusate Sodium 100 mg BIDPRN PRN PO 03/21/25 22:00 Acetaminophen 650 mg Q6HP PRN PO 03/21/25 22:00 Nitroglycerin 0.4 mg Q5MINP PRN SL 03/21/25 22:30 Morphine Sulfate 2 mg Q30M PRN IV 03/21/25 22:30 Diagnostic Test (Pha) 1 strip ACHS 03/23/25 11:30 03/26/25 11:53 1 STRIP Insulin Human Regular ACHS SC 03/23/25 11:30 03/26/25 06:13 3 UNITS Clindamycin HCl 450 mg Q8HR PO 03/23/25 15:25 03/26/25 06:16 450 MG Apixaban 10 mg BID PO 03/24/25 22:00 03/31/25 21:59 03/26/25 10:07 10 MG Apixaban 5 mg BID PO 04/01/25 10:00 Famotidine 20 mg DAILY PO 03/26/25 10:00 03/26/25 10:07 20 MG objective GENERAL: Alert and oriented x 3. No acute distress. EYES: PERRL, EOMI. Anicteric. HENT: Moist mucous membranes. LUNGS: Clear to auscultation bilaterally. CARDIOVASCULAR: Regular rate and rhythm. ABDOMEN: Soft, nontender and nondistended. EXTREMITIES: Left thigh and calf larger than right with pitting pedal edema and tenderness. No edema right leg. Right foot surgical wound with clean dressing. NEUROLOGIC: No focal neurological deficits. SKIN: Warm, dry. laboratory and microbiology Laboratory Tests 03/22/25 05:22 Test 03/22/25 05:22 Range/Units Serum Glucose 172 H 74-106 mg/dL Problem List Acute proximal left lower extremity DVT. History of recurrent DVTs. Status post permanent IVC filter. Peripheral arterial disease. Diabetes mellitus type 2 with hyperglycemia. Hypertension. Hyperlipidemia. Chronic diabetic foot wounds & surgical history . Peripheral vascular disease with diabetic ulcers. Assessment/Plan Continued all current supportive medical care. Morphine and Tylenol for pain management. Eliquis. Antibiotics as ordered. Nitro SL. Additional plan as per the hospital course. Dietary Evaluation Review Comments: [facility]CHO-60 Cardiac diet Expected Outcomes/Goals: controlled DM, wt loss Plan discussed with: Patient JONI MANUEL MD Mar 26, 2025 13:01
[2025-04-01] MEDS ORDERED: APIXABAN 5 MG TAB PO SCH (10:00)
== END 2025-03-26 13:20 | disposition home or self-care (01) | DRG 197 ==
LOC: ER 16:57 → OVERFLOW 22:17 → TELE-EAST 03-23 17:30
PROVIDERS: ADMIT Family Medicine; ATTEND Family Medicine
DX: I82.412 Acute embolism and thrombosis of left femoral vein (principal); L03.115 Cellulitis of right lower limb; L03.116 Cellulitis of left lower limb; E11.51 Type 2 diabetes mellitus with diabetic peripheral angiopathy without gangrene; E11.622 Type 2 diabetes mellitus with other skin ulcer; E11.65 Type 2 diabetes mellitus with hyperglycemia; I10 Essential (primary) hypertension; Z95.828 Presence of other vascular implants and grafts; E78.00 Pure hypercholesterolemia, unspecified; L98.498 Non-pressure chronic ulcer of skin of other sites with other specified severity; Z80.49 Family history of malignant neoplasm of other genital organs; Z86.718 Personal history of other venous thrombosis and embolism; Z80.0 Family history of malignant neoplasm of digestive organs; Z79.899 Other long term (current) drug therapy; Z79.82 Long term (current) use of aspirin; Z79.4 Long term (current) use of insulin; Z79.01 Long term (current) use of anticoagulants; Z88.1 Allergy status to other antibiotic agents
CPT/HCPCS: 36415; 80048; 80053; 82962; 85025; 96372; G0378; J1815; J3490